=== PATIENT | male | born 1985 | race Caucasian/White ===

== ENCOUNTER 2020-06-28 19:54 | Emergency (ER) | payer MEDICARE, MEDICAID, SELFPAY ==
[2020-06-28 20:35] VITALS: BP 142/79; PULSE 78; RESP 18; TEMP 36.4; O2SAT 96; BMI 51.6
--- NOTE | 2020-06-28 20:48 | PC.NURSE ---
pt undressed in hospital clothing, calm cooperative wants to be seen to have his medications adjusted and to talk to someone. pt states he has had a poor appetite, decreased sleep, medications not working for almost a year now. pt just seen at his psyc and no adjustments made
[2020-06-28 20:56] VITALS: BP 142/79; PULSE 78; RESP 18; TEMP 36.4
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
[2020-06-28 21:52] LABS: Appearance Urine CLEAR; Color Urine YELLOW; Glucose Urine UA NEG (NEG); Leukocyte Esterase Urine NEG (NEG); Nitrite Urine NEG (NEG); Specific Gravity - Urine 1.025 (1.005-1.025); Urine Blood TRACE (NEG); Urine Ketones NEG (NEG); Urine Protein NEG (NEG-TRACE)
[2020-06-28 22:00] LABS: RBC Urine 0-2 /HPF (0); Squamous Epithelial Cell Urine TRACE /LPF; WBC Urine 0 /HPF (0-4)
[2020-06-28 22:04] LABS: Ethanol < 10 mg/dL
[2020-06-28 22:21] LABS: Amphetamine Screen Urine Not Detected (Not Detect); Barbiturates, Urine Not Detected (Not Detect); Benzodiazepines Screen Urine Not Detected (Not Detect); Cannabinoid Screen Urine Not Detected (Not Detect); Cocaine Screen Urine Not Detected (Not Detect); Opiate Screen Urine Not Detected (Not Detect); Phencyclidine Screen Urine Not Detected (Not Detect)
[2020-06-29 00:07] VITALS: BP 122/59; PULSE 77; RESP 16; O2SAT 95
--- NOTE | 2020-06-29 00:32 | PC.NURSE ---
report faxed to [facility] and received.
[2020-06-29 06:38] VITALS: BP 129/61; PULSE 67; RESP 16; TEMP 36.2; O2SAT 96
--- NOTE | 2020-06-29 07:26 | PC.NURSE ---
Report received. PT sleeping in bed. Breathing is even and unlabored. Waiting to be seen by N.
--- NOTE | 2020-06-29 08:39 | PC.NURSE ---
[facility]N at bedside.
[2020-06-29 08:49] VITALS: BP 122/62; PULSE 65; RESP 18; TEMP 37.2; O2SAT 98
--- NOTE | 2020-06-29 10:11 | PC.NURSE ---
PT resting in bed. Calm and cooperative. No complaints at this time.
--- NOTE | 2020-06-29 12:07 | PC.NURSE ---
PT is sleeping in bed. Breathing is even and unlabored. Inpatient bed search in progress.
--- NOTE | 2020-06-29 14:39 | PC.NURSE ---
PT is awake and oriented. PT requesting to go home now. [facility]N is coming to reevaluate prior to discharge.
--- NOTE | 2020-06-29 16:18 | PC.NURSE ---
PT is requesting to go home now. Waiting to be seen by [facility]N per provider.
== END 2020-06-29 17:48 | disposition home or self-care (01) ==
PROVIDERS: Emergency Provider Emergency Medicine; PCP Internal Medicine
DX: R45.851 Suicidal ideations (principal); F31.9 Bipolar disorder, unspecified; F17.200 Nicotine dependence, unspecified, uncomplicated; Z79.899 Other long term (current) drug therapy
CPT/HCPCS: 80307; 80320; 81001; 99285

== ENCOUNTER 2020-07-17 12:41 | Outpatient (REF) | payer MEDICARE, MEDICAID, SELFPAY ==
[2020-07-17 13:24] LABS: MANUAL DIFF FLAG NO
[2020-07-17 13:32] LABS: Basophils Absolute Auto 0.1 X10*3/uL (0.0-0.2); Basophils Percent Auto 0.6 % (0-2); Eosinophils Absolute Auto 0.2 X10*3/uL (0.0-0.4); Eosinophils Percent Auto 2.7 % (0-4); Hematocrit 38.9 % (42-52); Hemoglobin 12.3 g/dl (14.0-18.0); Imm Gran Abs Auto 0.03 X10*3/uL (0.00-0.03); Imm Gran Pct Auto 0.4 % (0.0-0.4); Lymphocytes Absolute Auto 2.4 X10*3/uL (1.2-4.9); Lymphocytes Percent Auto 30.7 % (20-40); Mean Corpuscular HGB Conc 31.6 g/dl (31.0-36.0); Mean Corpuscular Hemoglobin 24.3 pg (27.0-33.0); Mean Corpuscular Volume 76.9 fL (80-98); Mean Platelet Volume 9.5 fL (9.4-12.4); Monocytes Absolute Auto 0.6 X10*3/uL (0.1-1.2); Monocytes Percent Auto 8.2 % (2-11); Neutrophils Absolute Auto 4.5 X10*3/uL (2.0-8.3); Neutrophils Percent Auto 57.4 % (45-73); Platelet Count 305 X10*3/uL (160-400); Red Blood Count 5.06 X10*6/uL (4.60-5.80); Red Cell Distribution Width 13.5 % (11.0-16.0); White Blood Count 7.8 X10*3/uL (4.8-10.8)
== END 2020-07-17 12:42 | disposition home or self-care (01) ==
LOC: HO.LAB 12:41
PROVIDERS: PCP Internal Medicine; Visit Provider Clinical Nurse Specialist Psychiatric/Mental Health, Adult
DX: Z79.899 Other long term (current) drug therapy (principal)
CPT/HCPCS: 36415; 85025

== ENCOUNTER 2020-08-19 13:22 | Outpatient (REF) | payer MEDICARE, MEDICAID, SELFPAY ==
[2020-08-19 14:11] LABS: MANUAL DIFF FLAG NO
[2020-08-19 14:14] LABS: Basophils Absolute Auto 0.1 X10*3/uL (0.0-0.2); Basophils Percent Auto 0.6 % (0-2); Eosinophils Absolute Auto 0.3 X10*3/uL (0.0-0.4); Hematocrit 38.9 % (42-52); Hemoglobin 12.4 g/dl (14.0-18.0); Imm Gran Abs Auto 0.04 X10*3/uL (0.00-0.03); Imm Gran Pct Auto 0.4 % (0.0-0.4); Lymphocytes Absolute Auto 2.9 X10*3/uL (1.2-4.9); Lymphocytes Percent Auto 31.8 % (20-40); Mean Corpuscular HGB Conc 31.9 g/dl (31.0-36.0); Mean Corpuscular Hemoglobin 24.7 pg (27.0-33.0); Mean Corpuscular Volume 77.3 fL (80-98); Mean Platelet Volume 9.8 fL (9.4-12.4); Monocytes Absolute Auto 0.7 X10*3/uL (0.1-1.2); Monocytes Percent Auto 7.9 % (2-11); Neutrophils Percent Auto 56.3 % (45-73); Platelet Count 289 X10*3/uL (160-400); Red Blood Count 5.03 X10*6/uL (4.60-5.80)
== END 2020-08-19 13:23 | disposition home or self-care (01) ==
LOC: HO.LAB 13:22
PROVIDERS: PCP Internal Medicine; Visit Provider Clinical Nurse Specialist Psychiatric/Mental Health, Adult
DX: Z79.899 Other long term (current) drug therapy (principal)
CPT/HCPCS: 36415; 85025

== ENCOUNTER 2020-08-29 05:45 | Inpatient (IN) | payer MEDICARE, MEDICAID, SELFPAY ==
[2020-08-29 06:13] VITALS: BP 167/94; PULSE 94; RESP 18; TEMP 36; O2SAT 97; BMI 51.5
[2020-08-29 06:22] VITALS: BP 167/94; PULSE 94; RESP 20; TEMP 36; O2SAT 97
--- NOTE | 2020-08-29 06:57 | PC.NURSE ---
Report received. PT currently resting, breakfast at bedside. Pt waiting to be seen by provider and [facility]N.
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
--- NOTE | 2020-08-29 07:28 | PC.NURSE ---
LESLY faxed and called, confirmed with Beto.
[2020-08-29 08:06] LABS: Amphetamine Screen Urine Not Detected (Not Detect); Barbiturates, Urine Not Detected (Not Detect); Benzodiazepines Screen Urine Not Detected (Not Detect); Cannabinoid Screen Urine Not Detected (Not Detect); Cocaine Screen Urine Not Detected (Not Detect); Opiate Screen Urine Not Detected (Not Detect); Phencyclidine Screen Urine Not Detected (Not Detect)
[2020-08-29 09:00] VITALS: BP 122/56; PULSE 84; RESP 16; TEMP 37.2; O2SAT 95
--- NOTE | 2020-08-29 09:09 | PC.NURSE ---
[facility] at bedside for eval.
[2020-08-29 14:55] LABS: COVID-19 Test Negative (Negative)
[2020-08-29 15:29] VITALS: BP 125/70; PULSE 80; RESP 17; TEMP 36.8; O2SAT 95
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
[2020-08-29] MEDS: cloZAPine 25 MG TABLET 50 MG PO (21:26)
[2020-08-30 06:00] VITALS: BP 127/70; PULSE 84; TEMP 36.8
--- NOTE | 2020-08-30 08:00 | ECG_ITS ---
Test Reason : QTC Blood Pressure : / mmHG Vent. Rate : 062 BPM Atrial Rate : 062 BPM P-R Int : 138 ms QRS Dur : 120 ms QT Int : 410 ms P-R-T Axes : 029 039 018 degrees QTc Int : 416 ms Normal sinus rhythm Non-specific intra-ventricular conduction delay Borderline ECG When compared to the previous EKG of No significant changes seen Referred By: Radha Cha Electronically Signed By:CHANTEL PHAM MD
[2020-08-30 08:31] LABS: MANUAL DIFF FLAG NO
[2020-08-30 08:38] LABS: Basophils Absolute Auto 0.1 X10*3/uL (0.0-0.2); Basophils Percent Auto 0.6 % (0-2); Eosinophils Absolute Auto 0.3 X10*3/uL (0.0-0.4); Eosinophils Percent Auto 2.1 % (0-4); Hematocrit 37.7 % (42-52); Imm Gran Pct Auto 0.8 % (0.0-0.4); Lymphocytes Absolute Auto 3.3 X10*3/uL (1.2-4.9); Lymphocytes Percent Auto 26.9 % (20-40); Mean Corpuscular HGB Conc 31.8 g/dl (31.0-36.0); Mean Corpuscular Hemoglobin 24.6 pg (27.0-33.0); Mean Corpuscular Volume 77.3 fL (80-98); Mean Platelet Volume 9.2 fL (9.4-12.4); Monocytes Absolute Auto 1.1 X10*3/uL (0.1-1.2); Neutrophils Absolute Auto 7.4 X10*3/uL (2.0-8.3); Neutrophils Percent Auto 60.6 % (45-73); Platelet Count 281 X10*3/uL (160-400); Red Blood Count 4.88 X10*6/uL (4.60-5.80); White Blood Count 12.3 X10*3/uL (4.8-10.8)
[2020-08-30 08:51] LABS: Estimated Average Glucose 111 mg/dL; Hemoglobin A1c % 5.5 %
[2020-08-30] MEDS: cloZAPine 25 MG TABLET PO (08:55)
[2020-08-30] MEDS: cloZAPine 100 MG TABLET PO (08:55)
[2020-08-30] MEDS: OLANZapine 2.5 MG TABLET PO (08:55)
[2020-08-30] MEDS: OLANZapine 10 MG TABLET PO ×2 (08:56→20:58)
[2020-08-30 09:07] LABS: Alanine Aminotransferase 22 U/L (0-40); Alkaline Phosphatase 108 U/L (39-117); Anion Gap 10 (12-20); Aspartate Amino Transferase 15 U/L (5-37); Bilirubin Total 0.4 mg/dL (0.0-1.0); Blood Urea Nitrogen 15 mg/dL (9-16); Carbon Dioxide 32 mmol/L (22-29); Chloride 102 mmol/L (96-108); Cholesterol 147 mg/dL; Creatinine Clr Calc Pharmacy 200.8; Estimated Glomerular Filt Rate > 60; Glucose Fasting 98 mg/dL (60-99); HDL Cholesterol 35 mg/dL; LDL Cholesterol Calculated 60 mg/dl; Potassium 3.8 mmol/l (3.3-5.1); Sodium 140 mmol/L (135-145); Total Protein 6.2 g/dL (6.5-8.0); Triglycerides 263 mg/dL
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
[2020-08-30] MEDS: Omeprazole 20 MG CAPSULE.DR PO (15:57)
[2020-08-30 18:00] VITALS: BP 128/71; PULSE 88; TEMP 36.8
[2020-08-31 06:00] VITALS: BP 129/71; PULSE 84; RESP 20; TEMP 36.3; O2SAT 98
[2020-08-31] MEDS: OLANZapine 2.5 MG TABLET PO (08:20)
[2020-08-31] MEDS: cloZAPine 100 MG TABLET PO (08:20)
[2020-08-31] MEDS: cloZAPine 25 MG TABLET PO (08:21)
--- NOTE | 2020-08-31 12:24 | P.PNPSI_ITS ---
Subjective Subjective Date of Service: 08/31/20 Reason For Visit: depression suicidal ideation Subjective Notes: Conditional Voluntary Interim History: pt isolative, low mood, cooperative, sad, no active SI or HI, feels safe on unit Medication Compliance: Yes Side effects from medications: No Attending Groups: No Review of Systems Review of Systems no change- awaiting EKG results Reports as per HPI and Reports Abnormal speech present Mental Status Exam Mental Status Exam Patient Appearance: Fatigued and Disheveled Patient Orientation: Person, Place, Time and Situation Level of Consciousness: Drowsy (just waking up) Patient Behavior: Appropriate and Cooperative Mood Description: Withdrawn, Depressed, Labile (a little irritable at times) and Apprehensive Affect Description: Calm and Withdrawn Patient Cognition Impaired: No Ability to Follow Directions: Good Speech Pattern: Monotone and Delayed Thought Process: Goal Oriented Thought Content: negative for Tangential Abnormal Motor Activity Signs and Symptoms: Restlessness Judgement: Good Diagnostics Vital Signs (24Hr): Vital Signs - 24 hr 08/30/20 18:00 08/31/20 06:00 Temperature 98.3 F 97.3 F Pulse Rate 88 84 Respiratory Rate 20 Blood Pressure 128/71 129/71 Pulse Oximetry 98 Body Mass Index 51.5 Labs Results: 08/30/20 08:06 08/30/20 08:06 Labs: Laboratory Results - last 48 hr 08/29/20 08/30/20 08/30/20 14:36 08:06 08:06 WBC 12.3 H RBC 4.88 Hgb 12.0 L Hct 37.7 L MCV 77.3 L MCH 24.6 L MCHC 31.8 RDW 14.0 Plt Count 281 MPV 9.2 L Immature Gran % (Auto) 0.8 H Neut % (Auto) 60.6 Lymph % (Auto) 26.9 [place] % (Auto) 9.0 Eos % (Auto) 2.1 Baso % (Auto) 0.6 Lymph # (Auto) 3.3 [place] # (Auto) 1.1 Eos # (Auto) 0.3 Baso # (Auto) 0.1 Abs Immat Gran (auto) 0.10 H Absolute Neuts (auto) 7.4 Absolute Nucleated RBC 0.000 Nucleated RBC % (auto) 0.0 Sodium 140 Potassium 3.8 Chloride 102 Carbon Dioxide 32 H Anion Gap 10 L BUN 15 Creatinine 0.80 Estim Creat Clear Calc 200.8 Estimated GFR > 60 Fasting Glucose 98 Estimat Average Glucose Hemoglobin A1c % Calcium 9.0 Total Bilirubin 0.4 AST 15 ALT 22 Alkaline Phosphatase 108 Total Protein 6.2 L Albumin 4.0 Triglycerides 263 Cholesterol 147 LDL Cholesterol, Calc 60 HDL Cholesterol 35 COVID-19 ([facility]) Negative COVID-19 Clin Com See Note 08/30/20 08:06 WBC RBC Hgb Hct MCV MCH MCHC RDW Plt Count MPV Immature Gran % (Auto) Neut % (Auto) Lymph % (Auto) [place] % (Auto) Eos % (Auto) Baso % (Auto) Lymph # (Auto) [place] # (Auto) Eos # (Auto) Baso # (Auto) Abs Immat Gran (auto) Absolute Neuts (auto) Absolute Nucleated RBC Nucleated RBC % (auto) Sodium Potassium Chloride Carbon Dioxide Anion Gap BUN Creatinine Estim Creat Clear Calc Estimated GFR Fasting Glucose Estimat Average Glucose 111 Hemoglobin A1c % 5.5 Calcium Total Bilirubin AST ALT Alkaline Phosphatase Total Protein Albumin Triglycerides Cholesterol LDL Cholesterol, Calc HDL Cholesterol COVID-19 ([facility]) COVID-19 Clin Com Medications Medications Current Medications Generic Name Dose Route Start Last Admin Trade Name Freq PRN Reason Stop Dose Admin Acetaminophen 650 mg 08/29/20 20:25 Acetaminophen 325 Mg Tablet PO Q6H PRN Headache/Pain Mild Scale (1-3) Al Hydroxide/Mg Hydroxide 30 ml 08/29/20 20:25 Magnesium Hydrox/Alum Hydrox 30 Ml Oral.Susp PO Q6H PRN Heartburn/Nausea Clozapine 25 mg 08/30/20 09:00 08/31/20 08:21 Clozapine 25 Mg Tablet PO 25 mg DAILY YANN Administration Clozapine 100 mg 08/30/20 09:00 08/31/20 08:20 Clozapine 100 Mg Tablet PO 100 mg DAILY YANN Administration Hydroxyzine HCl 25 mg 08/29/20 20:25 Hydroxyzine Hcl 25 Mg Tablet PO BEDTIME PRN Anxiety Magnesium Hydroxide 30 ml 08/29/20 20:25 Milk Of Magnesia 30 Ml Oral.Susp PO DAILY PRN Constipation Olanzapine 2.5 mg 08/30/20 09:00 08/31/20 08:20 Olanzapine 2.5 Mg Tablet PO 2.5 mg DAILY YANN Administration Olanzapine 5 mg 08/29/20 21:14 Olanzapine 5 Mg Tablet PO DAILY PRN Psychosis/anxiety/agitation Olanzapine 10 mg 08/30/20 21:00 08/30/20 20:58 Olanzapine 10 Mg Tablet PO 10 mg BEDTIME YANN Administration Omeprazole 20 mg 08/30/20 16:30 08/30/20 15:57 Omeprazole 20 Mg Capsule.Dr PO 20 mg DAILY@1630 YANN Administration Trazodone HCl 50 mg 08/29/20 20:25 Trazodone Hcl 50 Mg Tablet PO BEDTIME PRN Insomnia Allergies Allergies Allergy/AdvReac Type Severity Reaction Status Date / Time No Known Allergies Allergy Unverified 05/29/20 16:16 [No Known Allergies*] Assessment & Plan Assessment & Plan (1) Suicidal ideation: Status: Acute Code(s): R45.851 - Suicidal ideations (2) Depression: Qualifiers: Depression Type: unspecified Qualified Code(s): F32.9 - Major depressive disorder, single episode, unspecified Status: Acute Code(s): F32.9 - Major depressive disorder, single episode, unspecified (3) Bipolar disorder: Status: Acute Code(s): F31.9 - Bipolar disorder, unspecified Assessment and Plan: awaiting EKG results contnue clozaril, zyprexa, hydroxyzine collateral contact to clarify medication plan by outpt psychiatrist Greater than 50% of the session was spent on counseling and/or coordination of care
[2020-08-31] MEDS: Omeprazole 20 MG CAPSULE.DR PO (16:14)
[2020-08-31 18:00] VITALS: BP 158/74; PULSE 93; TEMP 36.6
[2020-08-31] MEDS: OLANZapine 10 MG TABLET PO (20:23)
[2020-09-01] MEDS: hydrOXYzine HCL 25 MG TABLET PO ×2 (01:21→21:03)
[2020-09-01 05:50] VITALS: BP 133/59; PULSE 82; RESP 18; TEMP 36.6; O2SAT 97
[2020-09-01] MEDS: cloZAPine 100 MG TABLET PO (08:54)
[2020-09-01] MEDS: cloZAPine 25 MG TABLET PO (08:54)
[2020-09-01] MEDS: OLANZapine 2.5 MG TABLET PO (08:54)
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
[2020-09-01 16:56] VITALS: BP 149/85; PULSE 85; TEMP 36.9
[2020-09-01] MEDS: Omeprazole 20 MG CAPSULE.DR PO (16:59)
--- NOTE | 2020-09-01 19:49 | PC.NURSE ---
pt is restless and agitated that he was told he could not be discharged home before [facility]. is sitting with tense body, verbalizations of how he wants to call ''the police'' ''i'll kill them all and leave their bodies everywhere'' repeating 'i don't care i dont care'' visible but self isolative. unable to comfort or calm self. refused hs meal, states he will refuse medications. ''i'll be non compliant with meds or do something stupid so i get kicked out'' ''i know it's the law''
--- NOTE | 2020-09-01 20:34 | PC.NURSE ---
pt is exhibiting tension reduction. has been sitting in a rocking chair at the group room end of hallway. initially when approached was verbalizing angry statements of wanting to harm ''police or anyone who wanted to fight me'' ''send me to [facility]'' now is less angry, is now able to express disappointment of not being dc'd for [facility]. does feel staff are keeping him in the hospital to ''punish me'' also reports difficulties with relationship with parents. less hostile. no acting out.
[2020-09-01] MEDS: OLANZapine 10 MG TABLET PO (21:02)
[2020-09-01] MEDS: Acetaminophen 325 MG TABLET 650 MG PO (21:03)
[2020-09-02 06:15] VITALS: BP 123/65; PULSE 67; RESP 18; TEMP 36.4; O2SAT 96
[2020-09-02] MEDS: OLANZapine 2.5 MG TABLET PO (08:28)
[2020-09-02] MEDS: cloZAPine 100 MG TABLET PO (08:28)
[2020-09-02] MEDS: cloZAPine 25 MG TABLET PO (08:28)
[2020-09-02] MEDS: Omeprazole 20 MG CAPSULE.DR PO (16:15)
--- NOTE | 2020-09-02 17:35 | HO.PSYCHPN ---
Subjective Subjective Date of Service: 09/02/20 Reason For Visit: depression suicidal ideation Interim History: It is probably a good idea I stay in over the holiday. Case review with Renetta Larry of [facility] [phone] who leads pt's outreach team. She reports historically when pt has been off Clozaril he is not stable enough to be in community independent living and needs a intermediate setting. The team prefers he remain in pt at this time and reconsider Clozaril. Discussed with pt who will give this some thought. States the reason he asked to come off Clozaril included insomnia x 3 months, irritability, anger without rationale. Discussed possible augments for sx mgt. He will consider what course he would like to pursue. Discussed issues with his parents and feeling uncared for by them. Aware that his [facility] team is invested in his well being and working to achieve his highest level of functioning. Medication Compliance: Yes Side effects from medications: No Attending Groups: Intermittent Review of Systems Reports as per HPI, Reports Abnormal speech present and Reports behavioral changes Psychiatric: Reports abnormal sleep pattern, Reports anxiety, Reports behavioral changes, Reports depression, Reports irritability, Reports mood swings and Reports paranoia Mental Status Exam Mental Status Exam Patient Appearance: Appropriate Patient Orientation: Person, Place, Time and Situation Level of Consciousness: Awake, Appropriate and Alert Patient Behavior: Dependent and Anxious Mood Description: Anxious Affect Description: Anxious Patient Cognition Impaired: No Ability to Follow Directions: Good Speech Pattern: Clear, Appropriate and Spontaneous Speech Memory Description: Intact Hallucinations: None Delusions: Paranoid Ideation (at times) Thought Process: Rumination Thought Content: positive for [place] and positive for Circumstantial Depressive Symptoms: Increased Anxiety, Insomnia, Diff. Making Decisions, Increased Irritability, Difficulty Sleeping, Significant Weight Gain, Hopelessness, Unhappiness, Increased Fatigue, Low Self Esteem and Difficulty Concentrating Judgement: Fair Diagnostics Vital Signs (24Hr): Vital Signs - 24 hr 09/02/20 06:15 Temperature 97.5 F Pulse Rate 67 Respiratory Rate 18 Blood Pressure 123/65 Pulse Oximetry 96 Body Mass Index 51.5 Labs Results: 08/30/20 08:06 08/30/20 08:06 Medications Medications Current Medications Generic Name Dose Route Start Last Admin Trade Name Freq PRN Reason Stop Dose Admin Acetaminophen 650 mg 08/29/20 20:25 09/01/20 21:03 Acetaminophen 325 Mg Tablet PO 650 mg Q6H PRN Administration Headache/Pain Mild Scale (1-3) Al Hydroxide/Mg Hydroxide 30 ml 08/29/20 20:25 Magnesium Hydrox/Alum Hydrox 30 Ml Oral.Susp PO Q6H PRN Heartburn/Nausea Clozapine 25 mg 08/30/20 09:00 09/02/20 08:28 Clozapine 25 Mg Tablet PO 25 mg DAILY YANN Administration Clozapine 100 mg 08/30/20 09:00 09/02/20 08:28 Clozapine 100 Mg Tablet PO 100 mg DAILY YANN Administration Hydroxyzine HCl 25 mg 08/29/20 20:25 09/01/20 21:03 Hydroxyzine Hcl 25 Mg Tablet PO 25 mg BEDTIME PRN Administration Anxiety Magnesium Hydroxide 30 ml 08/29/20 20:25 Milk Of Magnesia 30 Ml Oral.Susp PO DAILY PRN Constipation Olanzapine 2.5 mg 08/30/20 09:00 09/02/20 08:28 Olanzapine 2.5 Mg Tablet PO 2.5 mg DAILY YANN Administration Olanzapine 5 mg 08/29/20 21:14 Olanzapine 5 Mg Tablet PO DAILY PRN Psychosis/anxiety/agitation Olanzapine 10 mg 08/30/20 21:00 09/01/20 21:02 Olanzapine 10 Mg Tablet PO 10 mg BEDTIME YANN Administration Omeprazole 20 mg 08/30/20 16:30 09/02/20 16:15 Omeprazole 20 Mg Capsule.Dr PO 20 mg DAILY@1630 YANN Administration Trazodone HCl 50 mg 08/29/20 20:25 Trazodone Hcl 50 Mg Tablet PO BEDTIME PRN Insomnia Allergies Allergies Allergy/AdvReac Type Severity Reaction Status Date / Time No Known Allergies Allergy Unverified 05/29/20 16:16 [No Known Allergies*] Assessment & Plan Assessment & Plan (1) Bipolar disorder: Qualifiers: Active/Remission status: currently active Current bipolar episode type: depressed Current episode severity: severe Psychotic features: with psychotic features Qualified Code(s): F31.5 - Bipolar disorder, current episode depressed, severe, with psychotic features Status: Acute Code(s): F31.9 - Bipolar disorder, unspecified (2) Schizophrenia: Qualifiers: Schizophrenia type: unspecified Qualified Code(s): F20.9 - Schizophrenia, unspecified Status: Acute Code(s): F20.9 - Schizophrenia, unspecified Greater than 50% of the session was spent on counseling and/or coordination of care Patient educated on: medication risk/benefits Informed Consent: further education needed Reason for contiued inpatient stay Substantial Risk for: inability to function and rapid decompensation
[2020-09-02 18:00] VITALS: BP 123/67; PULSE 92; TEMP 36.7
[2020-09-02] MEDS: Acetaminophen 325 MG TABLET 650 MG PO (20:50)
[2020-09-02] MEDS: OLANZapine 10 MG TABLET PO (22:16)
[2020-09-03] MEDS: hydrOXYzine HCL 25 MG TABLET PO ×2 (00:45→23:22)
[2020-09-03 06:20] VITALS: BP 125/58; PULSE 76; RESP 18; TEMP 36.8; O2SAT 95
[2020-09-03] MEDS: cloZAPine 25 MG TABLET PO (08:11)
[2020-09-03] MEDS: cloZAPine 100 MG TABLET PO (08:11)
[2020-09-03] MEDS: OLANZapine 2.5 MG TABLET PO (08:11)
[2020-09-03 09:48] LABS: Iron 38 mcg/dL (45-160); Percent Iron Saturation 12 % (15-50); Total Iron Binding Capacity 324 mcg/dL (228-428); Unsaturated Iron Binding 286 ug/dL
[2020-09-03 11:12] LABS: Vitamin B12 281 pg/mL (200-900)
--- NOTE | 2020-09-03 16:27 | HO.PSYCHPN ---
Subjective Subjective Date of Service: 09/03/20 Reason For Visit: depression suicidal ideation Subjective Notes: Conditional Voluntary Interim History: Discussed with Nathen medications, options, symptoms. Reports lability, precipitous anger for no apparant reason are difficult. Plans to return to Lamictal, Clozaril regime, by history per OP team, his most effective regime. Discussed low dose [place] during Lamictal re-titration to assist with lability sx mgt. Attempting to reach his team to discuss community living. Medication Compliance: Yes Side effects from medications: No Attending Groups: Intermittent Review of Systems Reports as per HPI and Reports behavioral changes Psychiatric: Reports behavioral changes, Reports irritability, Reports mood swings and Reports paranoia Mental Status Exam Mental Status Exam Patient Appearance: Appropriate Patient Orientation: Person, Place, Time and Situation Level of Consciousness: Awake, Appropriate and Alert Patient Behavior: Talkative and Anxious Mood Description: Suspicious, Withdrawn, Depressed, Anxious, Labile (per report), Nervous and Apprehensive Affect Description: Flat Patient Cognition Impaired: No Ability to Follow Directions: Good Speech Pattern: Spontaneous Speech Memory Description: Intact Hallucinations: None Delusions: Paranoid Ideation Thought Process: Distracted Thought Content: positive for [place], positive for Obsessional Thoughts, positive for Circumstantial, positive for Perseveration and positive for Preoccupation Depressive Symptoms: Increased Anxiety and Increased Irritability (per report) Judgement: Fair Diagnostics Vital Signs (24Hr): Vital Signs - 24 hr 09/02/20 18:00 09/03/20 06:20 Temperature 98.1 F 98.2 F Pulse Rate 92 76 Respiratory Rate 18 Blood Pressure 123/67 125/58 L Pulse Oximetry 95 Body Mass Index 51.5 Labs Results: 08/30/20 08:06 08/30/20 08:06 Labs: Laboratory Results - last 48 hr 09/03/20 09/03/20 09:07 09:07 Iron 38 L TIBC 324 % Saturation 12 L Unsat Iron Binding 286 Vitamin B12 281 Folate 10.0 Medications Medications Current Medications Generic Name Dose Route Start Last Admin Trade Name Freq PRN Reason Stop Dose Admin Acetaminophen 650 mg 08/29/20 20:25 09/02/20 20:50 Acetaminophen 325 Mg Tablet PO 650 mg Q6H PRN Administration Headache/Pain Mild Scale (1-3) Al Hydroxide/Mg Hydroxide 30 ml 08/29/20 20:25 Magnesium Hydrox/Alum Hydrox 30 Ml Oral.Susp PO Q6H PRN Heartburn/Nausea Clozapine 100 mg 08/30/20 09:00 09/03/20 08:11 Clozapine 100 Mg Tablet PO 100 mg DAILY YANN Administration Clozapine 50 mg 09/04/20 09:00 Clozapine 25 Mg Tablet PO DAILY YANN Hydroxyzine HCl 25 mg 08/29/20 20:25 09/03/20 00:45 Hydroxyzine Hcl 25 Mg Tablet PO 25 mg BEDTIME PRN Administration Anxiety Lamotrigine 25 mg 09/03/20 21:00 Lamotrigine 25 Mg Tablet PO BID YANN Magnesium Hydroxide 30 ml 08/29/20 20:25 Milk Of Magnesia 30 Ml Oral.Susp PO DAILY PRN Constipation Olanzapine 5 mg 08/29/20 21:14 Olanzapine 5 Mg Tablet PO DAILY PRN Psychosis/anxiety/agitation Olanzapine 10 mg 08/30/20 21:00 09/02/20 22:16 Olanzapine 10 Mg Tablet PO 10 mg BEDTIME YANN Administration Omeprazole 20 mg 08/30/20 16:30 09/02/20 16:15 Omeprazole 20 Mg Capsule.Dr PO 20 mg DAILY@1630 YANN Administration Trazodone HCl 50 mg 08/29/20 20:25 Trazodone Hcl 50 Mg Tablet PO BEDTIME PRN Insomnia Allergies Allergies Allergy/AdvReac Type Severity Reaction Status Date / Time No Known Allergies Allergy Unverified 05/29/20 16:16 [No Known Allergies*] Assessment & Plan Assessment & Plan (1) Bipolar disorder: Qualifiers: Active/Remission status: currently active Current bipolar episode type: depressed Current episode severity: severe Psychotic features: with psychotic features Qualified Code(s): F31.5 - Bipolar disorder, current episode depressed, severe, with psychotic features Status: Acute Code(s): F31.9 - Bipolar disorder, unspecified Assessment and Plan: -Re-initiate Lamictal 25 mg bid -[place] 300 mg hs (2) Schizophrenia: Qualifiers: Schizophrenia type: unspecified Qualified Code(s): F20.9 - Schizophrenia, unspecified Status: Acute Code(s): F20.9 - Schizophrenia, unspecified Assessment and Plan: -Increase Clozaril to 150 mg daily -Decrease Olanzapine to 10 mg daily -EKG -Message left for Renetta of [facility] to discuss pt's decision to re-establish regime. (3) Anemia: Status: Acute Code(s): D64.9 - Anemia, unspecified Assessment and Plan: FE 38 (45-160) %Sat 12 (15-50) Ferrous Sulfate 324 mg daily Greater than 50% of the session was spent on counseling and/or coordination of care Patient educated on: medication risk/benefits and therapeutic strategies Informed Consent: understands and further education needed (re-enforce) Reason for contiued inpatient stay Substantial Risk for: harm to self, harm to others and rapid decompensation
[2020-09-03 18:00] VITALS: BP 163/96; PULSE 88; TEMP 36.7
[2020-09-03] MEDS: Omeprazole 20 MG CAPSULE.DR PO (19:01)
[2020-09-03] MEDS: OLANZapine 10 MG TABLET PO (22:40)
[2020-09-03] MEDS: Lithium Carbonate 300 MG CAPSULE PO (22:40)
[2020-09-03] MEDS: lamoTRIgine 25 MG TABLET PO (22:40)
[2020-09-04 06:19] VITALS: BP 136/72; PULSE 96; RESP 18; TEMP 36.3; O2SAT 98
[2020-09-04 07:00] VITALS: BMI 49.4
[2020-09-04] MEDS: lamoTRIgine 25 MG TABLET PO ×2 (08:19→22:06)
[2020-09-04] MEDS: Ferrous Sulfate 324 MG TABLET.DR PO (08:20)
[2020-09-04] MEDS: cloZAPine 25 MG TABLET 50 MG PO (08:20)
[2020-09-04] MEDS: cloZAPine 100 MG TABLET PO (08:21)
[2020-09-04 16:30] VITALS: BP 150/86; PULSE 101; TEMP 36.6; O2SAT 97
--- NOTE | 2020-09-04 16:34 | HO.PSYCHPN ---
Subjective Subjective Date of Service: 09/04/20 Reason For Visit: depression suicidal ideation Interim History: Pt reports feeling somewhat improved with addition of [place]. He has spoken with his team at [facility] today which made him feel improved. Medication Compliance: Yes Side effects from medications: No Attending Groups: Intermittent Review of Systems Reports as per HPI, Reports Abnormal speech present and Reports behavioral changes Psychiatric: Reports anxiety, Reports behavioral changes, Reports depression, Reports hopelessness, Reports irritability, Reports mood swings and Reports paranoia Mental Status Exam Mental Status Exam Patient Appearance: Appropriate Patient Orientation: Person, Place, Time and Situation Level of Consciousness: Awake, Appropriate and Alert Patient Behavior: Appropriate and Anxious Mood Description: Anxious Affect Description: Flat Patient Cognition Impaired: No Ability to Follow Directions: Good Speech Pattern: Appropriate and Spontaneous Speech Memory Description: Intact Hallucinations: None Delusions: Paranoid Ideation Thought Process: Racing Thought Content: positive for Racing Depressive Symptoms: Insomnia (latency issues), Increased Irritability, Difficulty Sleeping, Unhappiness and Low Self Esteem Judgement: Fair Diagnostics Vital Signs (24Hr): Vital Signs - 24 hr 09/03/20 18:00 09/04/20 06:19 09/04/20 16:30 Temperature 98.0 F 97.4 F 97.9 F Pulse Rate 88 96 101 H Respiratory Rate 18 Blood Pressure 163/96 H 136/72 150/86 H Pulse Oximetry 98 97 Body Mass Index 49.4 Labs Results: 08/30/20 08:06 08/30/20 08:06 Labs: Laboratory Results - last 48 hr 09/03/20 09/03/20 09:07 09:07 Iron 38 L TIBC 324 % Saturation 12 L Unsat Iron Binding 286 Vitamin B12 281 Folate 10.0 Medications Medications Current Medications Generic Name Dose Route Start Last Admin Trade Name Freq PRN Reason Stop Dose Admin Acetaminophen 650 mg 08/29/20 20:25 09/02/20 20:50 Acetaminophen 325 Mg Tablet PO 650 mg Q6H PRN Administration Headache/Pain Mild Scale (1-3) Al Hydroxide/Mg Hydroxide 30 ml 08/29/20 20:25 Magnesium Hydrox/Alum Hydrox 30 Ml Oral.Susp PO Q6H PRN Heartburn/Nausea Clozapine 100 mg 08/30/20 09:00 09/04/20 08:21 Clozapine 100 Mg Tablet PO 100 mg DAILY YANN Administration Clozapine 50 mg 09/04/20 09:00 09/04/20 08:20 Clozapine 25 Mg Tablet PO 50 mg DAILY YANN Administration Ferrous Sulfate 324 mg 09/04/20 09:00 09/04/20 08:20 Ferrous Sulfate 324 Mg Tablet. PO 324 mg DAILY YANN Administration Hydroxyzine HCl 25 mg 08/29/20 20:25 09/03/20 23:22 Hydroxyzine Hcl 25 Mg Tablet PO 25 mg BEDTIME PRN Administration Anxiety Lamotrigine 25 mg 09/03/20 21:00 09/04/20 08:19 Lamotrigine 25 Mg Tablet PO 25 mg BID YANN Administration [place] Carbonate 300 mg 09/03/20 21:00 09/03/20 22:40 [place] Carbonate 300 Mg Capsule PO 300 mg BEDTIME YANN Administration Magnesium Hydroxide 30 ml 08/29/20 20:25 Milk Of Magnesia 30 Ml Oral.Susp PO DAILY PRN Constipation Olanzapine 5 mg 08/29/20 21:14 Olanzapine 5 Mg Tablet PO DAILY PRN Psychosis/anxiety/agitation Olanzapine 10 mg 08/30/20 21:00 09/03/20 22:40 Olanzapine 10 Mg Tablet PO 10 mg BEDTIME YANN Administration Omeprazole 20 mg 08/30/20 16:30 09/03/20 19:01 Omeprazole 20 Mg Capsule. PO 20 mg DAILY@1630 YANN Administration Trazodone HCl 100 mg 09/04/20 13:45 Trazodone Hcl 100 Mg Tablet PO BEDTIME PRN insomnia Allergies Allergies Allergy/AdvReac Type Severity Reaction Status Date / Time No Known Allergies Allergy Unverified 05/29/20 16:16 [No Known Allergies*] Assessment & Plan Assessment & Plan (1) Bipolar disorder: Qualifiers: Active/Remission status: currently active Current bipolar episode type: depressed Current episode severity: severe Psychotic features: with psychotic features Qualified Code(s): F31.5 - Bipolar disorder, current episode depressed, severe, with psychotic features Status: Acute Code(s): F31.9 - Bipolar disorder, unspecified Assessment and Plan: -Continue current regime _Increase Trazodone to 100 mg hs prn (2) Schizophrenia: Qualifiers: Schizophrenia type: unspecified Qualified Code(s): F20.9 - Schizophrenia, unspecified Status: Acute Code(s): F20.9 - Schizophrenia, unspecified Greater than 50% of the session was spent on counseling and/or coordination of care
[2020-09-04] MEDS: Omeprazole 20 MG CAPSULE.DR PO (16:56)
[2020-09-04] MEDS: OLANZapine 10 MG TABLET PO (22:06)
[2020-09-04] MEDS: Lithium Carbonate 300 MG CAPSULE PO (22:06)
[2020-09-04] MEDS: hydrOXYzine HCL 25 MG TABLET PO (22:06)
[2020-09-05 06:24] VITALS: BP 142/78; PULSE 76; RESP 16; TEMP 36.6
[2020-09-05] MEDS: Ferrous Sulfate 324 MG TABLET.DR PO (07:56)
[2020-09-05] MEDS: cloZAPine 25 MG TABLET 50 MG PO (07:56)
[2020-09-05] MEDS: cloZAPine 100 MG TABLET PO (07:56)
[2020-09-05] MEDS: lamoTRIgine 25 MG TABLET PO ×2 (07:58→21:39)
--- NOTE | 2020-09-05 11:33 | P.PNPSI_ITS ---
Subjective Subjective Date of Service: 09/05/20 Reason For Visit: depression suicidal ideation Interim History: patient calmer more reflective excepting of clozapine and lithium has been restarted Medication Compliance: Yes Side effects from medications: No Review of Systems Reports as per HPI, Reports Abnormal speech present and Reports behavioral changes Psychiatric: Reports behavioral changes Mental Status Exam Mental Status Exam Patient Appearance: Appropriate Patient Orientation: Person, Place, Time and Situation Level of Consciousness: Awake, Appropriate and Alert Patient Behavior: Appropriate and Anxious Mood Description: Anxious Affect Description: Flat Patient Cognition Impaired: No Ability to Follow Directions: Good Speech Pattern: Appropriate and Spontaneous Speech Memory Description: Intact Hallucinations: None Delusions: Paranoid Ideation Thought Process: Racing Thought Content: positive for Racing Depressive Symptoms: Insomnia (latency issues), Increased Irritability, Difficulty Sleeping, Unhappiness and Low Self Esteem Judgement: Fair Diagnostics Vital Signs (24Hr): Vital Signs - 24 hr 09/04/20 16:30 09/05/20 06:24 Temperature 97.9 F 97.9 F Pulse Rate 101 H 76 Respiratory Rate 16 Blood Pressure 150/86 H 142/78 H Pulse Oximetry 97 Body Mass Index 49.4 Labs Results: 08/30/20 08:06 08/30/20 08:06 Medications Medications Current Medications Generic Name Dose Route Start Last Admin Trade Name Freq PRN Reason Stop Dose Admin Acetaminophen 650 mg 08/29/20 20:25 09/02/20 20:50 Acetaminophen 325 Mg Tablet PO 650 mg Q6H PRN Administration Headache/Pain Mild Scale (1-3) Al Hydroxide/Mg Hydroxide 30 ml 08/29/20 20:25 Magnesium Hydrox/Alum Hydrox 30 Ml Oral.Susp PO Q6H PRN Heartburn/Nausea Clozapine 100 mg 08/30/20 09:00 09/05/20 07:56 Clozapine 100 Mg Tablet PO 100 mg DAILY YANN Administration Clozapine 50 mg 09/04/20 09:00 09/05/20 07:56 Clozapine 25 Mg Tablet PO 50 mg DAILY YANN Administration Ferrous Sulfate 324 mg 09/04/20 09:00 09/05/20 07:56 Ferrous Sulfate 324 Mg Tablet.Dr PO 324 mg DAILY YANN Administration Hydroxyzine HCl 25 mg 08/29/20 20:25 09/04/20 22:06 Hydroxyzine Hcl 25 Mg Tablet PO 25 mg BEDTIME PRN Administration Anxiety Lamotrigine 25 mg 09/03/20 21:00 09/05/20 07:58 Lamotrigine 25 Mg Tablet PO 25 mg BID YANN Administration [place] Carbonate 300 mg 09/03/20 21:00 09/04/20 22:06 [place] Carbonate 300 Mg Capsule PO 300 mg BEDTIME YANN Administration Magnesium Hydroxide 30 ml 08/29/20 20:25 Milk Of Magnesia 30 Ml Oral.Susp PO DAILY PRN Constipation Olanzapine 5 mg 08/29/20 21:14 Olanzapine 5 Mg Tablet PO DAILY PRN Psychosis/anxiety/agitation Olanzapine 10 mg 08/30/20 21:00 09/04/20 22:06 Olanzapine 10 Mg Tablet PO 10 mg BEDTIME YANN Administration Omeprazole 20 mg 08/30/20 16:30 09/04/20 16:56 Omeprazole 20 Mg Capsule.Dr PO 20 mg DAILY@1630 YANN Administration Trazodone HCl 100 mg 09/04/20 13:45 Trazodone Hcl 100 Mg Tablet PO BEDTIME PRN insomnia Allergies Allergies Allergy/AdvReac Type Severity Reaction Status Date / Time No Known Allergies Allergy Unverified 05/29/20 16:16 [No Known Allergies*] Assessment & Plan Assessment & Plan (1) Bipolar disorder: Qualifiers: Active/Remission status: currently active Current bipolar episode type: depressed Current episode severity: severe Psychotic features: with psychotic features Qualified Code(s): F31.5 - Bipolar disorder, current episode depressed, severe, with psychotic features Status: Acute Code(s): F31.9 - Bipolar disorder, unspecified Assessment and Plan: continue present treatment plan clozapine and lithium (2) Suicidal ideation: Status: Acute Code(s): R45.851 - Suicidal ideations Greater than 50% of the session was spent on counseling and/or coordination of care
[2020-09-05] MEDS: Omeprazole 20 MG CAPSULE.DR PO (16:05)
[2020-09-05 18:00] VITALS: BP 141/71; PULSE 83; TEMP 36.6
[2020-09-05] MEDS: hydrOXYzine HCL 25 MG TABLET PO (21:39)
[2020-09-05] MEDS: Lithium Carbonate 300 MG CAPSULE PO (21:39)
[2020-09-05] MEDS: OLANZapine 10 MG TABLET PO (21:39)
[2020-09-06] MEDS: cloZAPine 100 MG TABLET PO (08:35)
[2020-09-06] MEDS: lamoTRIgine 25 MG TABLET PO ×2 (08:35→21:27)
[2020-09-06] MEDS: cloZAPine 25 MG TABLET 50 MG PO (08:35)
[2020-09-06] MEDS: Ferrous Sulfate 324 MG TABLET.DR PO (08:35)
[2020-09-06] MEDS: OLANZapine 5 MG TABLET PO (09:49)
[2020-09-06 10:01] LABS: Neut%MD 60.7 %; Neutrophils Absolute Auto 6.1 X10*3/uL (2.0-8.3)
--- NOTE | 2020-09-06 11:00 | P.PNPSI_ITS ---
Subjective Subjective Date of Service: 09/07/20 Reason For Visit: depression suicidal ideation Interim History: pt calm but anxious obsessional agrreeable to going back on cloz plus lithium seems sedated Medication Compliance: Yes Side effects from medications: Yes Review of Systems Reports as per HPI, Reports Abnormal speech present and Reports behavioral changes Psychiatric: Reports behavioral changes Mental Status Exam Mental Status Exam Patient Appearance: Appropriate Patient Orientation: Person, Place, Time and Situation Level of Consciousness: Awake, Appropriate and Drowsy Patient Behavior: Appropriate, Anxious and Fatigued Mood Description: Anxious and Apprehensive Affect Description: Flat Patient Cognition Impaired: No Ability to Follow Directions: Good Speech Pattern: Appropriate and Spontaneous Speech Memory Description: Intact Hallucinations: None Delusions: Paranoid Ideation Thought Process: Racing Thought Content: positive for Racing Depressive Symptoms: Insomnia (latency issues), Increased Irritability, Difficulty Sleeping, Unhappiness and Low Self Esteem Judgement: Fair Diagnostics Vital Signs (24Hr): Vital Signs - 24 hr 09/05/20 18:00 Temperature 97.9 F Pulse Rate 83 Blood Pressure 141/71 H Body Mass Index 49.4 Labs Results: 08/30/20 08:06 08/30/20 08:06 Labs: Laboratory Results - last 48 hr 09/06/20 09:54 Absolute Neuts (auto) 6.1 Medications Medications Current Medications Generic Name Dose Route Start Last Admin Trade Name Freq PRN Reason Stop Dose Admin Acetaminophen 650 mg 08/29/20 20:25 09/02/20 20:50 Acetaminophen 325 Mg Tablet PO 650 mg Q6H PRN Administration Headache/Pain Mild Scale (1-3) Al Hydroxide/Mg Hydroxide 30 ml 08/29/20 20:25 Magnesium Hydrox/Alum Hydrox 30 Ml Oral.Susp PO Q6H PRN Heartburn/Nausea Clozapine 100 mg 08/30/20 09:00 09/06/20 08:35 Clozapine 100 Mg Tablet PO 100 mg DAILY YANN Administration Clozapine 50 mg 09/04/20 09:00 09/06/20 08:35 Clozapine 25 Mg Tablet PO 50 mg DAILY YANN Administration Ferrous Sulfate 324 mg 09/04/20 09:00 09/06/20 08:35 Ferrous Sulfate 324 Mg Tablet.Dr PO 324 mg DAILY YANN Administration Hydroxyzine HCl 25 mg 08/29/20 20:25 09/05/20 21:39 Hydroxyzine Hcl 25 Mg Tablet PO 25 mg BEDTIME PRN Administration Anxiety Lamotrigine 25 mg 09/03/20 21:00 09/06/20 08:35 Lamotrigine 25 Mg Tablet PO 25 mg BID YANN Administration [place] Carbonate 300 mg 09/03/20 21:00 09/05/20 21:39 [place] Carbonate 300 Mg Capsule PO 300 mg BEDTIME YANN Administration Magnesium Hydroxide 30 ml 08/29/20 20:25 Milk Of Magnesia 30 Ml Oral.Susp PO DAILY PRN Constipation Olanzapine 5 mg 08/29/20 21:14 09/06/20 09:49 Olanzapine 5 Mg Tablet PO 5 mg DAILY PRN Administration Psychosis/anxiety/agitation Olanzapine 10 mg 08/30/20 21:00 09/05/20 21:39 Olanzapine 10 Mg Tablet PO 10 mg BEDTIME YANN Administration Omeprazole 20 mg 08/30/20 16:30 09/05/20 16:05 Omeprazole 20 Mg Capsule.Dr PO 20 mg DAILY@1630 YANN Administration Trazodone HCl 100 mg 09/04/20 13:45 Trazodone Hcl 100 Mg Tablet PO BEDTIME PRN insomnia Allergies Allergies Allergy/AdvReac Type Severity Reaction Status Date / Time No Known Allergies Allergy Unverified 05/29/20 16:16 [No Known Allergies*] Assessment & Plan Assessment & Plan (1) Schizoaffective disorder, bipolar type: Status: Acute Code(s): F25.0 - Schizoaffective disorder, bipolar type Assessment and Plan: restarted clozapine on lamictal lithium (2) Noncompliance by refusing intervention or support: Status: Inactive Code(s): Z53.29 - Procedure and treatment not carried out because of patient's decision for other reasons Greater than 50% of the session was spent on counseling and/or coordination of care
[2020-09-06 16:59] VITALS: BP 140/71; PULSE 101; TEMP 36.6
[2020-09-06] MEDS: Omeprazole 20 MG CAPSULE.DR PO (17:00)
[2020-09-06] MEDS: Lithium Carbonate 300 MG CAPSULE PO (21:27)
[2020-09-06] MEDS: cloZAPine 25 MG TABLET PO (21:27)
[2020-09-06] MEDS: hydrOXYzine HCL 25 MG TABLET PO (21:29)
[2020-09-07 06:30] VITALS: BP 141/68; PULSE 68; RESP 18; TEMP 36.7; O2SAT 99
[2020-09-07] MEDS: Ferrous Sulfate 324 MG TABLET.DR PO (09:04)
[2020-09-07] MEDS: cloZAPine 25 MG TABLET 50 MG PO ×2 (09:04→21:35)
[2020-09-07] MEDS: lamoTRIgine 25 MG TABLET PO ×2 (09:04→21:35)
[2020-09-07] MEDS: cloZAPine 100 MG TABLET PO (09:04)
--- NOTE | 2020-09-07 10:39 | HO.PSYCHPN ---
Subjective Subjective Date of Service: 09/07/20 Reason For Visit: depression suicidal ideation Subjective Notes: Conditional Voluntary Interim History: patient somewhat sedated from clozapine some anxiety regarding discharge not combative agreeable to changing dosing to bedtime as per his usual Medication Compliance: Yes Side effects from medications: Yes Review of Systems Reports as per HPI, Reports Abnormal speech present and Reports behavioral changes Psychiatric: Reports behavioral changes Mental Status Exam Mental Status Exam Patient Appearance: Appropriate Patient Orientation: Person, Place, Time and Situation Level of Consciousness: Awake, Appropriate and Drowsy Patient Behavior: Appropriate, Anxious and Fatigued Mood Description: Anxious and Apprehensive Affect Description: Blunted, Flat and Apprehensive Patient Cognition Impaired: No Ability to Follow Directions: Good Speech Pattern: Appropriate and Spontaneous Speech Memory Description: Intact Hallucinations: None Thought Process: Racing Thought Content: positive for Racing Depressive Symptoms: Insomnia (latency issues), Increased Irritability, Difficulty Sleeping, Unhappiness and Low Self Esteem Judgement: Good Judgement and Insight: no gross paranoia or delusional material Diagnostics Vital Signs (24Hr): Vital Signs - 24 hr 09/06/20 16:59 09/07/20 06:30 Temperature 97.8 F 98.1 F Pulse Rate 101 H 68 Respiratory Rate 18 Blood Pressure 140/71 H 141/68 H Pulse Oximetry 99 Body Mass Index 49.4 Labs Results: 09/09/20 12:52 08/30/20 08:06 Labs: Laboratory Results - last 48 hr 09/06/20 09:54 Absolute Neuts (auto) 6.1 Medications Medications Current Medications Generic Name Dose Route Start Last Admin Trade Name Freq PRN Reason Stop Dose Admin Acetaminophen 650 mg 08/29/20 20:25 09/02/20 20:50 Acetaminophen 325 Mg Tablet PO 650 mg Q6H PRN Administration Headache/Pain Mild Scale (1-3) Al Hydroxide/Mg Hydroxide 30 ml 08/29/20 20:25 Magnesium Hydrox/Alum Hydrox 30 Ml Oral.Susp PO Q6H PRN Heartburn/Nausea Clozapine 100 mg 08/30/20 09:00 09/07/20 09:04 Clozapine 100 Mg Tablet PO 100 mg DAILY YANN Administration Clozapine 50 mg 09/07/20 21:00 Clozapine 25 Mg Tablet PO BEDTIME YANN Ferrous Sulfate 324 mg 09/04/20 09:00 09/07/20 09:04 Ferrous Sulfate 324 Mg Tablet. PO 324 mg DAILY YANN Administration Hydroxyzine HCl 25 mg 08/29/20 20:25 09/06/20 21:29 Hydroxyzine Hcl 25 Mg Tablet PO 25 mg BEDTIME PRN Administration Anxiety Lamotrigine 25 mg 09/03/20 21:00 09/07/20 09:04 Lamotrigine 25 Mg Tablet PO 25 mg BID YANN Administration [place] Carbonate 300 mg 09/03/20 21:00 09/06/20 21:27 [place] Carbonate 300 Mg Capsule PO 300 mg BEDTIME YANN Administration Magnesium Hydroxide 30 ml 08/29/20 20:25 Milk Of Magnesia 30 Ml Oral.Susp PO DAILY PRN Constipation Olanzapine 5 mg 08/29/20 21:14 09/06/20 09:49 Olanzapine 5 Mg Tablet PO 5 mg DAILY PRN Administration Psychosis/anxiety/agitation Omeprazole 20 mg 08/30/20 16:30 09/06/20 17:00 Omeprazole 20 Mg Capsule. PO 20 mg DAILY@1630 YANN Administration Trazodone HCl 100 mg 09/04/20 13:45 Trazodone Hcl 100 Mg Tablet PO BEDTIME PRN insomnia Allergies Allergies Allergy/AdvReac Type Severity Reaction Status Date / Time No Known Allergies Allergy Unverified 05/29/20 16:16 [No Known Allergies*] Assessment & Plan Assessment & Plan (1) Schizoaffective disorder, bipolar type: Status: Acute Code(s): F25.0 - Schizoaffective disorder, bipolar type Assessment and Plan: patient flat dysphoric come cooperative with present medication try and change clozapine to bedtime continue tx plan Greater than 50% of the session was spent on counseling and/or coordination of care
[2020-09-07] MEDS: Omeprazole 20 MG CAPSULE.DR PO (17:41)
[2020-09-07 18:00] VITALS: BP 135/79; PULSE 88; TEMP 36.2
[2020-09-07] MEDS: hydrOXYzine HCL 25 MG TABLET PO (21:34)
[2020-09-07] MEDS: Lithium Carbonate ER 450 MG TABLET.ER PO (21:35)
--- NOTE | 2020-09-08 | ECG_ITS ---
Test Reason : CP Blood Pressure : / mmHG Vent. Rate : 083 BPM Atrial Rate : 083 BPM P-R Int : 158 ms QRS Dur : 124 ms QT Int : 384 ms P-R-T Axes : 056 044 029 degrees QTc Int : 451 ms Normal sinus rhythm RSR' or QR pattern in V1 suggests right ventricular conduction delay Borderline ECG When compared with ECG of 31-AUG-2020 19:24, No significant change was found Referred By: Rukhsana Waldrop Electronically Signed By:AILIN BOLTON
[2020-09-08 06:00] VITALS: BP 128/59; PULSE 73; RESP 18; TEMP 36.5; O2SAT 96
[2020-09-08] MEDS: cloZAPine 100 MG TABLET PO (08:47)
[2020-09-08] MEDS: lamoTRIgine 25 MG TABLET PO ×2 (08:47→21:49)
[2020-09-08] MEDS: Ferrous Sulfate 324 MG TABLET.DR PO (08:47)
[2020-09-08] MEDS: Acetaminophen 325 MG TABLET 650 MG PO ×2 (14:46→20:52)
[2020-09-08] MEDS: Omeprazole 20 MG CAPSULE.DR PO (17:07)
--- NOTE | 2020-09-08 17:59 | P.PNPSI_ITS ---
Subjective Subjective Date of Service: 09/08/20 Reason For Visit: depression suicidal ideation Interim History: I would like to discharge today or tomorrow. 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 I like the [place] . I feel very clear. We increased it over the weekend. Medication Compliance: Yes Side effects from medications: No Attending Groups: Intermittent Review of Systems Review of Systems Yes all other systems are reviewed and are negative Reports as per HPI, Reports Abnormal speech present and Reports behavioral changes Psychiatric: Reports anxiety and Reports behavioral changes Mental Status Exam Mental Status Exam Patient Appearance: Appropriate Patient Orientation: Person, Place, Time and Situation Level of Consciousness: Awake, Appropriate and Alert Patient Behavior: Talkative, Cooperative and Anxious Mood Description: Anxious, Nervous and Apprehensive Affect Description: Anxious Patient Cognition Impaired: No Ability to Follow Directions: Good Speech Pattern: Clear, Perseverating and Pressured Memory Description: Intact Hallucinations: None Delusions: Not Present Thought Process: Intact and Distracted Thought Content: positive for Intact Depressive Symptoms: Increased Anxiety Judgement: Good Diagnostics Vital Signs (24Hr): Vital Signs - 24 hr 09/07/20 18:00 09/08/20 06:00 Temperature 97.1 F 97.7 F Pulse Rate 88 73 Respiratory Rate 18 Blood Pressure 135/79 128/59 L Pulse Oximetry 96 Body Mass Index 49.4 Labs Results: 08/30/20 08:06 08/30/20 08:06 Medications Medications Current Medications Generic Name Dose Route Start Last Admin Trade Name Freq PRN Reason Stop Dose Admin Acetaminophen 650 mg 08/29/20 20:25 09/08/20 14:46 Acetaminophen 325 Mg Tablet PO 650 mg Q6H PRN Administration Headache/Pain Mild Scale (1-3) Al Hydroxide/Mg Hydroxide 30 ml 08/29/20 20:25 Magnesium Hydrox/Alum Hydrox 30 Ml Oral.Susp PO Q6H PRN Heartburn/Nausea Clozapine 100 mg 08/30/20 09:00 09/08/20 08:47 Clozapine 100 Mg Tablet PO 100 mg DAILY YANN Administration Clozapine 50 mg 09/07/20 21:00 09/07/20 21:35 Clozapine 25 Mg Tablet PO 50 mg BEDTIME YANN Administration Ferrous Sulfate 324 mg 09/04/20 09:00 09/08/20 08:47 Ferrous Sulfate 324 Mg Tablet. PO 324 mg DAILY YANN Administration Hydroxyzine HCl 25 mg 08/29/20 20:25 09/07/20 21:34 Hydroxyzine Hcl 25 Mg Tablet PO 25 mg BEDTIME PRN Administration Anxiety Lamotrigine 25 mg 09/03/20 21:00 09/08/20 08:47 Lamotrigine 25 Mg Tablet PO 25 mg BID YANN Administration [place] Carbonate 450 mg 09/07/20 21:00 09/07/20 21:35 [place] Carbonate Er 450 Mg Tablet.Er PO 450 mg BEDTIME YANN Administration Magnesium Hydroxide 30 ml 08/29/20 20:25 Milk Of Magnesia 30 Ml Oral.Susp PO DAILY PRN Constipation Olanzapine 5 mg 08/29/20 21:14 09/06/20 09:49 Olanzapine 5 Mg Tablet PO 5 mg DAILY PRN Administration Psychosis/anxiety/agitation Omeprazole 20 mg 08/30/20 16:30 09/08/20 17:07 Omeprazole 20 Mg Capsule. PO 20 mg DAILY@1630 YANN Administration Trazodone HCl 100 mg 09/04/20 13:45 Trazodone Hcl 100 Mg Tablet PO BEDTIME PRN insomnia Allergies Allergies Allergy/AdvReac Type Severity Reaction Status Date / Time No Known Allergies Allergy Unverified 05/29/20 16:16 [No Known Allergies*] Assessment & Plan Assessment & Plan (1) Schizoaffective disorder, bipolar type: Status: Acute Code(s): F25.0 - Schizoaffective disorder, bipolar type Greater than 50% of the session was spent on counseling and/or coordination of care Patient educated on: medication risk/benefits and therapeutic strategies Informed Consent: understands and further education needed Reason for contiued inpatient stay Substantial Risk for: harm to self, harm to others, inability to function and rapid decompensation
[2020-09-08 21:09] VITALS: BP 147/77; PULSE 89; TEMP 36.7
[2020-09-08] MEDS: cloZAPine 25 MG TABLET 50 MG PO (21:49)
[2020-09-08] MEDS: hydrOXYzine HCL 25 MG TABLET PO (21:49)
[2020-09-08] MEDS: Lithium Carbonate ER 450 MG TABLET.ER PO (21:49)
[2020-09-09 06:20] VITALS: BP 118/69; PULSE 64; RESP 20; TEMP 36.5; O2SAT 97
[2020-09-09 08:46] LABS: Lithium 0.24 mmol/L (0.60-1.20)
[2020-09-09] MEDS: cloZAPine 100 MG TABLET PO (08:51)
[2020-09-09] MEDS: Ferrous Sulfate 324 MG TABLET.DR PO (08:51)
[2020-09-09] MEDS: lamoTRIgine 25 MG TABLET PO (08:51)
[2020-09-09 13:33] LABS: Basophils Absolute Auto 0.1 X10*3/uL (0.0-0.2); Basophils Percent Auto 0.6 % (0-2); Eosinophils Absolute Auto 0.2 X10*3/uL (0.0-0.4); Eosinophils Percent Auto 1.8 % (0-4); Hematocrit 40.2 % (42-52); Hemoglobin 12.7 g/dl (14.0-18.0); Imm Gran Abs Auto 0.06 X10*3/uL (0.00-0.03); Imm Gran Pct Auto 0.6 % (0.0-0.4); Lymphocytes Absolute Auto 2.3 X10*3/uL (1.2-4.9); Lymphocytes Percent Auto 21.5 % (20-40); MANUAL DIFF FLAG NO; Mean Corpuscular HGB Conc 31.6 g/dl (31.0-36.0); Mean Corpuscular Hemoglobin 24.2 pg (27.0-33.0); Mean Corpuscular Volume 76.7 fL (80-98); Mean Platelet Volume 9.1 fL (9.4-12.4); Monocytes Absolute Auto 0.7 X10*3/uL (0.1-1.2); Monocytes Percent Auto 6.6 % (2-11); Neutrophils Absolute Auto 7.3 X10*3/uL (2.0-8.3); Neutrophils Percent Auto 68.9 % (45-73); Platelet Count 289 X10*3/uL (160-400); Red Blood Count 5.24 X10*6/uL (4.60-5.80); Red Cell Distribution Width 13.6 % (11.0-16.0); White Blood Count 10.5 X10*3/uL (4.8-10.8)
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
== END 2020-09-09 14:25 | disposition home or self-care (01) | DRG 885 ==
LOC: HO.ED 16:11 → HO.PM5 17:14
PROVIDERS: Clinical Nurse Specialist Psychiatric/Mental Health; Clinical Nurse Specialist Psychiatric/Mental Health, Adult; Admitting Provider Psychiatry & Neurology Psychiatry; Emergency Provider Emergency Medicine Emergency Medical Services; Visit Provider Psychiatry & Neurology Psychiatry
DX: F25.0 Schizoaffective disorder, bipolar type (principal); R45.851 Suicidal ideations; D64.9 Anemia, unspecified; Z91.19 Patient's noncompliance with other medical treatment and regimen; Z20.828 Contact with and (suspected) exposure to other viral communicable diseases; Z79.899 Other long term (current) drug therapy
CPT/HCPCS: 36415; 80053; 80061; 80178; 80307; 82607; 82746; 83036; 83540; 85025; 85048; 87635; 90792; 93005; 99232; 99233; 99239; 99285

== ENCOUNTER 2020-09-22 13:01 | Outpatient (REF) | payer MEDICARE, MEDICAID, SELFPAY ==
[2020-09-22 14:16] LABS: Basophils Absolute Auto 0.1 X10*3/uL (0.0-0.2); Basophils Percent Auto 0.7 % (0-2); Eosinophils Absolute Auto 0.3 X10*3/uL (0.0-0.4); Eosinophils Percent Auto 2.5 % (0-4); Hematocrit 41.4 % (42-52); Hemoglobin 12.9 g/dl (14.0-18.0); Imm Gran Pct Auto 0.9 % (0.0-0.4); Lymphocytes Absolute Auto 2.6 X10*3/uL (1.2-4.9); Lymphocytes Percent Auto 24.2 % (20-40); MANUAL DIFF FLAG NO; Mean Corpuscular HGB Conc 31.2 g/dl (31.0-36.0); Monocytes Absolute Auto 0.8 X10*3/uL (0.1-1.2); Monocytes Percent Auto 7.1 % (2-11); Neutrophils Absolute Auto 6.9 X10*3/uL (2.0-8.3); Neutrophils Percent Auto 64.6 % (45-73); Platelet Count 322 X10*3/uL (160-400); Red Blood Count 5.38 X10*6/uL (4.60-5.80); Red Cell Distribution Width 13.7 % (11.0-16.0); White Blood Count 10.7 X10*3/uL (4.8-10.8)
== END 2020-09-22 13:02 | disposition home or self-care (01) ==
LOC: HO.LAB 13:01
PROVIDERS: PCP Internal Medicine; Visit Provider Clinical Nurse Specialist Psychiatric/Mental Health, Adult
DX: Z79.899 Other long term (current) drug therapy (principal)
CPT/HCPCS: 36415; 85025

== ENCOUNTER 2020-10-23 13:24 | Outpatient (REF) | payer MEDICARE, MEDICAID, SELFPAY ==
[2020-10-23 13:48] LABS: MANUAL DIFF FLAG NO
[2020-10-23 14:01] LABS: Basophils Absolute Auto 0.1 X10*3/uL (0.0-0.2); Basophils Percent Auto 0.7 % (0-2); Eosinophils Absolute Auto 0.3 X10*3/uL (0.0-0.4); Eosinophils Percent Auto 3.2 % (0-4); Hematocrit 39.8 % (42-52); Hemoglobin 12.5 g/dl (14.0-18.0); Imm Gran Abs Auto 0.05 X10*3/uL (0.00-0.03); Imm Gran Pct Auto 0.5 % (0.0-0.4); Lymphocytes Absolute Auto 2.8 X10*3/uL (1.2-4.9); Lymphocytes Percent Auto 27.5 % (20-40); Mean Corpuscular HGB Conc 31.4 g/dl (31.0-36.0); Mean Corpuscular Hemoglobin 24.2 pg (27.0-33.0); Mean Corpuscular Volume 77.1 fL (80-98); Mean Platelet Volume 9.3 fL (9.4-12.4); Monocytes Absolute Auto 0.8 X10*3/uL (0.1-1.2); Monocytes Percent Auto 7.4 % (2-11); Neutrophils Absolute Auto 6.1 X10*3/uL (2.0-8.3); Neutrophils Percent Auto 60.7 % (45-73); Platelet Count 292 X10*3/uL (160-400); Red Blood Count 5.16 X10*6/uL (4.60-5.80); Red Cell Distribution Width 13.6 % (11.0-16.0); White Blood Count 10.1 X10*3/uL (4.8-10.8)
== END 2020-10-23 13:25 | disposition home or self-care (01) ==
LOC: HO.LAB 13:24
PROVIDERS: PCP Internal Medicine; Visit Provider Clinical Nurse Specialist Psychiatric/Mental Health, Adult
DX: Z79.899 Other long term (current) drug therapy (principal)
CPT/HCPCS: 36415; 85025

== ENCOUNTER 2020-11-10 13:23 | Outpatient (REF) | payer MEDICARE, MEDICAID, SELFPAY ==
[2020-11-10 14:51] LABS: MANUAL DIFF FLAG NO
[2020-11-10 15:01] LABS: Basophils Percent Auto 0.5 % (0-2); Eosinophils Absolute Auto 0.3 X10*3/uL (0.0-0.4); Eosinophils Percent Auto 3.1 % (0-4); Hematocrit 39.8 % (42-52); Hemoglobin 12.5 g/dl (14.0-18.0); Imm Gran Abs Auto 0.04 X10*3/uL (0.00-0.03); Imm Gran Pct Auto 0.5 % (0.0-0.4); Lymphocytes Absolute Auto 2.5 X10*3/uL (1.2-4.9); Lymphocytes Percent Auto 28.7 % (20-40); Mean Corpuscular HGB Conc 31.4 g/dl (31.0-36.0); Mean Corpuscular Hemoglobin 24.2 pg (27.0-33.0); Mean Corpuscular Volume 77.1 fL (80-98); Mean Platelet Volume 9.4 fL (9.4-12.4); Monocytes Absolute Auto 0.7 X10*3/uL (0.1-1.2); Monocytes Percent Auto 7.9 % (2-11); Neutrophils Absolute Auto 5.2 X10*3/uL (2.0-8.3); Neutrophils Percent Auto 59.3 % (45-73); Platelet Count 306 X10*3/uL (160-400); Red Blood Count 5.16 X10*6/uL (4.60-5.80); Red Cell Distribution Width 13.8 % (11.0-16.0); White Blood Count 8.7 X10*3/uL (4.8-10.8)
== END 2020-11-10 13:24 | disposition home or self-care (01) ==
LOC: HO.LAB 13:23
PROVIDERS: PCP Internal Medicine; Visit Provider Clinical Nurse Specialist Psychiatric/Mental Health, Adult
DX: Z79.899 Other long term (current) drug therapy (principal)
CPT/HCPCS: 36415; 85025

== ENCOUNTER 2020-12-10 11:27 | Outpatient (REF) | payer MEDICARE, MEDICAID, SELFPAY ==
[2020-12-10 14:08] LABS: MANUAL DIFF FLAG NO
[2020-12-10 14:17] LABS: Basophils Absolute Auto 0.1 X10*3/uL (0.0-0.2); Basophils Percent Auto 0.6 % (0-2); Eosinophils Absolute Auto 0.2 X10*3/uL (0.0-0.4); Eosinophils Percent Auto 3.1 % (0-4); Hematocrit 39.3 % (42-52); Hemoglobin 12.3 g/dl (14.0-18.0); Imm Gran Abs Auto 0.04 X10*3/uL (0.00-0.03); Imm Gran Pct Auto 0.5 % (0.0-0.4); Lymphocytes Absolute Auto 2.4 X10*3/uL (1.2-4.9); Lymphocytes Percent Auto 30.1 % (20-40); Mean Corpuscular HGB Conc 31.3 g/dl (31.0-36.0); Mean Corpuscular Hemoglobin 24.4 pg (27.0-33.0); Mean Corpuscular Volume 77.8 fL (80-98); Mean Platelet Volume 9.9 fL (9.4-12.4); Monocytes Absolute Auto 0.6 X10*3/uL (0.1-1.2); Monocytes Percent Auto 8.2 % (2-11); Neutrophils Absolute Auto 4.5 X10*3/uL (2.0-8.3); Neutrophils Percent Auto 57.5 % (45-73); Platelet Count 307 X10*3/uL (160-400); Red Blood Count 5.05 X10*6/uL (4.60-5.80); Red Cell Distribution Width 13.3 % (11.0-16.0); White Blood Count 7.8 X10*3/uL (4.8-10.8)
== END 2020-12-10 11:28 | disposition home or self-care (01) ==
LOC: HO.10HDL 11:27
PROVIDERS: Visit Provider Clinical Nurse Specialist Psychiatric/Mental Health, Adult
DX: Z79.899 Other long term (current) drug therapy (principal)
CPT/HCPCS: 36415; 85025

== ENCOUNTER 2021-01-13 11:03 | Outpatient (REF) | payer MEDICARE, MEDICAID, SELFPAY ==
[2021-01-13 14:06] LABS: MANUAL DIFF FLAG NO
[2021-01-13 14:26] LABS: Basophils Absolute Auto 0.1 X10*3/uL (0.0-0.2); Basophils Percent Auto 0.8 % (0-2); Eosinophils Absolute Auto 0.3 X10*3/uL (0.0-0.4); Eosinophils Percent Auto 2.8 % (0-4); Hematocrit 40.1 % (42-52); Hemoglobin 12.5 g/dl (14.0-18.0); Imm Gran Abs Auto 0.04 X10*3/uL (0.00-0.03); Imm Gran Pct Auto 0.4 % (0.0-0.4); Lymphocytes Absolute Auto 2.6 X10*3/uL (1.2-4.9); Lymphocytes Percent Auto 28.5 % (20-40); Mean Corpuscular HGB Conc 31.2 g/dl (31.0-36.0); Mean Corpuscular Hemoglobin 24.2 pg (27.0-33.0); Mean Corpuscular Volume 77.6 fL (80-98); Mean Platelet Volume 9.9 fL (9.4-12.4); Monocytes Absolute Auto 0.9 X10*3/uL (0.1-1.2); Monocytes Percent Auto 9.8 % (2-11); Neutrophils Absolute Auto 5.3 X10*3/uL (2.0-8.3); Neutrophils Percent Auto 57.7 % (45-73); Platelet Count 288 X10*3/uL (160-400); Red Blood Count 5.17 X10*6/uL (4.60-5.80); Red Cell Distribution Width 13.4 % (11.0-16.0); White Blood Count 9.3 X10*3/uL (4.8-10.8)
== END 2021-01-13 11:04 | disposition home or self-care (01) ==
LOC: HO.10HDLR 11:03
PROVIDERS: Visit Provider Clinical Nurse Specialist Psychiatric/Mental Health, Adult
DX: Z79.899 Other long term (current) drug therapy (principal)
CPT/HCPCS: 36415; 85025

== ENCOUNTER 2021-02-12 10:53 | Outpatient (REF) | payer MEDICARE, MEDICAID, SELFPAY ==
[2021-02-12 13:08] LABS: MANUAL DIFF FLAG NO
[2021-02-12 13:18] LABS: Basophils Absolute Auto 0.1 X10*3/uL (0.0-0.2); Basophils Percent Auto 0.7 % (0-2); Eosinophils Absolute Auto 0.4 X10*3/uL (0.0-0.4); Eosinophils Percent Auto 3.4 % (0-4); Hematocrit 40.9 % (42-52); Hemoglobin 12.8 g/dl (14.0-18.0); Imm Gran Abs Auto 0.07 X10*3/uL (0.00-0.03); Imm Gran Pct Auto 0.7 % (0.0-0.4); Lymphocytes Absolute Auto 2.8 X10*3/uL (1.2-4.9); Lymphocytes Percent Auto 26.2 % (20-40); Mean Corpuscular HGB Conc 31.3 g/dl (31.0-36.0); Mean Corpuscular Volume 76.6 fL (80-98); Mean Platelet Volume 9.4 fL (9.4-12.4); Monocytes Absolute Auto 0.9 X10*3/uL (0.1-1.2); Neutrophils Absolute Auto 6.6 X10*3/uL (2.0-8.3); Platelet Count 340 X10*3/uL (160-400); Red Blood Count 5.34 X10*6/uL (4.60-5.80); Red Cell Distribution Width 13.5 % (11.0-16.0); White Blood Count 10.8 X10*3/uL (4.8-10.8)
[2021-02-12 13:19] LABS: Estimated Average Glucose 111 mg/dL; Hemoglobin A1c % 5.5 %
[2021-02-12 13:48] LABS: Alanine Aminotransferase 27 U/L (0-40); Albumin Level 4.3 g/dL (3.5-5.0); Alkaline Phosphatase 118 U/L (39-117); Anion Gap 13 (12-20); Aspartate Amino Transferase 16 U/L (5-37); Bilirubin Total 0.5 mg/dL (0.0-1.0); Blood Urea Nitrogen 12 mg/dL (9-16); Calcium 9.9 mg/dL (8.4-10.2); Carbon Dioxide 28 mmol/L (22-29); Chloride 103 mmol/L (96-108); Estimated Glomerular Filt Rate > 60; Glucose Fasting 111 mg/dL (60-99); Iron 46 mcg/dL (45-160); Percent Iron Saturation 14 % (15-50); Potassium 4.2 mmol/L (3.3-5.1); Sodium 140 mmol/L (135-145); Total Iron Binding Capacity 336 mcg/dL (228-428); Total Protein 6.8 g/dL (6.5-8.0); Unsaturated Iron Binding 290 ug/dL
[2021-02-12 14:09] LABS: Thyroid Stimulating Hormone 1.75 uIU/mL (0.32-4.0)
== END 2021-02-12 10:54 | disposition home or self-care (01) ==
LOC: HO.10HDL 10:53
PROVIDERS: Clinical Nurse Specialist Psychiatric/Mental Health, Adult; PCP Internal Medicine; Visit Provider Internal Medicine
DX: D64.9 Anemia, unspecified (principal); F31.9 Bipolar disorder, unspecified; K21.9 Gastro-esophageal reflux disease without esophagitis; R73.03 Prediabetes; R63.5 Abnormal weight gain; Z79.899 Other long term (current) drug therapy
CPT/HCPCS: 36415; 80053; 80178; 83036; 83540; 84443; 85025

== ENCOUNTER 2021-03-11 11:37 | Outpatient (REF) | payer MEDICARE, MEDICAID, SELFPAY ==
[2021-03-11 13:44] LABS: MANUAL DIFF FLAG NO
[2021-03-11 13:59] LABS: Basophils Absolute Auto 0.1 X10*3/uL (0.0-0.2); Basophils Percent Auto 0.6 % (0-2); Eosinophils Absolute Auto 0.4 X10*3/uL (0.0-0.4); Eosinophils Percent Auto 3.7 % (0-4); Hematocrit 39.3 % (42-52); Hemoglobin 12.1 g/dl (14.0-18.0); Imm Gran Abs Auto 0.08 X10*3/uL (0.00-0.03); Imm Gran Pct Auto 0.8 % (0.0-0.4); Lymphocytes Absolute Auto 3.2 X10*3/uL (1.2-4.9); Lymphocytes Percent Auto 31.2 % (20-40); Mean Corpuscular HGB Conc 30.8 g/dl (31.0-36.0); Mean Corpuscular Hemoglobin 23.9 pg (27.0-33.0); Mean Corpuscular Volume 77.7 fL (80-98); Monocytes Absolute Auto 0.8 X10*3/uL (0.1-1.2); Monocytes Percent Auto 7.9 % (2-11); Neutrophils Absolute Auto 5.7 X10*3/uL (2.0-8.3); Neutrophils Percent Auto 55.8 % (45-73); Platelet Count 302 X10*3/uL (160-400); Red Blood Count 5.06 X10*6/uL (4.60-5.80); Red Cell Distribution Width 13.8 % (11.0-16.0); White Blood Count 10.2 X10*3/uL (4.8-10.8)
== END 2021-03-11 11:38 | disposition home or self-care (01) ==
LOC: HO.10HDL 11:37
PROVIDERS: Visit Provider Clinical Nurse Specialist Psychiatric/Mental Health, Adult
DX: Z79.899 Other long term (current) drug therapy (principal)
CPT/HCPCS: 36415; 85025

== ENCOUNTER 2021-04-08 11:13 | Outpatient (REF) | payer MEDICARE, MEDICAID, SELFPAY ==
[2021-04-08 12:28] LABS: MANUAL DIFF FLAG NO
[2021-04-08 12:39] LABS: Basophils Absolute Auto 0.1 X10*3/uL (0.0-0.2); Basophils Percent Auto 0.6 % (0-2); Eosinophils Absolute Auto 0.4 X10*3/uL (0.0-0.4); Eosinophils Percent Auto 3.8 % (0-4); Hematocrit 39.8 % (42-52); Hemoglobin 12.5 g/dl (14.0-18.0); Imm Gran Abs Auto 0.06 X10*3/uL (0.00-0.03); Imm Gran Pct Auto 0.6 % (0.0-0.4); Lymphocytes Absolute Auto 2.8 X10*3/uL (1.2-4.9); Mean Corpuscular HGB Conc 31.4 g/dl (31.0-36.0); Mean Corpuscular Hemoglobin 24.2 pg (27.0-33.0); Mean Corpuscular Volume 77.1 fL (80-98); Mean Platelet Volume 9.9 fL (9.4-12.4); Monocytes Absolute Auto 0.8 X10*3/uL (0.1-1.2); Monocytes Percent Auto 8.7 % (2-11); Neutrophils Absolute Auto 5.2 X10*3/uL (2.0-8.3); Neutrophils Percent Auto 56.3 % (45-73); Platelet Count 319 X10*3/uL (160-400); Red Blood Count 5.16 X10*6/uL (4.60-5.80); Red Cell Distribution Width 13.9 % (11.0-16.0); White Blood Count 9.3 X10*3/uL (4.8-10.8)
[2021-04-14 16:11] LABS: Clozapine (Clozaril) 171 mcg/L; Norclozapine 104 mcg/L (25-400)
== END 2021-04-08 11:14 | disposition home or self-care (01) ==
LOC: HO.LABR 11:13
PROVIDERS: PCP Internal Medicine; Visit Provider Clinical Nurse Specialist Psychiatric/Mental Health, Adult
DX: Z79.899 Other long term (current) drug therapy (principal)
CPT/HCPCS: 36415; 80159; 85025

== ENCOUNTER 2021-04-10 18:46 | Inpatient (IN) | payer MEDICARE, MEDICAID, SELFPAY ==
[2021-04-10 19:11] VITALS: BP 151/73; PULSE 82; RESP 16; TEMP 36.6; O2SAT 95; BMI 51.6
[2021-04-10 19:46] LABS: COVID-19 Test Negative (Negative); Glucose Urine UA NEG (NEG); Leukocyte Esterase Urine NEG (NEG); Nitrite Urine NEG (NEG); Specific Gravity - Urine >= 1.030 (1.005-1.025); Urine Blood NEG (NEG); Urine Ketones NEG (NEG); Urine Protein NEG (NEG-TRACE)
[2021-04-10 19:47] LABS: Appearance Urine CLEAR; Color Urine YELLOW
[2021-04-10 19:48] LABS: MANUAL DIFF FLAG NO
[2021-04-10 19:50] LABS: Basophils Percent Auto 0.4 % (0-2); Eosinophils Absolute Auto 0.2 X10*3/uL (0.0-0.4); Hematocrit 37.8 % (42-52); Hemoglobin 12.2 g/dl (14.0-18.0); Imm Gran Abs Auto 0.04 X10*3/uL (0.00-0.03); Imm Gran Pct Auto 0.4 % (0.0-0.4); Lymphocytes Absolute Auto 1.9 X10*3/uL (1.2-4.9); Lymphocytes Percent Auto 18.6 % (20-40); Mean Corpuscular HGB Conc 32.3 g/dl (31.0-36.0); Mean Corpuscular Hemoglobin 24.4 pg (27.0-33.0); Mean Corpuscular Volume 75.8 fL (80-98); Mean Platelet Volume 9.4 fL (9.4-12.4); Monocytes Absolute Auto 0.6 X10*3/uL (0.1-1.2); Monocytes Percent Auto 6.3 % (2-11); Neutrophils Absolute Auto 7.3 X10*3/uL (2.0-8.3); Neutrophils Percent Auto 72.3 % (45-73); Platelet Count 295 X10*3/uL (160-400); Red Blood Count 4.99 X10*6/uL (4.60-5.80); Red Cell Distribution Width 13.8 % (11.0-16.0); White Blood Count 10.2 X10*3/uL (4.8-10.8)
[2021-04-10 19:52] LABS: Bacteria Urine TRACE /LPF; RBC Urine 0 /HPF (0); WBC Urine 0 /HPF (0-4)
[2021-04-10 19:55] LABS: Amphetamine Screen Urine Not Detected (Not Detect); Barbiturates, Urine Not Detected (Not Detect); Benzodiazepines Screen Urine Not Detected (Not Detect); Cannabinoid Screen Urine Not Detected (Not Detect); Cocaine Screen Urine Not Detected (Not Detect); Opiate Screen Urine Not Detected (Not Detect); Phencyclidine Screen Urine Not Detected (Not Detect)
[2021-04-10 20:16] LABS: Anion Gap 12 (12-20); Blood Urea Nitrogen 12 mg/dL (9-16); Calcium 9.5 mg/dL (8.4-10.2); Carbon Dioxide 27 mmol/L (22-29); Chloride 106 mmol/L (96-108); Estimated Glomerular Filt Rate > 60; Glucose Random 97 mg/dL (60-115); Sodium 141 mmol/L (135-145)
[2021-04-10 20:18] LABS: Lithium < 0.10 mmol/L (0.60-1.20)
--- NOTE | 2021-04-10 20:52 | PHA.MEDREC ---
Pharmacy Consult ? Medication Reconciliation Pharmacy has completed the medication reconciliation. Patient reports has not taking any medication, since September he believes. Today he has a Man level of <0.1 which decreased from 0.4 on 02/12/21 therefore it is possible he recently stopped taking his medication. Patient did get blood work to examine ANC for clozapine on 04/08/2021 and 03/11/2021 which was reported to [facility]. Patient was on a medication for GERD however he reports that he prefers to either throw up or not eat anything than take his omeprazole. I will have the morning pharmacist follow-up with [facility] to see if any medication were picked up recently since there is no available claim history. Zluma Toney, RaymundoD
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
[2021-04-11] MEDS: LORazepam 1 MG TABLET 2 MG PO (00:15)
[2021-04-11] MEDS: diphenhydrAMINE HCL 25 MG TABLET 50 MG PO (00:15)
[2021-04-11] MEDS: HaloperidoL 5 MG TABLET 10 MG PO (00:15)
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
--- NOTE | 2021-04-11 01:16 | MHC.CARE ---
Pt is much more calm and N is currently in room evaluating pt.
[2021-04-11 02:01] VITALS: BP 143/91; PULSE 88; RESP 19; TEMP 36.4; O2SAT 96
--- NOTE | 2021-04-11 06:10 | PC.NURSE ---
Patient appears sleeping since 214, patient had episode of behavioral outburst, agreed to take meds, appropriate behavior s/p medication, patient interacted appropriate with provider and [facility] clinician, disposition is section 12 inpatient bed search, pharmacy to f/u with med rec, psych consult ordered for medication review, patient has been off his medication for weeks, Labs result unremarkable, no distress observed/reported, VSS, will continue to monitor.
--- NOTE | 2021-04-11 07:03 | PC.NURSE ---
patient appears to remain asleep at present with even unlabored breaths, patient appears in no distress
[2021-04-11] MEDS: Sertraline HCL 25 MG TABLET PO (11:16)
[2021-04-11] MEDS: OLANZapine 5 MG TABLET PO (11:17)
--- NOTE | 2021-04-11 19:11 | PC.NURSE ---
Patient is in his bed appears sleeping, no distress observed/reported, ate supper 100%, re-ordered psych consult, called [facility] and spoke with Tamar, per Tamar Trujillo ordered to increase Clozarol 25 mg every 24 hours until it reaches patient's therapeutic dose which 200 mg at bedtime, will continue to monitor.
[2021-04-11] MEDS: traZODone HCL 100 MG TABLET PO (20:45)
[2021-04-11] MEDS: Lithium Carbonate ER 450 MG TABLET.ER PO (20:45)
[2021-04-11] MEDS: cloZAPine 25 MG TABLET PO (20:45)
[2021-04-11] MEDS: lamoTRIgine 25 MG TABLET PO (20:45)
[2021-04-11 23:53] VITALS: BP 156/68; PULSE 78; RESP 20; TEMP 36.8; O2SAT 97
--- NOTE | 2021-04-12 07:01 | PC.NURSE ---
Patient slept through the night, no distress observed/reported, medication compliant, behavior appropriate, appetite good, hydrating well, elimination intact, VSS, will continue to monitor.
--- NOTE | 2021-04-12 07:49 | PC.NURSE ---
patient appears to remain at rest at present, appears in no distress, respirations are even and unlabored
[2021-04-12] MEDS: lamoTRIgine 25 MG TABLET PO ×2 (10:14→20:09)
[2021-04-12] MEDS: OLANZapine 5 MG TABLET PO (10:14)
[2021-04-12] MEDS: Sertraline HCL 25 MG TABLET PO (10:15)
[2021-04-12 16:53] VITALS: BP 147/74; PULSE 81; RESP 18; TEMP 36.7; O2SAT 97
[2021-04-12] MEDS: cloZAPine 25 MG TABLET 50 MG PO (20:08)
[2021-04-12] MEDS: Lithium Carbonate ER 450 MG TABLET.ER PO (20:08)
[2021-04-12] MEDS: traZODone HCL 100 MG TABLET PO (20:08)
--- NOTE | 2021-04-12 20:40 | PC.NURSE ---
Patient is visible on the unit, good interaction with staff member, mood calm and pleasant, no distress observed/reported, compliant with his HS PO medication, patient received Clozarol 50 mg today per Maryam Olmstead, Clozarol dose will be titrated to 25 mg every 24 hours, patient is coherent, alert and oriented x4, VSS, ate 100% supper, expressing need well, will continue to monitor.
[2021-04-13 01:36] VITALS: BP 121/77; PULSE 78; RESP 18; TEMP 36.8; O2SAT 95
--- NOTE | 2021-04-13 05:55 | PC.NURSE ---
Patient slept through the night, no distress observed/reported, VSS, medication compliant, behavior appropriate, disposition is section 12 inpatient bed search, appetite good, will continue to monitor.
--- NOTE | 2021-04-13 07:17 | PC.NURSE ---
patient appears to remain at rest at present patient appears in no distress, respirations are even and unlabored
--- NOTE | 2021-04-13 09:33 | ECG_ITS ---
Test Reason : MEDICAL CLEARANCE Blood Pressure : / mmHG Vent. Rate : 055 BPM Atrial Rate : 055 BPM P-R Int : 154 ms QRS Dur : 122 ms QT Int : 454 ms P-R-T Axes : 050 028 033 degrees QTc Int : 434 ms Sinus bradycardia Non-specific intra-ventricular conduction delay Nonspecific T wave abnormality Abnormal ECG When compared with ECG of 08-SEP-2020 13:25, Vent. rate has decreased BY 28 BPM Referred By: Krissy Sprague Electronically Signed By:Rolando Baron
[2021-04-13] MEDS: OLANZapine 5 MG TABLET PO (09:49)
[2021-04-13] MEDS: lamoTRIgine 25 MG TABLET PO (09:49)
[2021-04-13] MEDS: Sertraline HCL 25 MG TABLET PO (09:49)
[2021-04-13 09:50] VITALS: BP 140/70; PULSE 66; RESP 18; O2SAT 97
--- NOTE | 2021-04-13 13:25 | PC.NURSE ---
Report given to MARIA D Hagan on [facility]
[2021-04-13 15:20] VITALS: RESP 15
[2021-04-13 18:00] VITALS: BP 140/72; PULSE 91; TEMP 36
[2021-04-13] MEDS: Lithium Carbonate ER 450 MG TABLET.ER PO (21:30)
[2021-04-13] MEDS: cloZAPine 25 MG TABLET 50 MG PO (21:30)
[2021-04-13] MEDS: traZODone HCL 100 MG TABLET PO (21:30)
[2021-04-13] MEDS: Magnesium Hydrox/Alum Hydrox 30 ML ORAL.SUSP PO (23:21)
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
[2021-04-14 06:00] VITALS: BP 149/83; PULSE 73; RESP 18; TEMP 35.9; O2SAT 97
[2021-04-14 07:48] LABS: Cholesterol 137 mg/dL; Estimated Average Glucose 111 mg/dL; HDL Cholesterol 22 mg/dL; Hemoglobin A1c % 5.5 %; LDL Cholesterol Calculated 73 mg/dl; Triglycerides 211 mg/dL
[2021-04-14] MEDS: OLANZapine 5 MG TABLET PO (09:21)
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
[2021-04-14] MEDS: Magnesium Hydrox/Alum Hydrox 30 ML ORAL.SUSP PO (13:17)
[2021-04-14] MEDS: Acetaminophen 325 MG TABLET 650 MG PO (13:23)
[2021-04-14] MEDS: Aspirin 325 MG TABLET PO (17:33)
[2021-04-14] MEDS: Omeprazole 20 MG CAPSULE.DR PO (17:33)
[2021-04-14 19:22] VITALS: BP 138/70; PULSE 84; TEMP 36.9; O2SAT 97
[2021-04-14 22:02] VITALS: BP 137/63; PULSE 58
[2021-04-14] MEDS: cloZAPine 100 MG TABLET PO (22:38)
[2021-04-14] MEDS: Lithium Carbonate ER 300 MG TABLET.ER PO (22:38)
[2021-04-14] MEDS: Prazosin HCL 1 MG CAPSULE PO (22:39)
[2021-04-14] MEDS: traZODone HCL 100 MG TABLET PO (22:39)
[2021-04-15] MEDS: Omeprazole 20 MG CAPSULE.DR PO (08:56)
[2021-04-15] MEDS: Sertraline HCL 25 MG TABLET PO (08:56)
[2021-04-15] MEDS: OLANZapine 5 MG TABLET PO (08:57)
[2021-04-15 09:09] VITALS: BP 169/75; PULSE 97; RESP 16; TEMP 36.3; O2SAT 98
[2021-04-15 22:33] VITALS: BP 179/95; PULSE 66
[2021-04-15] MEDS: Prazosin HCL 1 MG CAPSULE PO (22:33)
[2021-04-15] MEDS: Lithium Carbonate ER 300 MG TABLET.ER PO (22:33)
[2021-04-15] MEDS: traZODone HCL 100 MG TABLET PO (22:33)
[2021-04-15] MEDS: cloZAPine 100 MG TABLET PO (22:33)
[2021-04-16] MEDS: Omeprazole 20 MG CAPSULE.DR PO (09:08)
[2021-04-16] MEDS: OLANZapine 5 MG TABLET PO (09:08)
[2021-04-16] MEDS: Sertraline HCL 25 MG TABLET PO (09:08)
[2021-04-16 10:46] VITALS: BP 158/78; PULSE 79; RESP 16; TEMP 36.5; O2SAT 97
--- NOTE | 2021-04-16 13:10 | P.PNPSI_ITS ---
Subjective Subjective Date of Service: 04/15/21 Reason For Visit: Acute Psychosis Interim History: pt seen on 04/15 Patient reports that he is feeling much better; he says his mood is ?good? that depression has abated and that SI remains resolved. He says he also slept very well last night with the prazosin which he would like to continue. Patient reports he is tolerating his medications well. He reports that he has feelings stable and safe and would like to go back home and discharge this week if possible but agrees to remain for the weekend if need be. Patient did share frustrations regarding relationship with outpatient psychiatrist whom he does not feel listens to him well and probably will let him stay on the prazosin. Oven Builder discussed this with patient who agreed that perhaps it is his own misperception. However, he remains fixated on feeling marginalized; patient also shared that he feels marginalized by [facility] staff. Pt agrees that this is his general outlook on life and frequently references that it is due to history of trauma. Nevertheless, patient says he is willing to continue with outpatient psychiatrist and agrees that he has been doing well on current medication regimen. He reiterates to commercial real estate underwriter that he would like to go Tuesday if possible and that he can get his labs done as an outpatient, but will stay the weekend if needed. Mental Status Exam Mental Status Exam Narrative: Pt is alert and oriented; behavior is cooperative, a little overly friendly but calm; patient is not in distress; dressed in casual attire with unkempt jewell but adequate hygiene; mood is described as good and affect congruent; eye contact appropriate; Speech is ; normal rate, volume and prosody and not pressured; no psychomotor agitation/retardation present; thought process is organized, and goal directed. Thought content tends to be perseverant on unfair ways he's treated in the community; also on hopeful discharge but otherwise TC pertinent to relevant topics and without any delusional content, paranoid ideations or grandiosity; denies any SI/HI. There is no evidence of perceptual disturbance. ?Patients insight and judgment appear improved, fair. Diagnostics Vital Signs (24Hr): Vital Signs - 24 hr 04/15/21 22:33 04/16/21 10:46 Temperature 97.7 F Pulse Rate 66 79 Respiratory Rate 16 Blood Pressure 179/95 H 158/78 H Pulse Oximetry 97 Body Mass Index 51.6 Labs Results: 04/10/21 19:44 04/10/21 19:44 Medications Medications Current Medications Generic Name Dose Route Start Last Admin Trade Name Brando PRN Reason Stop Dose Admin Acetaminophen 650 mg 04/13/21 17:28 04/14/21 13:23 Acetaminophen 325 Mg Tablet PO 650 mg Q6H PRN Administration Headache/Pain Mild Scale (1-3) Al Hydroxide/Mg Hydroxide 30 ml 04/13/21 17:28 04/14/21 13:17 Magnesium Hydrox/Alum Hydrox 30 Ml Oral.Susp PO 30 ml Q6H PRN Administration Heartburn/Nausea Clozapine 150 mg 04/16/21 21:00 Clozapine 25 Mg Tablet PO BEDTIME YANN Diphenhydramine HCl 50 mg 04/13/21 17:28 Diphenhydramine Hcl 25 Mg Tablet PO Q4H PRN agitation Haloperidol 5 mg 04/13/21 17:28 Haloperidol 5 Mg Tablet PO Q4H PRN agitation Hydroxyzine HCl 25 mg 04/11/21 09:19 Hydroxyzine Hcl 25 Mg Tablet PO DAILY PRN Anxiety [place] Carbonate 300 mg 04/14/21 21:00 04/15/21 22:33 [place] Carbonate Er 300 Mg Tablet.Er PO 300 mg BEDTIME YANN Administration Lorazepam 2 mg 04/13/21 17:28 Lorazepam 1 Mg Tablet PO Q4H PRN agitation Magnesium Hydroxide 30 ml 04/13/21 17:28 Milk Of Magnesia 30 Ml Oral.Susp PO DAILY PRN Constipation Nicotine 21 mg 04/13/21 17:28 Nicotine 21 Mg Patch.Td24 TRANSDERMA DAILY PRN smoking cessation Nicotine Polacrilex 4 mg 04/13/21 17:28 Nicotine Polacrilex Lozenge 4 Mg Lozenge BUCCAL Q2H PRN Nicotine Cravings Olanzapine 5 mg 04/11/21 10:00 04/16/21 09:08 Olanzapine 5 Mg Tablet PO 5 mg DAILY YANN Administration Olanzapine 5 mg 04/11/21 09:47 Olanzapine 5 Mg Tablet PO DAILY PRN Psychosis/anxiety/agitation Omeprazole 20 mg 04/14/21 16:45 04/16/21 09:08 Omeprazole 20 Mg Capsule. PO 20 mg DAILY@0630 YANN Administration Prazosin HCl 1 mg 04/14/21 21:00 04/15/21 22:33 Prazosin Hcl 1 Mg Capsule PO 1 mg BEDTIME YANN Administration Protocol Sertraline HCl 25 mg 04/15/21 09:00 04/16/21 09:08 Sertraline Hcl 25 Mg Tablet PO 25 mg DAILY YANN Administration Trazodone HCl 100 mg 04/11/21 21:00 04/15/21 22:33 Trazodone Hcl 100 Mg Tablet PO 100 mg BEDTIME YANN Administration Allergies Allergies Allergy/AdvReac Type Severity Reaction Status Date / Time No Known Allergies Allergy Unverified 05/29/20 16:16 [No Known Allergies*] Assessment & Plan Assessment & Plan (1) Schizoaffective disorder, bipolar type: Status: Acute Code(s): F25.0 - Schizoaffective disorder, bipolar type Assessment and Plan: IMPRESSION: 35 yo male, with a history of schizoaffective disorder, bipolar type, ptsd, multiple inpatient admissions, [facility] affiliated who presents for depression and SI in context of going off meds and argument with a friend. Patient reports that his SI has fully resolved and his mood is better. He has been off his meds or least not taking them consistently and would like them to be restarted as he agrees they have helped him achieve his highest level of independence. Admitted for safety, med management Patient seems to be stabilizing has home medications are titrated; denies SI or HI. Says depression resolved. Will discuss case with [facility] workers and get collateral PLAN: Patient on CV Q 15 minutes checks Titrate Clozapine to home dose 200 mg q.h.s. WBC WNL [place] Lithobid ER 300 mg q.h.s.; Switch lithium to Lithobid from Eskalith since patient complains of dry mouth on Eskalith Continue prazosin 1 mg for nightmares which patient finds effective Continue Zoloft 25 mg for PTSD/depression (which was started a few weeks ago at respite for depression); will not likely titrate until patient back on therapeutic doses of mood stabilizers Discontinued Lamictal since patient has history of taking medications on/off and being inconsistent which makes Lamictal a less favorable choice; discussed with patient who agrees -patient asks for omeprazole for chronic GERD, saying he has been on this in the past Headache resolved Greater than 50% of the session was spent on counseling and/or coordination of care Reason for contiued inpatient stay Substantial Risk for: other
[2021-04-16 14:30] VITALS: BMI 52.7
[2021-04-16 16:10] VITALS: BP 156/72; PULSE 96; TEMP 36.1
--- NOTE | 2021-04-16 16:33 | HO.PSYCHPN ---
Subjective Subjective Date of Service: 04/16/21 Reason For Visit: Acute Psychosis Interim History: Patient reports he is in a good mood. He said that he had a moment last night where he felt triggered and upset with himself (though not entirely sure of the trigger) and had passing suicidal thoughts; however he said it was only passive, did not last long and is now fully resolved; he said he had no plans or intention of self-harm. Patient explained that such thoughts are chronic, that they to come and go on their own and that he would call for help if he felt unsafe. Patient continues to report good sleep, resolution of bad dreams, that he is eating well and feels in a good mood. He is very appreciative that prazosin was started and says he is tolerating his medications well. He continues to ask for discharge on Tuesday, saying that he feels stable and would like to get back to his ?life. ?However he also says that if it is necessary, he will stay until early next week. No other complaints or requests. Mental Status Exam Mental Status Exam Narrative: Pt is alert and oriented; behavior is cooperative, a little overly friendly but calm, not inappropriate; patient is not in distress; dressed in casual attire with unkempt jewell but adequate hygiene; mood is described as good and affect congruent; eye contact appropriate; Speech is normal rate, volume and prosody and not pressured; no psychomotor agitation/retardation present; thought process is organized, and goal directed. Thought content continues to drift into chronic idea that others in his life don't care all that much about him; otherwise TC pertinent to relevant topics and without any delusional content, paranoid ideations or grandiosity; denies any SI/HI. There is no evidence of perceptual disturbance. ?Patients insight and judgment appear improved, intact. Diagnostics Vital Signs (24Hr): Vital Signs - 24 hr 04/15/21 22:33 04/16/21 10:46 04/16/21 16:10 Temperature 97.7 F 97.0 F Pulse Rate 66 79 96 Respiratory Rate 16 Blood Pressure 179/95 H 158/78 H 156/72 H Pulse Oximetry 97 Body Mass Index 52.7 Labs Results: 04/10/21 19:44 04/10/21 19:44 Medications Medications Current Medications Generic Name Dose Route Start Last Admin Trade Name Freq PRN Reason Stop Dose Admin Acetaminophen 650 mg 04/13/21 17:28 04/14/21 13:23 Acetaminophen 325 Mg Tablet PO 650 mg Q6H PRN Administration Headache/Pain Mild Scale (1-3) Al Hydroxide/Mg Hydroxide 30 ml 04/13/21 17:28 04/14/21 13:17 Magnesium Hydrox/Alum Hydrox 30 Ml Oral.Susp PO 30 ml Q6H PRN Administration Heartburn/Nausea Clozapine 150 mg 04/16/21 21:00 Clozapine 25 Mg Tablet PO BEDTIME YANN Diphenhydramine HCl 50 mg 04/13/21 17:28 Diphenhydramine Hcl 25 Mg Tablet PO Q4H PRN agitation Haloperidol 5 mg 04/13/21 17:28 Haloperidol 5 Mg Tablet PO Q4H PRN agitation Hydroxyzine HCl 25 mg 04/11/21 09:19 Hydroxyzine Hcl 25 Mg Tablet PO DAILY PRN Anxiety [place] Carbonate 300 mg 04/14/21 21:00 04/15/21 22:33 [place] Carbonate Er 300 Mg Tablet.Er PO 300 mg BEDTIME YANN Administration Lorazepam 2 mg 04/13/21 17:28 Lorazepam 1 Mg Tablet PO Q4H PRN agitation Magnesium Hydroxide 30 ml 04/13/21 17:28 Milk Of Magnesia 30 Ml Oral.Susp PO DAILY PRN Constipation Nicotine 21 mg 04/13/21 17:28 Nicotine 21 Mg Patch.Td24 TRANSDERMA DAILY PRN smoking cessation Nicotine Polacrilex 4 mg 04/13/21 17:28 Nicotine Polacrilex Lozenge 4 Mg Lozenge BUCCAL Q2H PRN Nicotine Cravings Olanzapine 5 mg 04/11/21 10:00 04/16/21 09:08 Olanzapine 5 Mg Tablet PO 5 mg DAILY YANN Administration Olanzapine 5 mg 04/11/21 09:47 Olanzapine 5 Mg Tablet PO DAILY PRN Psychosis/anxiety/agitation Omeprazole 20 mg 04/14/21 16:45 04/16/21 09:08 Omeprazole 20 Mg Capsule.Dr PO 20 mg DAILY@0630 YANN Administration Prazosin HCl 1 mg 04/14/21 21:00 04/15/21 22:33 Prazosin Hcl 1 Mg Capsule PO 1 mg BEDTIME YANN Administration Protocol Sertraline HCl 25 mg 04/15/21 09:00 04/16/21 09:08 Sertraline Hcl 25 Mg Tablet PO 25 mg DAILY YANN Administration Trazodone HCl 100 mg 04/11/21 21:00 04/15/21 22:33 Trazodone Hcl 100 Mg Tablet PO 100 mg BEDTIME YANN Administration Allergies Allergies Allergy/AdvReac Type Severity Reaction Status Date / Time No Known Allergies Allergy Unverified 05/29/20 16:16 [No Known Allergies*] Assessment & Plan Assessment & Plan (1) Schizoaffective disorder, bipolar type: Status: Chronic Code(s): F25.0 - Schizoaffective disorder, bipolar type Assessment and Plan: IMPRESSION: 35 yo male, with a history of schizoaffective disorder, bipolar type, ptsd, multiple inpatient admissions, [facility] affiliated who presents for depression and SI in context of going off meds and argument with a friend. Patient reports that his SI has fully resolved and his mood is better. He has been off his meds or least not taking them consistently and would like them to be restarted as he agrees they have helped him achieve his highest level of independence. Admitted for safety, med management Patient stabilized; home medications are titrated; denies SI or HI. Says depression resolved. dredge worker talked with [facility] workers who agreed patient was stable for discharge though they mentioned that the weekends have less staff available if a need arose. Team discussed further and agreed that as patient lives on his own and does not see staff all that much during the week, nothing much would be different for him, that he is stable, at his baseline and not in imminent risk of harm to self or others. This was also discussed with patient who said he would call N/crisis over the weekend if he felt unsafe and that he was not worried about discharging on a Tuesday. PLAN: Patient on CV Q 15 minutes checks Titrate Clozapine to home dose 200 mg q.h.s. WBC WNL [place] Lithobid ER 300 mg q.h.s.; Switch lithium to Lithobid from Eskalith since patient complains of dry mouth on Eskalith Continue prazosin 1 mg for nightmares which patient finds effective Continue Zoloft 25 mg for PTSD/depression (which was started a few weeks ago at respite for depression); will not likely titrate until patient back on therapeutic doses of mood stabilizers Discontinued Lamictal since patient has history of taking medications on/off and being inconsistent which makes Lamictal a less favorable choice; discussed with patient who agrees -patient asks for omeprazole for chronic GERD, saying he has been on this in the past Headache resolved Greater than 50% of the session was spent on counseling and/or coordination of care Reason for contiued inpatient stay Substantial Risk for: stable for discharge
[2021-04-16] MEDS: Acetaminophen 325 MG TABLET 650 MG PO (16:54)
[2021-04-16] MEDS: cloZAPine 25 MG TABLET 150 MG PO (21:38)
[2021-04-16 21:41] VITALS: BP 165/75; PULSE 67
[2021-04-16] MEDS: traZODone HCL 100 MG TABLET PO (21:41)
[2021-04-16] MEDS: Prazosin HCL 1 MG CAPSULE PO (21:41)
[2021-04-16] MEDS: Lithium Carbonate ER 300 MG TABLET.ER PO (21:41)
[2021-04-17] MEDS: OLANZapine 5 MG TABLET PO (07:42)
[2021-04-17] MEDS: Omeprazole 20 MG CAPSULE.DR PO (07:43)
[2021-04-17] MEDS: Sertraline HCL 25 MG TABLET PO (07:43)
--- NOTE | 2021-04-17 09:31 | P.DS_ITS ---
DS: Providers Provider Date of Service: 04/17/21 Date of admission: 04/13/21 17:15 Primary care physician: Don Martinez MD Attending physician on admission: Markus Garcia Attending physician on discharge: Markus Garcia DS: Diagnosis Discharge Diagnosis (1) Schizoaffective disorder, bipolar type: Status: Chronic (2) Post traumatic stress disorder (PTSD): Status: Chronic DS: Medications Discharge Medications Home Medications: Previous Rx's Medication Instructions Recorded clozapine 200 mg tablet 200 mg PO BEDTIME 30 Days #30 tab 04/16/21 lithium carbonate 300 mg 300 mg PO BEDTIME 30 Days #30 tab 04/16/21 tablet,extended release olanzapine 5 mg tablet 5 mg PO DAILY PRN 30 Days #30 tab 04/16/21 omeprazole 20 mg capsule,delayed 20 mg PO DAILY@0630 30 Days #30 cap 04/16/21 release prazosin 1 mg capsule 1 mg PO BEDTIME 30 Days #30 cap 04/16/21 sertraline 25 mg tablet 25 mg PO DAILY 30 Days #30 tab 04/16/21 trazodone 100 mg tablet 100 mg PO BEDTIME PRN 30 Days #30 04/16/21 tab Mental Status Exam Mental Status Exam Narrative: Pt is alert and oriented; behavior is cooperative, a little overly friendly but calm, not inappropriate; patient is not in distress; dressed in casual attire with unkempt jewell but adequate hygiene; mood is described as good and affect congruent; eye contact appropriate; Speech is normal rate, volume and prosody and not pressured; no psychomotor agitation/retardation pres ent; thought process is organized, and goal directed. Thought content on discharge; otherwise TC pertinent to relevant topics and without any delusional content, paranoid ideations or grandiosity; denies any SI/HI. There is no evidence of perceptual disturbance. ?Patients insight and judgment appear improved, intact. Data Data Completed and Pending Completed studies during hospitalization [Text1]: 04/10/21 04/10/21 04/10/21 19:25 19:25 19:25 WBC RBC Hgb Hct MCV MCH MCHC RDW Plt Count MPV Immature Gran % (Auto) Neut % (Auto) Lymph % (Auto) [place] % (Auto) Eos % (Auto) Baso % (Auto) Lymph # (Auto) [place] # (Auto) Eos # (Auto) Baso # (Auto) Abs Immat Gran (auto) Absolute Neuts (auto) Absolute Nucleated RBC Nucleated RBC % (auto) Sodium Potassium Chloride Carbon Dioxide Anion Gap BUN Creatinine Estim Creat Clear Calc Estimated GFR Random Glucose Estimat Average Glucose Hemoglobin A1c % Calcium Triglycerides Cholesterol LDL Cholesterol, Calc HDL Cholesterol Urine Color YELLOW Urine Appearance CLEAR Urine pH 6.0 Ur Specific [place] >= 1.030 H Urine Protein NEG Urine Glucose (UA) NEG Urine Ketones NEG Urine Blood NEG Urine Nitrite NEG Ur Leukocyte Esterase NEG Urine RBC 0 Urine WBC 0 Ur Squamous Epith Cells NONE Urine Bacteria TRACE Urine Opiates Screen Not Detected Ur Barbiturates Screen Not Detected Ur Phencyclidine Scrn Not Detected Ur Amphetamines Screen Not Detected U Benzodiazepines Scrn Not Detected [place] Urine Cocaine Screen Not Detected U Marijuana (THC) Screen Not Detected COVID-19 ([facility]) Negative COVID-19 Clin Com See Note 04/10/21 04/10/21 04/10/21 19:44 19:44 19:44 WBC 10.2 RBC 4.99 Hgb 12.2 L Hct 37.8 L MCV 75.8 L MCH 24.4 L MCHC 32.3 RDW 13.8 Plt Count 295 MPV 9.4 Immature Gran % (Auto) 0.4 Neut % (Auto) 72.3 Lymph % (Auto) 18.6 L [place] % (Auto) 6.3 Eos % (Auto) 2.0 Baso % (Auto) 0.4 Lymph # (Auto) 1.9 [place] # (Auto) 0.6 Eos # (Auto) 0.2 Baso # (Auto) 0.0 Abs Immat Gran (auto) 0.04 H Absolute Neuts (auto) 7.3 Absolute Nucleated RBC 0.000 Nucleated RBC % (auto) 0.0 Sodium 141 Potassium 4.0 Chloride 106 Carbon Dioxide 27 Anion Gap 12 BUN 12 Creatinine 0.83 Estim Creat Clear Calc 188.0 Estimated GFR > 60 Random Glucose 97 Estimat Average Glucose Hemoglobin A1c % Calcium 9.5 Triglycerides Cholesterol LDL Cholesterol, Calc HDL Cholesterol Urine Color Urine Appearance Urine pH Ur Specific [place] Urine Protein Urine Glucose (UA) Urine Ketones Urine Blood Urine Nitrite Ur Leukocyte Esterase Urine RBC Urine WBC Ur Squamous Epith Cells Urine Bacteria Urine Opiates Screen Ur Barbiturates Screen Ur Phencyclidine Scrn Ur Amphetamines Screen U Benzodiazepines Scrn [place] < 0.10 L Urine Cocaine Screen U Marijuana (THC) Screen COVID-19 ([facility]) COVID-19 Clin Com 04/14/21 04/14/21 07:15 07:15 WBC RBC Hgb Hct MCV MCH MCHC RDW Plt Count MPV Immature Gran % (Auto) Neut % (Auto) Lymph % (Auto) [place] % (Auto) Eos % (Auto) Baso % (Auto) Lymph # (Auto) [place] # (Auto) Eos # (Auto) Baso # (Auto) Abs Immat Gran (auto) Absolute Neuts (auto) Absolute Nucleated RBC Nucleated RBC % (auto) Sodium Potassium Chloride Carbon Dioxide Anion Gap BUN Creatinine Estim Creat Clear Calc Estimated GFR Random Glucose Estimat Average Glucose 111 Hemoglobin A1c % 5.5 Calcium Triglycerides 211 Cholesterol 137 LDL Cholesterol, Calc 73 HDL Cholesterol 22 D Urine Color Urine Appearance Urine pH Ur Specific [place] Urine Protein Urine Glucose (UA) Urine Ketones Urine Blood Urine Nitrite Ur Leukocyte Esterase Urine RBC Urine WBC Ur Squamous Epith Cells Urine Bacteria Urine Opiates Screen Ur Barbiturates Screen Ur Phencyclidine Scrn Ur Amphetamines Screen U Benzodiazepines Scrn [place] Urine Cocaine Screen U Marijuana (THC) Screen COVID-19 ([facility]) COVID-19 Clin Com DS: Summary Hospital Course Hospital Course: Nathen is a 35 yo male, with a history of schizoaffective disorder, bipolar type, ptsd, multiple inpatient admissions, [facility] who presents for depression and SI in context of going off meds and argument with a friend.? Patient signed CV. On admission Patient reports that his SI has fully resolved and his mood is better; denied AVH. He shared that he has no thoughts of harm towards his friend and says he will just apologize and stay away from him from now on. Patient wanted to get back on his home medication regimen, Clozaril and lithium, saying that although he does not always like them or feel they do enough, he agrees that these 2 medications have helped him do significantly better and be a ble to live on his own in the community; Clozaril was titrated to home dose and lithium Eskalith 450 mg was changed to Lithobid 300 mg (since he complained lithium Eskalith cause dry mouth). Nathen discussed some history of trauma and subsequent PTSD symptoms and endorsed flashbacks, nightmares, hypervigilance; he was started on trazodone and bad dreams resolved. Throughout admission, patient was in a good mood, bright affect, and appropriate with staff and peers. He did have a tendency to perseverate on feeling marginalized by the outpatient providers in his life but he agreed that this persective is chronic and stems from his history of childhood trauma. Patient remained in good mood and felt that he was ready to discharge home after a couple days; he said he was willing to remain longer if necessary but hoped for discharge by end of week. Patient continued to deny any suicidal or homicidal ideation during admission and demonstrated appropriate behaviors and impulse control on the unit; he was without any manic symptoms and slept well throughout. Nathen was future oriented saying he wanted to get back to his life, his apartment, to clean up and catch up on playing his video games. Patient tolerated the medications well and denied side effects other than some grogginess from trazodone which he said was tolerable; patient reiterated that these medications have been helpful and that he will remain on them. Team discussed case and agreed that patient was at his baseline, safe and stable for discharge; his [facility] staff also agreed patient appeared at baseline. Given patient's history and intermittent non adherence with medications, it is understood that he remains at risk for possible future decompensation. However, Nathen is not in imminent risk of self-harm or harm of others and does not meet criteria for involuntary commitment; he is currently stable, in a good mood, without SI or HI and returning to his apartment with outpatient providers and staff in place. His request for discharge is honored. Of note, patient discharged prior to getting lithium level and checking CBC; however patient understood the necessity of getting these labs and said that he is capable and willing to get labs checked as an outpatient which he has done in the past; he agrees to follow up with his outpatient providers. This was communicated to his [facility] staff as well. Status at Discharge Cognitive/behavioral status at discharge: intact/appropriate Functional status at discharge: independent ambulation Overall status at discharge: patient is back to baseline Time Spent with Patient Time attestation: Total time spent providing and/or coordinating discharge services: Time spent: Greater than 30 minutes Discharge Plan Discharge Patient Disposition: Home, Self-Care Discharge Diagnosis: Schizoaffective disorder, bipolar type in full remission Referrals: Tam Goldman (psychiatrist) [Other] - 05/13/21 11:20 am (In-person appointment) [facility] [Other] - 04/20/21 (Come for labs any time on Tuesday) Wilner Aviles (therapist) [Other] (Voicemail left requesting appointment, please follow up in a few days if you do not receive a call) Don Martinez MD [Primary Care Provider] - 05/05/21 1:30 pm Discharge Medications: New prazosin 1 mg Capsule 1 mg PO BEDTIME 30 Days Qty: 30 RF: 0 lithium carbonate 300 mg Tablet Extended Release 300 mg PO BEDTIME 30 Days Qty: 30 RF: 0 sertraline 25 mg Tablet 25 mg PO DAILY 30 Days Qty: 30 RF: 0 omeprazole 20 mg Capsule,Delayed Release(Dr/Ec) 20 mg PO DAILY@629 30 Days Qty: 30 RF: 0 Continued olanzapine 5 mg Tablet 5 mg PO DAILY PRN (Reason: Psychosis/anxiety/agitation) 30 Days Qty: 30 RF: 0 trazodone 100 mg tablet 100 mg PO BEDTIME PRN (Reason: insomnia) 30 Days Qty: 30 RF: 0 clozapine 200 mg tablet 200 mg PO BEDTIME 30 Days Qty: 30 RF: 0 Discontinued lithium carbonate 450 mg Tablet Extended Release 450 mg PO BEDTIME Qty: 30 RF: 0 lamotrigine 25 mg Tablet 25 mg PO BID Qty: 60 RF: 0 hydroxyzine HCl 25 mg Tablet 25 mg PO BEDTIME PRN (Reason: Anxiety) Qty: 30 RF: 0 Discharge Orders: Discharge Order (Routine); Ordered 04/17/21 Ordered By: Markus Garcia Diet: regular diet Activity on Discharge: As tolerated Stand Alone Forms: Patient Portal Discharge page, Community Support Other Ambulatory Orders: Blood Urea Nitrogen (Routine) Timeframe: 3 Days Facility: [facility] - Location: Laboratory Ordered By: Markus Garcia Complete Blood Count Man Dif (Routine) Timeframe: 3 Days Facility: [facility] - Location: Laboratory Ordered By: Markus Garcia Creatine Kinase Total (Routine) Timeframe: 3 Days Facility: [facility] - Location: Laboratory Ordered By: Markus Garcia [place] (Routine) Timeframe: 3 Days Facility: [facility] - Location: Laboratory Ordered By: Markus Garcia TSH reflex Free T4 (Routine) Timeframe: 3 Days Facility: [facility] - Location: Laboratory Ordered By: Markus Garcia Care Plan Goals: Maintain mood and safe behaviors Take medications as prescribed Practice coping skills Continue with outpatient providers and reach out to them as needed ? Health Concerns: Mood instability and behaviors Plan of Treatment: Follow up with your psychiatric provider regarding above concerns Take medications as prescribed Assessment: Risk assessment at time of discharge:? Patient was interviewed prior to discharge and found to be fully oriented and without any SI or HI. Patient has insight and demonstrates good judgment in terms of wanting to pursue treatment. Patient is not in imminent risk of harm to self or others and has a safety plan that includes presenting to the closest ER or calling 911 if feeling unsafe.? Patient has been observed closely by nursing and unit staff throughout admission; patient has not engaged in any behaviors that suggest dangerousness to self or others and has demonstrated appropriate behaviors and impulse control.
== END 2021-04-17 10:20 | disposition home or self-care (01) | DRG 885 ==
LOC: HO.ED 21:36 → HO.PM5 04-13 17:22
PROVIDERS: Emergency Medicine Emergency Medical Services; Admitting Provider Psychiatry & Neurology Psychiatry; Emergency Provider Student in an Organized Health Care Education/Training Program; PCP Internal Medicine; Visit Provider Psychiatry & Neurology Psychiatry
DX: F25.0 Schizoaffective disorder, bipolar type (principal); R45.851 Suicidal ideations; F43.10 Post-traumatic stress disorder, unspecified; Z20.822 Contact with and (suspected) exposure to COVID-19; Z91.14 Patient's other noncompliance with medication regimen; F17.210 Nicotine dependence, cigarettes, uncomplicated; Z71.6 Tobacco abuse counseling; Z79.899 Other long term (current) drug therapy
CPT/HCPCS: 36415; 80048; 80061; 80178; 80307; 81001; 83036; 85025; 87635; 93005; 99285; Q0163

== ENCOUNTER 2021-04-20 12:29 | Outpatient (REF) | payer MEDICARE, MEDICAID, SELFPAY ==
[2021-04-20 13:22] LABS: Baso%MD 0.6 %; Eos%MD 2.9 %; Hematocrit 39.8 % (42-52); Hemoglobin 12.6 g/dl (14.0-18.0); IG%MD 0.5 %; Lymph%MD 27.3 %; Mean Corpuscular HGB Conc 31.7 g/dl (31.0-36.0); Mean Corpuscular Hemoglobin 24.4 pg (27.0-33.0); Mean Platelet Volume 9.7 fL (9.4-12.4); Mono%MD 7.6 %; Neut%MD 61.1 %; Platelet Count 262 X10*3/uL (160-400); Red Blood Count 5.17 X10*6/uL (4.60-5.80); Red Cell Distribution Width 13.7 % (11.0-16.0); White Blood Count 8.3 X10*3/uL (4.8-10.8)
[2021-04-20 13:51] LABS: Lithium 0.14 mmol/L (0.60-1.20)
[2021-04-20 13:53] LABS: Blood Urea Nitrogen 8 mg/dL (9-16); Eosinophils Absolute Manual 0.2 X10*3/UL (0.0-0.8); Eosinophils Percent Manual 2 % (0-4); Lymphocytes Absolute Manual 2.2 X10*3/uL (0.6-4.8); Lymphocytes Percent Manual 27 % (20-40); Monocytes Absolute Manual 0.6 X10*3/uL (0.0-1.2); Monocytes Percent Manual 7 % (2-11); Neutrophils Percent Manual 64 % (45-73)
[2021-04-20 13:54] LABS: Platelet Estimate NORMAL (NORMAL); Platelet Morphology Comment NORMAL; RBC Morphology NORMAL
[2021-04-20 13:55] LABS: Band Neutrophils Percent 0 % (3-5); Neutrophils Absolute Manual 5.3 X10*3/uL (2.2-7.9)
[2021-04-20 14:15] LABS: TSH reflex Free T4 0.94 uIU/mL (0.32-4.0)
== END 2021-04-20 12:30 | disposition home or self-care (01) ==
LOC: HO.10HDL 12:29
PROVIDERS: Visit Provider Psychiatry & Neurology Psychiatry
DX: Z51.81 Encounter for therapeutic drug level monitoring (principal); Z79.899 Other long term (current) drug therapy
CPT/HCPCS: 36415; 80178; 82550; 84443; 84520; 85007; 85027

== ENCOUNTER 2021-05-05 12:54 | Outpatient (REF) | payer MEDICARE, MEDICAID, SELFPAY ==
[2021-05-05 13:11] LABS: MANUAL DIFF FLAG NO
[2021-05-05 13:15] LABS: Basophils Absolute Auto 0.1 X10*3/uL (0.0-0.2); Basophils Percent Auto 0.4 % (0-2); Eosinophils Absolute Auto 0.3 X10*3/uL (0.0-0.4); Eosinophils Percent Auto 2.3 % (0-4); Hematocrit 41.1 % (42-52); Hemoglobin 12.9 g/dl (14.0-18.0); Imm Gran Pct Auto 0.7 % (0.0-0.4); Lymphocytes Absolute Auto 2.8 X10*3/uL (1.2-4.9); Lymphocytes Percent Auto 20.3 % (20-40); Mean Corpuscular HGB Conc 31.4 g/dl (31.0-36.0); Mean Corpuscular Volume 76.4 fL (80-98); Mean Platelet Volume 8.9 fL (9.4-12.4); Monocytes Percent Auto 7.4 % (2-11); Neutrophils Absolute Auto 9.4 X10*3/uL (2.0-8.3); Neutrophils Percent Auto 68.9 % (45-73); Platelet Count 307 X10*3/uL (160-400); Red Blood Count 5.38 X10*6/uL (4.60-5.80); White Blood Count 13.6 X10*3/uL (4.8-10.8)
== END 2021-05-05 12:55 | disposition home or self-care (01) ==
LOC: HO.10HDL 12:54
PROVIDERS: Visit Provider Clinical Nurse Specialist Psychiatric/Mental Health, Adult
DX: Z79.899 Other long term (current) drug therapy (principal)
CPT/HCPCS: 36415; 85025

== ENCOUNTER 2021-06-04 11:42 | Outpatient (REF) | payer MEDICARE, MEDICAID, SELFPAY ==
[2021-06-04 14:17] LABS: MANUAL DIFF FLAG NO
[2021-06-04 14:23] LABS: Basophils Absolute Auto 0.1 X10*3/uL (0.0-0.2); Basophils Percent Auto 0.7 % (0-2); Eosinophils Absolute Auto 0.3 X10*3/uL (0.0-0.4); Eosinophils Percent Auto 3.4 % (0-4); Hematocrit 39.5 % (42-52); Hemoglobin 12.2 g/dl (14.0-18.0); Imm Gran Abs Auto 0.07 X10*3/uL (0.00-0.03); Imm Gran Pct Auto 0.7 % (0.0-0.4); Lymphocytes Absolute Auto 2.5 X10*3/uL (1.2-4.9); Lymphocytes Percent Auto 24.9 % (20-40); Mean Corpuscular HGB Conc 30.9 g/dl (31.0-36.0); Mean Corpuscular Hemoglobin 23.8 pg (27.0-33.0); Mean Corpuscular Volume 77.1 fL (80-98); Mean Platelet Volume 9.6 fL (9.4-12.4); Monocytes Absolute Auto 0.7 X10*3/uL (0.1-1.2); Monocytes Percent Auto 7.3 % (2-11); Neutrophils Absolute Auto 6.3 X10*3/uL (2.0-8.3); Platelet Count 320 X10*3/uL (160-400); Red Blood Count 5.12 X10*6/uL (4.60-5.80); Red Cell Distribution Width 13.7 % (11.0-16.0); White Blood Count 9.9 X10*3/uL (4.8-10.8)
== END 2021-06-04 11:43 | disposition home or self-care (01) ==
LOC: HO.10HDL 11:42
PROVIDERS: Visit Provider Clinical Nurse Specialist Psychiatric/Mental Health, Adult
DX: Z79.899 Other long term (current) drug therapy (principal)
CPT/HCPCS: 36415; 85025

== ENCOUNTER 2021-07-03 11:27 | Outpatient (REF) | payer MEDICARE, MEDICAID, SELFPAY ==
[2021-07-03 13:43] LABS: Basophils Absolute Auto 0.1 X10*3/uL (0.0-0.2); Basophils Percent Auto 0.6 % (0-2); Eosinophils Absolute Auto 0.3 X10*3/uL (0.0-0.4); Eosinophils Percent Auto 2.5 % (0-4); Hemoglobin 12.5 g/dl (14.0-18.0); Imm Gran Abs Auto 0.08 X10*3/uL (0.00-0.03); Imm Gran Pct Auto 0.8 % (0.0-0.4); Lymphocytes Absolute Auto 2.4 X10*3/uL (1.2-4.9); Lymphocytes Percent Auto 23.1 % (20-40); MANUAL DIFF FLAG NO; Mean Corpuscular HGB Conc 31.3 g/dl (31.0-36.0); Mean Corpuscular Hemoglobin 24.1 pg (27.0-33.0); Mean Corpuscular Volume 77.1 fL (80-98); Mean Platelet Volume 9.1 fL (9.4-12.4); Monocytes Absolute Auto 0.7 X10*3/uL (0.1-1.2); Monocytes Percent Auto 6.4 % (2-11); Neutrophils Absolute Auto 6.9 X10*3/uL (2.0-8.3); Neutrophils Percent Auto 66.6 % (45-73); Platelet Count 311 X10*3/uL (160-400); Red Blood Count 5.19 X10*6/uL (4.60-5.80); White Blood Count 10.4 X10*3/uL (4.8-10.8)
== END 2021-07-03 11:28 | disposition home or self-care (01) ==
LOC: HO.10HDL 11:27
PROVIDERS: Visit Provider Clinical Nurse Specialist Psychiatric/Mental Health, Adult
DX: Z79.899 Other long term (current) drug therapy (principal)
CPT/HCPCS: 36415; 85025

== ENCOUNTER 2021-07-30 12:22 | Outpatient (REF) | payer MEDICARE, MEDICAID, SELFPAY ==
[2021-07-30 13:45] LABS: MANUAL DIFF FLAG NO
[2021-07-30 14:03] LABS: Basophils Absolute Auto 0.1 X10*3/uL (0.0-0.2); Basophils Percent Auto 0.8 % (0-2); Eosinophils Absolute Auto 0.3 X10*3/uL (0.0-0.4); Eosinophils Percent Auto 3.3 % (0-4); Hematocrit 38.7 % (42.0-52.0); Hemoglobin 12.1 g/dl (14.0-18.0); Imm Gran Abs Auto 0.09 X10*3/uL (0.00-0.03); Imm Gran Pct Auto 0.9 % (0.0-0.4); Lymphocytes Absolute Auto 2.2 X10*3/uL (1.2-4.9); Lymphocytes Percent Auto 22.5 % (20-40); Mean Corpuscular HGB Conc 31.3 g/dl (31.0-36.0); Mean Corpuscular Hemoglobin 24.2 pg (27.0-33.0); Mean Corpuscular Volume 77.4 fL (80.0-98.0); Mean Platelet Volume 9.5 fL (9.4-12.4); Monocytes Absolute Auto 0.7 X10*3/uL (0.1-1.2); Monocytes Percent Auto 7.2 % (2-11); Neutrophils Absolute Auto 6.4 x10*3/uL (2.0-8.3); Neutrophils Percent Auto 65.3 % (45-73); Platelet Count 326 X10*3/uL (160-400); White Blood Count 9.8 X10*3/uL (4.8-10.8)
== END 2021-07-30 12:23 | disposition home or self-care (01) ==
LOC: HO.10HDL 12:22
PROVIDERS: Visit Provider Clinical Nurse Specialist Psychiatric/Mental Health, Adult
DX: Z79.899 Other long term (current) drug therapy (principal)
CPT/HCPCS: 36415; 85025

== ENCOUNTER 2021-08-18 18:21 | Emergency (ER) | payer MEDICARE, MEDICAID, SELFPAY ==
--- NOTE | ~2021-08-18 | XR_ITS ---
EXAMINATION: XR CHEST CLINICAL INFORMATION: Chills, fever and shortness of breath COMPARISON: 07/19/2018 TECHNIQUE: 2 views of the chest were obtained. FINDINGS: No significant abnormality is noted involving the heart, lungs, mediastinum, bony thorax or soft tissues. A small area of right infrahilar atelectasis is present. Degenerative changes are present in the spine. XR/XR chest 2V IMPRESSION: No acute intrathoracic disease.
[2021-08-18 18:28] VITALS: BP 137/89; PULSE 96; O2SAT 97
--- NOTE | 2021-08-18 18:48 | ED.GENADULT ---
HPI - General Adult General Chief complaint: General Medical Stated complaint: not feeling well Time Seen by Provider: 08/18/21 18:39 Source: patient Mode of arrival: ambulatory Limitations: no limitations History of Present Illness HPI narrative: 36-year-old male w/ history of schizoaffective disorder, bipolar disease, ptsd here with complaints of 1 week of malaise, chills, joint pain and body aches, feeling dizzy with standing at times. initially had diarrhea this is now resolved. Fever, vomiting, abdominal pain, shortness of breath, chest pain or cough. No headache or neck pain or stiffness. No rash. received [employer] vaccine for COVID. Related Data Previous Rx's Medication Instructions Recorded clozapine 200 mg tablet 200 mg PO BEDTIME 30 Days #30 tab 04/16/21 lithium carbonate 300 mg 300 mg PO BEDTIME 30 Days #30 tab 04/16/21 tablet,extended release olanzapine 5 mg tablet 5 mg PO DAILY PRN 30 Days #30 tab 04/16/21 omeprazole 20 mg capsule,delayed 20 mg PO DAILY@0630 30 Days #30 cap 04/16/21 release prazosin 1 mg capsule 1 mg PO BEDTIME 30 Days #30 cap 04/16/21 sertraline 25 mg tablet 25 mg PO DAILY 30 Days #30 tab 04/16/21 trazodone 100 mg tablet 100 mg PO BEDTIME PRN 30 Days #30 04/16/21 tab Allergies Allergy/AdvReac Type Severity Reaction Status Date / Time No Known Allergies Allergy Verified 08/18/21 19:14 [No Known Allergies*] Review of Systems Review of Systems: Yes all other systems are reviewed and are negative Constitutional: Constitutional: Reports no additional constitutional complaints, Denies body ache(s), Reports chills, Denies fever(s), Denies headache(s), Reports malaise and Denies weakness Eyes: Eyes: Reports no additional eye complaints and Denies change in vision ENT: Reports system reviewed and no additional complaints, except as documented, Reports dizziness (only with standing to fast), Denies headache(s), Denies nasal congestion, Denies nasal discharge and Denies neck pain Cardiovascular: Cardiovascular: Reports no additional cardiovascular complaints, Denies chest pain, Denies leg edema and Denies dyspnea Respiratory: Respiratory: Reports no additional respiratory complaints, Denies cough and Denies dyspnea Gastrointestinal: Gastrointestinal: Reports no additional gastrointestinal complaints, Denies abdominal pain, Reports diarrhea (now resolved), Denies nausea and Denies vomiting Genitourinary: Genitourinary: Denies urinary incontinence Musculoskeletal: Musculoskeletal: Reports no additional musculoskeletal complaints, Denies back pain, Reports arthralgias, Denies joint swelling, Denies neck pain, Denies numbness and Denies tingling Integumentary/Breasts: Skin/Breast: Reports system reviewed and no additional complaints, except as docu and Denies rash Neurologic: Reports system reviewed and no additional complaints, except as documented, Denies Abnormal speech present, Reports dizziness (only with standing to fast), Denies headache(s), Denies numbness, Denies tingling and Denies weakness PMFSH Past Medical History Attestation statement: The following information was validated with the patient. Source: old records reviewed and nursing notes reviewed Medical History Depression Noncompliance by refusing intervention or support Post traumatic stress disorder (PTSD) Schizoaffective disorder, bipolar type Social History Social History Household Members: None Housing: Apartment Do you presently have visiting nurse or other home services: No Alcohol intake: current Alcohol intake frequency: holidays/special occasions only Alcohol type: beer Patient Tobacco Use Status: Current someday Tobacco user Tobacco use type: Cigarette Cigarette Packs Per Day: 0 Cigarettes Per Day: 0 Years Smoked: 1 year e-Cigarette/Vaping Use: Never Used Second Hand Smoke Exposure: Yes Use of substances other than those prescribed or required for medical reasons: No Substance Use Type: Marijuana Advance Directives: No Advance Directives Information Provided: No service: No Sexual orientation: Straight/Heterosexual Physical Exam Vital Signs: Vital Signs: Last Vital Signs Temp 98.3 F 08/18/21 19:14 Pulse 81 08/18/21 22:32 Resp 16 08/18/21 22:32 BP 143/68 H 08/18/21 19:14 Pulse Ox 95 08/18/21 22:32 BMI result Body Mass Index 46.6 Const: General: cooperative, healthy appearing, comfortable and no acute distress Orientation/consciousness: patient oriented x3 Limitations: no limitations HENMT: Head: Yes normal to inspection Ears: hearing grossly normal bilaterally and TM's normal bilaterally General nose exam: Normal external nose present Face and sinus: Yes normal facial exam Mouth: Normal oral and palatal mucosa present Throat: Yes posterior oropharynx normal, Yes tonsils normal and Yes uvula midline Eyes: General: appearance normal, both eyes and all related structures Pupils: Equal, round and reactive pupils present Neck: Neck: Yes normal visual inspection, Yes full ROM, Yes no lymphadenopathy and Yes no meningeal signs Chest: Chest palpation & inspection: normal inspection of the chest Resp: Effort & Inspection: normal respiratory effort Auscultation: clear to auscultation bilaterally Cardio: Rate: regular rate Rhythm: regular rhythm Peripheral pulses: Peripheral pulses 2+ throughout GI: Inspection: Yes normal to inspection Palpation (GI): Soft to palpation and nontender Auscultation: normal bowel sounds Back/Spine/Pelvis: Thoracic/Lumbar Spine: thoracic and lumbar spine normal to inspection Skin: General skin exam: no rashes or lesions noted Neuro: General: patient oriented x3, no meningeal signs, no focal motor deficits and normal sensation to monofilament Cranial nerves: Yes Equal, round and reactive pupils present Cognition (Neuro): normal cognition Speech: No Abnormal speech present Gait exam (Neuro): Normal gait present Motor exam (neuro): 5/5 motor strength present throughout Extrem: General: Yes normal to inspection, Yes no pedal edema and Yes no calf tenderness Course Course Course Narrative: 36-year-old male here with complaints of malaise, chills, body aches, joint pain, dizziness with position changes for about 1 week. Initially had diarrhea this is now resolved. No other complaints. Exam is nontoxic. The patient has stable vital signs. Will check COVID screen, chest x-ray, UA and labs 2315- labs show mild leukocytosis with no shift. Additional labs are unremarkable. COVID screen and chest x-ray are negative. UA shows microscopic hematuria with leuks. Spoke to patient. He denies any dysuria or urinary frequency but reports some dark urine noted at home and some intermittent right-sided back pain. Will check Ct A/P. 0020- patient refusing the CT scan. he tells me he feels anxious. I offered anxiety medication for the procedure but he declined this. He is aware he may have a kidney stone or kidney infection causing his symptoms. I cannot rule as out without having a CT scan done. Additionally we do not have ultrasound present this evening to do a renal ultrasound to evaluate the kidneys. Patient will leave AMA. He is welcome to return any time Medical Decision Making Medical Records Medical records reviewed: Yes I reviewed the patient's medical records. Lab Data Lab results reviewed: Yes I reviewed the patient's lab results. Result diagrams: 08/18/21 21:49 08/18/21 21:49 Labs: Lab Results 08/18/21 08/18/21 08/18/21 Range/Units 21:49 21:49 21:49 WBC 11.4 H (4.8-10.8) X10*3/uL RBC 4.91 (4.60-5.80) X10*6/uL Hgb 11.8 L (14.0-18.0) g/dl Hct 37.5 L (42.0-52.0) % MCV 76.4 L (80.0-98.0) fL MCH 24.0 L (27.0-33.0) pg MCHC 31.5 (31.0-36.0) g/dl RDW 13.6 (11.0-16.0) % Plt Count 287 (160-400) X10*3/uL MPV 9.1 L (9.4-12.4) fL Immature Gran % (Auto) 0.5 H (0.0-0.4) % Neut % (Auto) 58.8 (45-73) % Lymph % (Auto) 28.3 (20-40) % [place] % (Auto) 8.4 (2-11) % Eos % (Auto) 3.4 (0-4) % Baso % (Auto) 0.6 (0-2) % Lymph # (Auto) 3.2 (1.2-4.9) X10*3/uL [place] # (Auto) 1.0 (0.1-1.2) X10*3/uL Eos # (Auto) 0.4 (0.0-0.4) X10*3/uL Baso # (Auto) 0.1 (0.0-0.2) X10*3/uL Abs Immat Gran (auto) 0.06 H (0.00-0.03) X10*3/uL Absolute Neuts (auto) 6.7 (2.0-8.3) x10*3/uL Absolute Nucleated RBC 0.000 (0.0-0.012) X10*3/uL Nucleated RBC % (auto) 0.0 (0.0-0.2) /100WBC Sodium 141 (135-145) mmol/L Potassium 3.7 (3.3-5.1) mmol/L Chloride 107 (96-108) mmol/L Carbon Dioxide 24 (22-29) mmol/L Anion Gap 14 (12-20) BUN 6 L (9-16) mg/dL Creatinine 0.81 (0.5-1.4) mg/dL Estim Creat Clear Calc 179.7 Estimated GFR > 60 Random Glucose 88 (60-115) mg/dL Calcium 9.2 (8.4-10.2) mg/dL Total Bilirubin 0.3 (0.0-1.0) mg/dL Direct Bilirubin 0.2 (0.0-0.5) mg/dL AST 14 (5-37) U/L ALT 22 (0-40) U/L Alkaline Phosphatase 102 (39-117) U/L Total Creatine Kinase 62 (38-174) U/L Total Protein 6.3 L (6.5-8.0) g/dL Albumin 4.0 (3.5-5.0) g/dL Urine Color Urine Appearance Urine pH (5.0-8.0) Ur Specific [place] (1.005-1.025) Urine Protein (NEG-TRACE) MG/DL Urine Glucose (UA) (NEG) MG/DL Urine Ketones (NEG) MG/DL Urine Blood (NEG) Urine Nitrite (NEG) Ur Leukocyte Esterase (NEG) Urine RBC (0) /HPF Urine WBC (0-4) /HPF Ur Squamous Epith Cells /LPF Amorphous Sediment /LPF Urine Bacteria /LPF Influenza Type A (PCR) NEGATIVE (Negative) Influenza Type B (PCR) NEGATIVE (Negative) RSV RNA Qual (PCR) NEGATIVE (Negative) SARS-CoV-2 RNA (RT-PCR) NEGATIVE (Negative) 08/18/21 Range/Units 22:25 WBC (4.8-10.8) X10*3/uL RBC (4.60-5.80) X10*6/uL Hgb (14.0-18.0) g/dl Hct (42.0-52.0) % MCV (80.0-98.0) fL MCH (27.0-33.0) pg MCHC (31.0-36.0) g/dl RDW (11.0-16.0) % Plt Count (160-400) X10*3/uL MPV (9.4-12.4) fL Immature Gran % (Auto) (0.0-0.4) % Neut % (Auto) (45-73) % Lymph % (Auto) (20-40) % [place] % (Auto) (2-11) % Eos % (Auto) (0-4) % Baso % (Auto) (0-2) % Lymph # (Auto) (1.2-4.9) X10*3/uL [place] # (Auto) (0.1-1.2) X10*3/uL Eos # (Auto) (0.0-0.4) X10*3/uL Baso # (Auto) (0.0-0.2) X10*3/uL Abs Immat Gran (auto) (0.00-0.03) X10*3/uL Absolute Neuts (auto) (2.0-8.3) x10*3/uL Absolute Nucleated RBC (0.0-0.012) X10*3/uL Nucleated RBC % (auto) (0.0-0.2) /100WBC Sodium (135-145) mmol/L Potassium (3.3-5.1) mmol/L Chloride (96-108) mmol/L Carbon Dioxide (22-29) mmol/L Anion Gap (12-20) BUN (9-16) mg/dL Creatinine (0.5-1.4) mg/dL Estim Creat Clear Calc Estimated GFR Random Glucose (60-115) mg/dL Calcium (8.4-10.2) mg/dL Total Bilirubin (0.0-1.0) mg/dL Direct Bilirubin (0.0-0.5) mg/dL AST (5-37) U/L ALT (0-40) U/L Alkaline Phosphatase (39-117) U/L Total Creatine Kinase (38-174) U/L Total Protein (6.5-8.0) g/dL Albumin (3.5-5.0) g/dL Urine Color BROWN Urine Appearance CLOUDY Urine pH 6.0 (5.0-8.0) Ur Specific [place] 1.025 (1.005-1.025) Urine Protein 1+ H (NEG-TRACE) MG/DL Urine Glucose (UA) NEG (NEG) MG/DL Urine Ketones NEG (NEG) MG/DL Urine Blood 3+ H (NEG) Urine Nitrite NEG (NEG) Ur Leukocyte Esterase TRACE H (NEG) Urine RBC 10-14 H (0) /HPF Urine WBC 1-4 (0-4) /HPF Ur Squamous Epith Cells TRACE /LPF Amorphous Sediment 1+ /LPF Urine Bacteria TRACE /LPF Influenza Type A (PCR) (Negative) Influenza Type B (PCR) (Negative) RSV RNA Qual (PCR) (Negative) SARS-CoV-2 RNA (RT-PCR) (Negative) Imaging Data Chest x-ray: Attestation: I personally reviewed and interpreted this imaging study as follows: Radiologist's impression: [place] [id number] XRay Report Signed Patient: Gamal Pyle MR#: [id number] : 1985 Acct:[id number] Age/Sex: 36 / M ADM Date: 08/18/21 Loc: .ED Attending Dr: Ordering Physician: Milvia Hagan NP Date of Service: 08/18/21 Procedure(s): XR chest 2V Accession Number(s): [id number] cc: Milvia Hagan NP~ EXAMINATION: XR CHEST CLINICAL INFORMATION: Chills, fever and shortness of breath COMPARISON: 07/19/2018 TECHNIQUE: 2 views of the chest were obtained. FINDINGS: No significant abnormality is noted involving the heart, lungs, mediastinum, bony thorax or soft tissues. A small area of right infrahilar atelectasis is present. Degenerative changes are present in the spine. XR/XR chest 2V IMPRESSION: No acute intrathoracic disease. Discharge Plan Discharge Clinical Impression: Acute viral syndrome, Hematuria Patient Disposition: Left Against Medical Advice Instructions: Hematuria (ED), Viral Syndrome (ED), Against Medical Advice (ED) Additional Instructions: Your chest x-ray, COVID screen and lab work are normal. Your urine shows microscopic hematuria. It was recommended that you have a CT scan to rule out a kidney infection or kidney stone but you declined this. You are welcome to return at any time to have this CT scan done. In the meantime increase fluids, rest Take Motrin or Tylenol for pain or fever as needed Prescriptions: No Action prazosin 1 mg Capsule 1 mg PO BEDTIME 30 Days Qty: 30 RF: 0 lithium carbonate 300 mg Tablet Extended Release 300 mg PO BEDTIME 30 Days Qty: 30 RF: 0 sertraline 25 mg Tablet 25 mg PO DAILY 30 Days Qty: 30 RF: 0 omeprazole 20 mg Capsule,Delayed Release(Dr/Ec) 20 mg PO DAILY@0630 30 Days Qty: 30 RF: 0 olanzapine 5 mg Tablet 5 mg PO DAILY PRN (Reason: Psychosis/anxiety/agitation) 30 Days Qty: 30 RF: 0 trazodone 100 mg tablet 100 mg PO BEDTIME PRN (Reason: insomnia) 30 Days Qty: 30 RF: 0 clozapine 200 mg tablet 200 mg PO BEDTIME 30 Days Qty: 30 RF: 0 Referrals: Don Martinez MD [Primary Care Provider] - 2 days Interventions: ED Discharge Assessment Last Done: 08/19/21 01:07 Discharge Date/Time: 08/19/21 01:07
[2021-08-18 19:14] VITALS: BP 143/68; PULSE 88; RESP 18; TEMP 36.8; O2SAT 98; BMI 46.6
[2021-08-18 21:56] LABS: MANUAL DIFF FLAG NO
[2021-08-18 21:57] LABS: Basophils Absolute Auto 0.1 X10*3/uL (0.0-0.2); Basophils Percent Auto 0.6 % (0-2); Eosinophils Absolute Auto 0.4 X10*3/uL (0.0-0.4); Eosinophils Percent Auto 3.4 % (0-4); Hematocrit 37.5 % (42.0-52.0); Hemoglobin 11.8 g/dl (14.0-18.0); Imm Gran Abs Auto 0.06 X10*3/uL (0.00-0.03); Imm Gran Pct Auto 0.5 % (0.0-0.4); Lymphocytes Absolute Auto 3.2 X10*3/uL (1.2-4.9); Lymphocytes Percent Auto 28.3 % (20-40); Mean Corpuscular HGB Conc 31.5 g/dl (31.0-36.0); Mean Corpuscular Volume 76.4 fL (80.0-98.0); Mean Platelet Volume 9.1 fL (9.4-12.4); Monocytes Percent Auto 8.4 % (2-11); Neutrophils Absolute Auto 6.7 x10*3/uL (2.0-8.3); Neutrophils Percent Auto 58.8 % (45-73); Platelet Count 287 X10*3/uL (160-400); Red Blood Count 4.91 X10*6/uL (4.60-5.80); Red Cell Distribution Width 13.6 % (11.0-16.0); White Blood Count 11.4 X10*3/uL (4.8-10.8)
[2021-08-18 22:11] LABS: Alanine Aminotransferase 22 U/L (0-40); Alkaline Phosphatase 102 U/L (39-117); Anion Gap 14 (12-20); Aspartate Amino Transferase 14 U/L (5-37); Bilirubin Direct 0.2 mg/dL (0.0-0.5); Bilirubin Total 0.3 mg/dL (0.0-1.0); Blood Urea Nitrogen 6 mg/dL (9-16); Calcium 9.2 mg/dL (8.4-10.2); Carbon Dioxide 24 mmol/L (22-29); Chloride 107 mmol/L (96-108); Creatinine Clr Calc Pharmacy 179.7; Estimated Glomerular Filt Rate > 60; Glucose Random 88 mg/dL (60-115); Potassium 3.7 mmol/L (3.3-5.1); Sodium 141 mmol/L (135-145); Total Protein 6.3 g/dL (6.5-8.0)
[2021-08-18 22:32] VITALS: PULSE 81; RESP 16; O2SAT 95
[2021-08-18 22:33] LABS: Appearance Urine CLOUDY; Color Urine BROWN; Glucose Urine UA NEG (NEG); Leukocyte Esterase Urine TRACE (NEG); Nitrite Urine NEG (NEG); Specific Gravity - Urine 1.025 (1.005-1.025); UACC Culture Trigger YES; Urine Blood 3+ (NEG); Urine Ketones NEG (NEG); Urine Protein 1+ MG/DL (NEG-TRACE)
[2021-08-18 22:33] LABS: Influenza A PCR NEGATIVE (Negative); Influenza B PCR NEGATIVE (Negative); Resp Syncy Virus RNA Qual PCR NEGATIVE (Negative); SARS COV2 PCR INHOUSE NEGATIVE (Negative)
[2021-08-18 23:07] LABS: Bacteria Urine TRACE /LPF; Squamous Epithelial Cell Urine TRACE /LPF
[2021-08-18 23:09] LABS: Amorphous Sediment Urine 1+ /LPF
== END 2021-08-19 01:07 | disposition left against medical advice (07) ==
PROVIDERS: Nurse Practitioner Family; Emergency Provider Emergency Medicine Emergency Medical Services; PCP Internal Medicine
DX: B34.9 Viral infection, unspecified (principal); R31.9 Hematuria, unspecified; M79.10 Myalgia, unspecified site; R42 Dizziness and giddiness; F17.210 Nicotine dependence, cigarettes, uncomplicated; Z20.822 Contact with and (suspected) exposure to COVID-19; Z71.6 Tobacco abuse counseling; Z79.899 Other long term (current) drug therapy
CPT/HCPCS: 0241U; 36415; 71046; 80048; 80076; 81001; 82550; 85025; 87086; 99283; 99284

== ENCOUNTER 2021-08-26 11:08 | Outpatient (REF) | payer MEDICARE, MEDICAID, SELFPAY ==
[2021-08-26 13:52] LABS: MANUAL DIFF FLAG NO
[2021-08-26 13:55] LABS: Basophils Absolute Auto 0.1 X10*3/uL (0.0-0.2); Basophils Percent Auto 0.6 % (0-2); Eosinophils Absolute Auto 0.2 X10*3/uL (0.0-0.4); Eosinophils Percent Auto 1.6 % (0-4); Hematocrit 38.4 % (42.0-52.0); Imm Gran Abs Auto 0.08 X10*3/uL (0.00-0.03); Imm Gran Pct Auto 0.8 % (0.0-0.4); Lymphocytes Absolute Auto 2.3 X10*3/uL (1.2-4.9); Lymphocytes Percent Auto 21.4 % (20-40); Mean Corpuscular HGB Conc 31.3 g/dl (31.0-36.0); Mean Platelet Volume 9.5 fL (9.4-12.4); Monocytes Absolute Auto 0.7 X10*3/uL (0.1-1.2); Monocytes Percent Auto 6.9 % (2-11); Neutrophils Absolute Auto 7.3 x10*3/uL (2.0-8.3); Neutrophils Percent Auto 68.7 % (45-73); Platelet Count 314 X10*3/uL (160-400); Red Blood Count 4.99 X10*6/uL (4.60-5.80); Red Cell Distribution Width 13.9 % (11.0-16.0); White Blood Count 10.6 X10*3/uL (4.8-10.8)
== END 2021-08-26 11:09 | disposition home or self-care (01) ==
LOC: HO.10HDL 11:08
PROVIDERS: Visit Provider Clinical Nurse Specialist Psychiatric/Mental Health, Adult
DX: Z79.899 Other long term (current) drug therapy (principal)
CPT/HCPCS: 36415; 85025

== ENCOUNTER 2021-09-25 19:44 | Emergency (ER) | payer MEDICARE, MEDICAID, SELFPAY ==
[2021-09-25 19:49] VITALS: BP 185/97; PULSE 88; O2SAT 100
== END 2021-09-25 21:19 | disposition left against medical advice (07) ==
LOC: HO.ED 21:13
PROVIDERS: Emergency Provider Emergency Medicine
DX: R10.9 Unspecified abdominal pain (principal)

== ENCOUNTER 2021-09-30 10:56 | Outpatient (REF) | payer MEDICARE, MEDICAID, SELFPAY ==
[2021-09-30 13:58] LABS: MANUAL DIFF FLAG NO
[2021-09-30 14:01] LABS: Basophils Percent Auto 0.3 % (0-2); Eosinophils Absolute Auto 0.1 X10*3/uL (0.0-0.4); Hematocrit 38.8 % (42.0-52.0); Hemoglobin 11.8 g/dl (14.0-18.0); Imm Gran Abs Auto 0.02 X10*3/uL (0.00-0.03); Imm Gran Pct Auto 0.3 % (0.0-0.4); Lymphocytes Absolute Auto 1.4 X10*3/uL (1.2-4.9); Lymphocytes Percent Auto 23.1 % (20-40); Mean Corpuscular HGB Conc 30.4 g/dl (31.0-36.0); Mean Corpuscular Hemoglobin 23.6 pg (27.0-33.0); Mean Corpuscular Volume 77.8 fL (80.0-98.0); Mean Platelet Volume 9.8 fL (9.4-12.4); Monocytes Absolute Auto 0.7 X10*3/uL (0.1-1.2); Monocytes Percent Auto 11.7 % (2-11); Neutrophils Absolute Auto 3.8 x10*3/uL (2.0-8.3); Neutrophils Percent Auto 63.6 % (45-73); Platelet Count 253 X10*3/uL (160-400); Red Blood Count 4.99 X10*6/uL (4.60-5.80); Red Cell Distribution Width 14.1 % (11.0-16.0)
== END 2021-09-30 10:57 | disposition home or self-care (01) ==
LOC: HO.10HDLR 10:56
PROVIDERS: Visit Provider Clinical Nurse Specialist Psychiatric/Mental Health, Adult
DX: Z79.899 Other long term (current) drug therapy (principal)
CPT/HCPCS: 36415; 85025

== ENCOUNTER 2021-10-30 11:20 | Outpatient (REF) | payer MEDICARE, MEDICAID, SELFPAY ==
[2021-10-30 13:35] LABS: MANUAL DIFF FLAG NO
[2021-10-30 13:41] LABS: Basophils Absolute Auto 0.1 X10*3/uL (0.0-0.2); Basophils Percent Auto 0.5 % (0-2); Eosinophils Absolute Auto 0.4 X10*3/uL (0.0-0.4); Eosinophils Percent Auto 3.5 % (0-4); Hemoglobin 12.1 g/dl (14.0-18.0); Imm Gran Abs Auto 0.17 X10*3/uL (0.00-0.03); Imm Gran Pct Auto 1.7 % (0.0-0.4); Lymphocytes Absolute Auto 2.5 X10*3/uL (1.2-4.9); Lymphocytes Percent Auto 24.4 % (20-40); Mean Corpuscular Hemoglobin 23.8 pg (27.0-33.0); Mean Corpuscular Volume 76.8 fL (80.0-98.0); Mean Platelet Volume 9.3 fL (9.4-12.4); Monocytes Absolute Auto 0.8 X10*3/uL (0.1-1.2); Monocytes Percent Auto 7.9 % (2-11); Neutrophils Absolute Auto 6.4 x10*3/uL (2.0-8.3); Platelet Count 298 X10*3/uL (160-400); Red Blood Count 5.08 X10*6/uL (4.60-5.80); Red Cell Distribution Width 14.2 % (11.0-16.0); White Blood Count 10.2 X10*3/uL (4.8-10.8)
== END 2021-10-30 11:21 | disposition home or self-care (01) ==
LOC: HO.10HDL 11:20
PROVIDERS: Visit Provider Clinical Nurse Specialist Psychiatric/Mental Health, Adult
DX: Z79.899 Other long term (current) drug therapy (principal)
CPT/HCPCS: 36415; 85025

== ENCOUNTER 2021-11-24 11:15 | Outpatient (REF) | payer MEDICARE, MEDICAID, SELFPAY ==
[2021-11-24 11:54] LABS: MANUAL DIFF FLAG NO
[2021-11-24 12:21] LABS: Basophils Absolute Auto 0.1 X10*3/uL (0.0-0.2); Basophils Percent Auto 0.9 % (0-2); Eosinophils Absolute Auto 0.4 X10*3/uL (0.0-0.4); Eosinophils Percent Auto 3.8 % (0-4); Hematocrit 40.1 % (42.0-52.0); Hemoglobin 12.3 g/dl (14.0-18.0); Imm Gran Abs Auto 0.06 X10*3/uL (0.00-0.03); Imm Gran Pct Auto 0.7 % (0.0-0.4); Lymphocytes Absolute Auto 2.5 X10*3/uL (1.2-4.9); Lymphocytes Percent Auto 26.9 % (20-40); Mean Corpuscular HGB Conc 30.7 g/dl (31.0-36.0); Mean Corpuscular Volume 78.3 fL (80.0-98.0); Mean Platelet Volume 9.3 fL (9.4-12.4); Monocytes Absolute Auto 0.7 X10*3/uL (0.1-1.2); Monocytes Percent Auto 7.7 % (2-11); Neutrophils Absolute Auto 5.5 x10*3/uL (2.0-8.3); Platelet Count 288 X10*3/uL (160-400); Red Blood Count 5.12 X10*6/uL (4.60-5.80); Red Cell Distribution Width 14.6 % (11.0-16.0); White Blood Count 9.2 X10*3/uL (4.8-10.8)
== END 2021-11-24 11:16 | disposition home or self-care (01) ==
LOC: HO.LAB 11:15
PROVIDERS: PCP Internal Medicine; Visit Provider Clinical Nurse Specialist Psychiatric/Mental Health, Adult
DX: Z79.899 Other long term (current) drug therapy (principal)
CPT/HCPCS: 36415; 85025

== ENCOUNTER 2021-12-22 13:34 | Outpatient (REF) | payer MEDICARE, MEDICAID, SELFPAY ==
[2021-12-22 13:49] LABS: MANUAL DIFF FLAG NO
[2021-12-22 14:00] LABS: Basophils Absolute Auto 0.1 X10*3/uL (0.0-0.2); Basophils Percent Auto 0.5 % (0-2); Eosinophils Absolute Auto 0.3 X10*3/uL (0.0-0.4); Hematocrit 39.7 % (42.0-52.0); Hemoglobin 12.4 g/dl (14.0-18.0); Imm Gran Abs Auto 0.07 X10*3/uL (0.00-0.03); Imm Gran Pct Auto 0.6 % (0.0-0.4); Lymphocytes Absolute Auto 2.7 X10*3/uL (1.2-4.9); Lymphocytes Percent Auto 25.3 % (20-40); Mean Corpuscular HGB Conc 31.2 g/dl (31.0-36.0); Mean Corpuscular Hemoglobin 23.9 pg (27.0-33.0); Mean Corpuscular Volume 76.6 fL (80.0-98.0); Mean Platelet Volume 9.2 fL (9.4-12.4); Monocytes Absolute Auto 0.8 X10*3/uL (0.1-1.2); Monocytes Percent Auto 7.1 % (2-11); Neutrophils Absolute Auto 6.9 x10*3/uL (2.0-8.3); Neutrophils Percent Auto 63.5 % (45-73); Platelet Count 298 X10*3/uL (160-400); Red Blood Count 5.18 X10*6/uL (4.60-5.80); Red Cell Distribution Width 14.3 % (11.0-16.0); White Blood Count 10.8 X10*3/uL (4.8-10.8)
== END 2021-12-22 13:35 | disposition home or self-care (01) ==
LOC: HO.LABR 13:34
PROVIDERS: PCP Internal Medicine; Visit Provider Clinical Nurse Specialist Psychiatric/Mental Health, Adult
DX: Z79.899 Other long term (current) drug therapy (principal)
CPT/HCPCS: 36415; 85025

== ENCOUNTER 2022-01-19 11:10 | Outpatient (REF) | payer MEDICARE, MEDICAID, SELFPAY ==
[2022-01-19 11:27] LABS: MANUAL DIFF FLAG NO
[2022-01-19 11:35] LABS: Basophils Absolute Auto 0.1 X10*3/uL (0.0-0.2); Basophils Percent Auto 0.7 % (0-2); Eosinophils Absolute Auto 0.3 X10*3/uL (0.0-0.4); Eosinophils Percent Auto 2.8 % (0-4); Hematocrit 38.7 % (42.0-52.0); Hemoglobin 12.2 g/dl (14.0-18.0); Imm Gran Abs Auto 0.06 X10*3/uL (0.00-0.03); Imm Gran Pct Auto 0.6 % (0.0-0.4); Lymphocytes Absolute Auto 2.5 X10*3/uL (1.2-4.9); Lymphocytes Percent Auto 23.7 % (20-40); Mean Corpuscular HGB Conc 31.5 g/dl (31.0-36.0); Mean Corpuscular Hemoglobin 24.2 pg (27.0-33.0); Mean Corpuscular Volume 76.8 fL (80.0-98.0); Mean Platelet Volume 9.3 fL (9.4-12.4); Monocytes Absolute Auto 0.8 X10*3/uL (0.1-1.2); Neutrophils Percent Auto 65.2 % (45-73); Platelet Count 307 X10*3/uL (160-400); Red Blood Count 5.04 X10*6/uL (4.60-5.80); Red Cell Distribution Width 14.2 % (11.0-16.0); White Blood Count 10.7 X10*3/uL (4.8-10.8)
== END 2022-01-19 11:11 | disposition home or self-care (01) ==
LOC: HO.LABR 11:10
PROVIDERS: PCP Internal Medicine; Visit Provider Clinical Nurse Specialist Psychiatric/Mental Health, Adult
DX: Z79.899 Other long term (current) drug therapy (principal)
CPT/HCPCS: 36415; 85025

== ENCOUNTER 2022-02-16 14:53 | Outpatient (REF) | payer MEDICARE, MEDICAID, SELFPAY ==
[2022-02-16 15:08] LABS: MANUAL DIFF FLAG NO
[2022-02-16 15:38] LABS: Basophils Percent Auto 0.4 % (0-2); Eosinophils Absolute Auto 0.3 X10*3/uL (0.0-0.4); Eosinophils Percent Auto 2.8 % (0-4); Hemoglobin 12.4 g/dl (14.0-18.0); Imm Gran Abs Auto 0.06 X10*3/uL (0.00-0.03); Imm Gran Pct Auto 0.6 % (0.0-0.4); Lymphocytes Absolute Auto 2.6 X10*3/uL (1.2-4.9); Lymphocytes Percent Auto 24.6 % (20-40); Mean Corpuscular Hemoglobin 23.9 pg (27.0-33.0); Mean Corpuscular Volume 77.2 fL (80.0-98.0); Mean Platelet Volume 9.3 fL (9.4-12.4); Monocytes Absolute Auto 0.8 X10*3/uL (0.1-1.2); Monocytes Percent Auto 7.6 % (2-11); Neutrophils Absolute Auto 6.7 x10*3/uL (2.0-8.3); Platelet Count 304 X10*3/uL (160-400); Red Blood Count 5.18 X10*6/uL (4.60-5.80); Red Cell Distribution Width 13.9 % (11.0-16.0); White Blood Count 10.5 X10*3/uL (4.8-10.8)
== END 2022-02-16 14:54 | disposition home or self-care (01) ==
LOC: HO.LABR 14:53
PROVIDERS: PCP Internal Medicine; Visit Provider Clinical Nurse Specialist Psychiatric/Mental Health, Adult
DX: Z79.899 Other long term (current) drug therapy (principal)
CPT/HCPCS: 36415; 85025

== ENCOUNTER 2022-03-18 12:36 | Outpatient (REF) | payer MEDICARE, MEDICAID, SELFPAY ==
[2022-03-18 13:28] LABS: MANUAL DIFF FLAG NO
[2022-03-18 13:40] LABS: Basophils Absolute Auto 0.1 X10*3/uL (0.0-0.2); Basophils Percent Auto 0.6 % (0-2); Eosinophils Absolute Auto 0.3 X10*3/uL (0.0-0.4); Eosinophils Percent Auto 3.1 % (0-4); Hemoglobin 12.1 g/dl (14.0-18.0); Imm Gran Abs Auto 0.09 X10*3/uL (0.00-0.03); Imm Gran Pct Auto 0.9 % (0.0-0.4); Lymphocytes Absolute Auto 2.3 X10*3/uL (1.2-4.9); Lymphocytes Percent Auto 22.7 % (20-40); Mean Corpuscular HGB Conc 31.8 g/dl (31.0-36.0); Mean Corpuscular Hemoglobin 24.4 pg (27.0-33.0); Mean Corpuscular Volume 76.6 fL (80.0-98.0); Mean Platelet Volume 9.6 fL (9.4-12.4); Monocytes Absolute Auto 0.8 X10*3/uL (0.1-1.2); Monocytes Percent Auto 7.5 % (2-11); Neutrophils Absolute Auto 6.6 x10*3/uL (2.0-8.3); Neutrophils Percent Auto 65.2 % (45-73); Platelet Count 283 X10*3/uL (160-400); Red Blood Count 4.96 X10*6/uL (4.60-5.80); White Blood Count 10.1 X10*3/uL (4.8-10.8)
[2022-03-18 13:46] LABS: Lithium 0.12 mmol/L (0.60-1.20)
[2022-03-18 13:52] LABS: Anion Gap 11 (12-20); Blood Urea Nitrogen 10 mg/dL (9-16); Calcium 9.3 mg/dL (8.4-10.2); Carbon Dioxide 27 mmol/L (22-29); Chloride 105 mmol/L (96-108); Estimated Glomerular Filt Rate > 60; Glucose Fasting 139 mg/dL (60-99); Sodium 139 mmol/L (135-145)
== END 2022-03-18 12:37 | disposition home or self-care (01) ==
LOC: HO.10HDL 12:36
PROVIDERS: Visit Provider Clinical Nurse Specialist Psychiatric/Mental Health, Adult
DX: Z79.899 Other long term (current) drug therapy (principal)
CPT/HCPCS: 36415; 80048; 80178; 84443; 85025

== ENCOUNTER 2022-04-13 10:10 | Outpatient (REF) | payer MEDICARE, MEDICAID, SELFPAY ==
[2022-04-13 10:50] LABS: Neutrophils Absolute Auto 6.4 x10*3/uL (2.0-8.3)
== END 2022-04-13 10:11 | disposition home or self-care (01) ==
LOC: HO.LABR 10:10
PROVIDERS: PCP Internal Medicine; Visit Provider Clinical Nurse Specialist Psychiatric/Mental Health, Adult
DX: Z79.899 Other long term (current) drug therapy (principal)
CPT/HCPCS: 36415; 85048

== ENCOUNTER 2022-05-13 12:05 | Outpatient (REF) | payer MEDICARE, MEDICAID, SELFPAY ==
[2022-05-13 14:04] LABS: MANUAL DIFF FLAG NO
[2022-05-13 14:14] LABS: Basophils Absolute Auto 0.1 X10*3/uL (0.0-0.2); Basophils Percent Auto 0.8 % (0-2); Eosinophils Absolute Auto 0.2 X10*3/uL (0.0-0.4); Eosinophils Percent Auto 1.7 % (0-4); Hematocrit 40.6 % (42.0-52.0); Hemoglobin 12.8 g/dl (14.0-18.0); Imm Gran Abs Auto 0.05 X10*3/uL (0.00-0.03); Imm Gran Pct Auto 0.5 % (0.0-0.4); Lymphocytes Percent Auto 19.4 % (20-40); Mean Corpuscular HGB Conc 31.5 g/dl (31.0-36.0); Mean Platelet Volume 9.5 fL (9.4-12.4); Monocytes Absolute Auto 0.7 X10*3/uL (0.1-1.2); Monocytes Percent Auto 6.8 % (2-11); Neutrophils Absolute Auto 7.3 x10*3/uL (2.0-8.3); Neutrophils Percent Auto 70.8 % (45-73); Platelet Count 337 X10*3/uL (160-400); Red Blood Count 5.34 X10*6/uL (4.60-5.80); Red Cell Distribution Width 13.8 % (11.0-16.0); White Blood Count 10.3 X10*3/uL (4.8-10.8)
== END 2022-05-13 12:06 | disposition home or self-care (01) ==
LOC: HO.10HDL 12:05
PROVIDERS: Clinical Nurse Specialist Psychiatric/Mental Health, Adult; Visit Provider Internal Medicine
DX: Z79.899 Other long term (current) drug therapy (principal)
CPT/HCPCS: 36415; 85025

== ENCOUNTER 2022-06-08 12:28 | Outpatient (REF) | payer MEDICARE, MEDICAID, SELFPAY ==
[2022-06-08 13:42] LABS: MANUAL DIFF FLAG NO
[2022-06-08 13:49] LABS: Basophils Absolute Auto 0.1 X10*3/uL (0.0-0.2); Basophils Percent Auto 0.6 % (0-2); Eosinophils Absolute Auto 0.3 X10*3/uL (0.0-0.4); Eosinophils Percent Auto 2.2 % (0-4); Hematocrit 39.9 % (42.0-52.0); Hemoglobin 12.7 g/dl (14.0-18.0); Imm Gran Abs Auto 0.08 X10*3/uL (0.00-0.03); Imm Gran Pct Auto 0.6 % (0.0-0.4); Lymphocytes Absolute Auto 2.6 X10*3/uL (1.2-4.9); Lymphocytes Percent Auto 20.6 % (20-40); Mean Corpuscular HGB Conc 31.8 g/dl (31.0-36.0); Mean Corpuscular Hemoglobin 24.2 pg (27.0-33.0); Mean Corpuscular Volume 76.1 fL (80.0-98.0); Mean Platelet Volume 9.4 fL (9.4-12.4); Monocytes Absolute Auto 0.8 X10*3/uL (0.1-1.2); Monocytes Percent Auto 6.7 % (2-11); Neutrophils Absolute Auto 8.7 x10*3/uL (2.0-8.3); Neutrophils Percent Auto 69.3 % (45-73); Platelet Count 335 X10*3/uL (160-400); Red Blood Count 5.24 X10*6/uL (4.60-5.80); Red Cell Distribution Width 13.8 % (11.0-16.0); White Blood Count 12.5 X10*3/uL (4.8-10.8)
== END 2022-06-08 12:29 | disposition home or self-care (01) ==
LOC: HO.10HDL 12:28
PROVIDERS: Visit Provider Clinical Nurse Specialist Psychiatric/Mental Health, Adult
DX: Z79.899 Other long term (current) drug therapy (principal)
CPT/HCPCS: 36415; 85025

== ENCOUNTER 2022-07-08 11:42 | Outpatient (REF) | payer MEDICARE, MEDICAID, SELFPAY ==
[2022-07-08 14:08] LABS: MANUAL DIFF FLAG NO
[2022-07-08 14:19] LABS: Basophils Absolute Auto 0.1 X10*3/uL (0.0-0.2); Basophils Percent Auto 0.7 % (0-2); Eosinophils Absolute Auto 0.3 X10*3/uL (0.0-0.4); Eosinophils Percent Auto 2.4 % (0-4); Hematocrit 40.4 % (42.0-52.0); Hemoglobin 12.5 g/dl (14.0-18.0); Imm Gran Pct Auto 0.8 % (0.0-0.4); Lymphocytes Absolute Auto 2.4 X10*3/uL (1.2-4.9); Mean Corpuscular HGB Conc 30.9 g/dl (31.0-36.0); Mean Corpuscular Hemoglobin 23.7 pg (27.0-33.0); Mean Corpuscular Volume 76.7 fL (80.0-98.0); Mean Platelet Volume 9.3 fL (9.4-12.4); Monocytes Absolute Auto 0.7 X10*3/uL (0.1-1.2); Neutrophils Absolute Auto 8.5 x10*3/uL (2.0-8.3); Neutrophils Percent Auto 70.1 % (45-73); Platelet Count 299 X10*3/uL (160-400); Red Blood Count 5.27 X10*6/uL (4.60-5.80); Red Cell Distribution Width 14.2 % (11.0-16.0); White Blood Count 12.1 X10*3/uL (4.8-10.8)
[2022-07-08 14:26] LABS: Alanine Aminotransferase 23 U/L (0-40); Albumin Level 4.3 g/dL (3.5-5.0); Alkaline Phosphatase 120 U/L (39-117); Anion Gap 15 (12-20); Aspartate Amino Transferase 17 U/L (5-37); Bilirubin Total 0.4 mg/dL (0.0-1.0); Blood Urea Nitrogen 14 mg/dL (9-16); Calcium 9.6 mg/dL (8.4-10.2); Carbon Dioxide 28 mmol/L (22-29); Chloride 102 mmol/L (96-108); Cholesterol 186 mg/dL; Estimated Glomerular Filt Rate > 60; Glucose Fasting 132 mg/dL (60-99); HDL Cholesterol 32 mg/dL; Potassium 4.2 mmol/L (3.3-5.1); Sodium 141 mmol/L (135-145); Triglycerides 441 mg/dL
[2022-07-08 14:37] LABS: Lithium 0.12 mmol/L (0.60-1.20)
[2022-07-08 14:47] LABS: Thyroid Stimulating Hormone 2.12 uIU/mL (0.32-4.0)
== END 2022-07-08 11:43 | disposition home or self-care (01) ==
LOC: HO.10HDLR 11:42
PROVIDERS: Absent Provider Clinical Nurse Specialist Psychiatric/Mental Health, Adult; Visit Provider Internal Medicine
DX: Z00.00 Encounter for general adult medical examination without abnormal findings (principal); Z79.899 Other long term (current) drug therapy
CPT/HCPCS: 36415; 80053; 80061; 80178; 84443; 85025

== ENCOUNTER 2022-08-03 11:39 | Outpatient (REF) | payer MEDICARE, MEDICAID, SELFPAY ==
[2022-08-03 13:32] LABS: MANUAL DIFF FLAG NO
[2022-08-03 13:33] LABS: Basophils Absolute Auto 0.1 X10*3/uL (0.0-0.2); Basophils Percent Auto 0.8 % (0-2); Eosinophils Absolute Auto 0.4 X10*3/uL (0.0-0.4); Eosinophils Percent Auto 2.9 % (0-4); Hematocrit 38.8 % (42.0-52.0); Hemoglobin 12.1 g/dl (14.0-18.0); Imm Gran Abs Auto 0.15 X10*3/uL (0.00-0.03); Imm Gran Pct Auto 1.1 % (0.0-0.4); Lymphocytes Absolute Auto 3.5 X10*3/uL (1.2-4.9); Lymphocytes Percent Auto 26.5 % (20-40); Mean Corpuscular HGB Conc 31.2 g/dl (31.0-36.0); Mean Corpuscular Hemoglobin 24.1 pg (27.0-33.0); Mean Corpuscular Volume 77.1 fL (80.0-98.0); Mean Platelet Volume 9.4 fL (9.4-12.4); Monocytes Absolute Auto 0.9 X10*3/uL (0.1-1.2); Monocytes Percent Auto 7.1 % (2-11); Neutrophils Absolute Auto 8.1 x10*3/uL (2.0-8.3); Neutrophils Percent Auto 61.6 % (45-73); Platelet Count 332 X10*3/uL (160-400); Red Blood Count 5.03 X10*6/uL (4.60-5.80); Red Cell Distribution Width 14.5 % (11.0-16.0); White Blood Count 13.2 X10*3/uL (4.8-10.8)
== END 2022-08-03 11:40 | disposition home or self-care (01) ==
LOC: HO.10HDL 11:39
PROVIDERS: Visit Provider Clinical Nurse Specialist Psychiatric/Mental Health, Adult
DX: Z79.899 Other long term (current) drug therapy (principal)
CPT/HCPCS: 36415; 85025

== ENCOUNTER 2022-08-30 18:54 | Emergency (ER) | payer MEDICARE, MEDICAID, SELFPAY ==
[2022-08-30 20:08] VITALS: BP 150/78; BP 160/90; PULSE 101; RESP 18; TEMP 37.2; O2SAT 97; O2SAT 98; BMI 50.2
--- NOTE | 2022-08-30 20:08 | ED.BACK ---
HPI - Back Pain/Injury General Chief Complaint: Back Pain/Injury <Lizzeth Childress CNP - Last Filed: 08/30/22 20:12> Stated Complaint: BACK PAIN <Lizzeth Childress CNP - Last Filed: 08/30/22 20:12> Time Seen by Provider: 08/30/22 21:56 <Lizzeth Childress CNP - Last Filed: 08/30/22 20:12> History of Present Illness HPI Narrative: Patient complains of back pain which started yesterday while he was walking any twisted a certain way and felt a sharp pain in the left lower back, pain was milder at 1st and now it is worse with movement and relieved when he lays in a comfortable position <MIKKI Freeman - Last Filed: 09/22/22 10:05> Related Data Home Medications: Previous Rx's Medication Instructions Recorded clozapine 200 mg tablet 200 mg PO BEDTIME 30 days #30 tabs 04/16/21 lithium carbonate 300 mg 300 mg PO BEDTIME 30 days #30 tabs 04/16/21 tablet,extended release olanzapine 5 mg tablet 5 mg PO DAILY PRN 04/16/21 Psychosis/anxiety/agitation 30 days #30 tabs omeprazole 20 mg capsule,delayed 20 mg PO DAILY@0630 30 days #30 04/16/21 release caps prazosin 1 mg capsule 1 mg PO BEDTIME 30 days #30 caps 04/16/21 sertraline 25 mg tablet 25 mg PO DAILY 30 days #30 tabs 04/16/21 trazodone 100 mg tablet 100 mg PO BEDTIME PRN insomnia 30 04/16/21 days #30 tabs cyclobenzaprine 5 mg tablet 5 mg PO TID PRN muscle spasm #10 08/30/22 tabs ibuprofen 600 mg tablet 600 mg PO Q6H PRN pain #20 tabs 08/30/22 oxycodone 5 mg tablet 5 mg PO Q6H PRN pain #10 tabs 08/30/22 <Lizzeth Childress CNP - Last Filed: 08/30/22 20:12> Allergies/Adverse Reactions: Allergies Allergy/AdvReac Type Severity Reaction Status Date / Time No Known Allergies Allergy Verified 08/18/21 19:14 [No Known Allergies*] <Lizzeth Childress CNP - Last Filed: 08/30/22 20:12> Review of Systems Review of Systems: Positive for left-sided back pain Negatives are no fever no chills no dizziness no weakness no headache no neck pain no stiff neck no chest pain no shortness of breath no abdominal pain no nausea or vomiting no dysuria no changes to bowel or bladder no numbness weakness or tingling no difficulty walking no radiation of pain no skin <MIKKI Freeman - Last Filed: 09/22/22 10:05> Yes all other systems are reviewed and are negative <MIKKI Freeman - Last Filed: 09/22/22 10:05> PMFSH Past Medical History Source: nursing notes reviewed <MIKKI Freeman - Last Filed: 09/22/22 10:05> Medical History: Medical History Depression Noncompliance by refusing intervention or support Post traumatic stress disorder (PTSD) Schizoaffective disorder, bipolar type <Lizzeth Childress CNP - Last Filed: 08/30/22 20:12> Social History Social History: Social History Household Members: None Housing: Apartment Do you presently have visiting nurse or other home services: No Alcohol intake: current Alcohol intake frequency: holidays/special occasions only Alcohol type: beer Patient Tobacco Use Status: Current someday Tobacco user Tobacco use type: Cigarette Cigarette Packs Per Day: 0 Cigarettes Per Day: 0 Years Smoked: 1 year e-Cigarette/Vaping Use: Never Used Second Hand Smoke Exposure: Yes Substance Use Type: Marijuana service: No Sexual orientation: Straight/Heterosexual <Lizzeth Childress CNP - Last Filed: 08/30/22 20:12> Physical Exam Vital Signs: Vital Signs: Last Vital Signs Temp 99.0 F 08/30/22 20:08 Pulse 101 H 08/30/22 20:08 Resp 18 08/30/22 20:08 BP 150/78 H 08/30/22 20:08 Pulse Ox 97 08/30/22 20:08 O2 Del Method 08/30/22 20:08 BMI result Body Mass Index 50.2 <Lizzeth Childress CNP - Last Filed: 08/30/22 20:12> Vital Signs: Last Vital Signs Temp 99.0 F 08/30/22 20:08 Pulse 101 H 08/30/22 20:08 Resp 18 08/30/22 20:08 BP 150/78 H 08/30/22 20:08 Pulse Ox 97 08/30/22 20:08 O2 Del Method 08/30/22 20:08 BMI result Body Mass Index 50.2 <MIKKI Freeman - Last Filed: 09/22/22 10:05> General appearance comfortable no distress Head is normocephalic atraumatic Neck is supple The chest is clear to auscultation bilateral heart no murmur Abdomen soft nontender The back had left-sided paraspinal lower lumbar tenderness no focal bony tenderness, skin of the back was normal no redness no wounds no rashes Pain easily reproduced with movement, no CVA tenderness Extremities full range of motion x4 Neuro gait and balance are normal, interaction comprehension and expression are normal, motor is 5/5 x4 and sensation in distal extremities is intact and symmetrical <MIKKI Freeman - Last Filed: 09/22/22 10:05> Course Course Course Narrative: RME: Patient is a 37 year old male who presents emergency department for evaluation of back pain. Reports sudden onset of severe left back pain yesterday while walking, radiating to left lower abdomen. Pain is constant with varying intensity, made worse with certain movements. Denies fevers, chills, nausea, vomiting, dysuria, hematuria denies any numbness or tingling to the extremity/perineum, bladder bowel dysfunction. Denies fall or injury. Has not taken anything for the pain today, took acetaminophen 500 mg last night without any improvement. Plan: Urinalysis, basic labs, acetaminophen for pain. <Lizzeth Childress, DIDIER - Last Filed: 08/30/22 20:12> RME: Patient is a 37 year old male who presents emergency department for evaluation of back pain. Reports sudden onset of severe left back pain yesterday while walking, radiating to left lower abdomen. Pain is constant with varying intensity, made worse with certain movements. Denies fevers, chills, nausea, vomiting, dysuria, hematuria denies any numbness or tingling to the extremity/perineum, bladder bowel dysfunction. Denies fall or injury. Has not taken anything for the pain today, took acetaminophen 500 mg last night without any improvement. Plan: Urinalysis, basic labs, acetaminophen for pain. Patient with easily reproducible musculoskeletal discomfort in the left lower back with no neurologic deficit no IV drugs no fever no changes to bowel or bladder is discharged with analgesics <MIKKI Freeman - Last Filed: 09/22/22 10:05> Medications Administered Discontinued Medications Generic Name Dose Route Start Last Admin Trade Name Freq PRN Reason Stop Dose Admin Acetaminophen 975 mg 08/30/22 20:11 08/30/22 20:15 Acetaminophen 325 Mg Tablet PO 08/30/22 20:12 975 mg ONCE ONE Administration Ketorolac Tromethamine 30 mg 08/30/22 22:22 08/30/22 23:22 Ketorolac Tromethamine 30 Mg/Ml Vial IM 08/30/22 22:23 30 mg ONCE ONE Administration <Lizzeth Childress CNP - Last Filed: 08/30/22 20:12> Medications Administered Discontinued Medications Generic Name Dose Route Start Last Admin Trade Name Freq PRN Reason Stop Dose Admin Acetaminophen 975 mg 08/30/22 20:11 08/30/22 20:15 Acetaminophen 325 Mg Tablet PO 08/30/22 20:12 975 mg ONCE ONE Administration Ketorolac Tromethamine 30 mg 08/30/22 22:22 08/30/22 23:22 Ketorolac Tromethamine 30 Mg/Ml Vial IM 08/30/22 22:23 30 mg ONCE ONE Administration <MIKKI Freeman - Last Filed: 09/22/22 10:05> Medical Decision Making Lab Data Result Diagrams: 08/30/22 21:14 08/30/22 21:14 <Lizzeth Childress CNP - Last Filed: 08/30/22 20:12> Labs: Lab Results 08/30/22 08/30/22 Range/Units 21:14 21:14 WBC 12.3 H (4.8-10.8) X10*3/uL RBC 5.09 (4.60-5.80) X10*6/uL Hgb 12.2 L (14.0-18.0) g/dl Hct 38.0 L (42.0-52.0) % MCV 74.7 L (80.0-98.0) fL MCH 24.0 L (27.0-33.0) pg MCHC 32.1 (31.0-36.0) g/dl RDW 14.2 (11.0-16.0) % Plt Count 313 (160-400) X10*3/uL MPV 8.7 L (9.4-12.4) fL Immature Gran % (Auto) 0.7 H (0.0-0.4) % Neut % (Auto) 64.0 (45-73) % Lymph % (Auto) 23.9 (20-40) % [place] % (Auto) 7.7 (2-11) % Eos % (Auto) 3.1 (0-4) % Baso % (Auto) 0.6 (0-2) % Lymph # (Auto) 2.9 (1.2-4.9) X10*3/uL [place] # (Auto) 0.9 (0.1-1.2) X10*3/uL Eos # (Auto) 0.4 (0.0-0.4) X10*3/uL Baso # (Auto) 0.1 (0.0-0.2) X10*3/uL Abs Immat Gran (auto) 0.09 H (0.00-0.03) X10*3/uL Absolute Neuts (auto) 7.8 (2.0-8.3) x10*3/uL Absolute Nucleated RBC 0.000 (0.0-0.012) X10*3/uL Nucleated RBC % (auto) 0.0 (0.0-0.2) /100WBC Sodium 140 (135-145) mmol/L Potassium 3.6 (3.3-5.1) mmol/L Chloride 105 (96-108) mmol/L Carbon Dioxide 26 (22-29) mmol/L Anion Gap 13 (12-20) BUN 8 L (9-16) mg/dL Creatinine 0.77 (0.5-1.4) mg/dL Estim Creat Clear Calc 201.3 Estimated GFR > 60 Random Glucose 134 H (60-115) mg/dL Calcium 8.9 D (8.4-10.2) mg/dL Total Bilirubin 0.3 (0.0-1.0) mg/dL AST 19 (5-37) U/L ALT 25 (0-40) U/L Alkaline Phosphatase 117 (39-117) U/L Total Protein 6.6 (6.5-8.0) g/dL Albumin 4.2 (3.5-5.0) g/dL <Lizzeth Dobbs Fior [employer] - Last Filed: 08/30/22 20:12> Lab Results 08/30/22 08/30/22 Range/Units 21:14 21:14 WBC 12.3 H (4.8-10.8) X10*3/uL RBC 5.09 (4.60-5.80) X10*6/uL Hgb 12.2 L (14.0-18.0) g/dl Hct 38.0 L (42.0-52.0) % MCV 74.7 L (80.0-98.0) fL MCH 24.0 L (27.0-33.0) pg MCHC 32.1 (31.0-36.0) g/dl RDW 14.2 (11.0-16.0) % Plt Count 313 (160-400) X10*3/uL MPV 8.7 L (9.4-12.4) fL Immature Gran % (Auto) 0.7 H (0.0-0.4) % Neut % (Auto) 64.0 (45-73) % Lymph % (Auto) 23.9 (20-40) % [place] % (Auto) 7.7 (2-11) % Eos % (Auto) 3.1 (0-4) % Baso % (Auto) 0.6 (0-2) % Lymph # (Auto) 2.9 (1.2-4.9) X10*3/uL [place] # (Auto) 0.9 (0.1-1.2) X10*3/uL Eos # (Auto) 0.4 (0.0-0.4) X10*3/uL Baso # (Auto) 0.1 (0.0-0.2) X10*3/uL Abs Immat Gran (auto) 0.09 H (0.00-0.03) X10*3/uL Absolute Neuts (auto) 7.8 (2.0-8.3) x10*3/uL Absolute Nucleated RBC 0.000 (0.0-0.012) X10*3/uL Nucleated RBC % (auto) 0.0 (0.0-0.2) /100WBC Sodium 140 (135-145) mmol/L Potassium 3.6 (3.3-5.1) mmol/L Chloride 105 (96-108) mmol/L Carbon Dioxide 26 (22-29) mmol/L Anion Gap 13 (12-20) BUN 8 L (9-16) mg/dL Creatinine 0.77 (0.5-1.4) mg/dL Estim Creat Clear Calc 201.3 Estimated GFR > 60 Random Glucose 134 H (60-115) mg/dL Calcium 8.9 D (8.4-10.2) mg/dL Total Bilirubin 0.3 (0.0-1.0) mg/dL AST 19 (5-37) U/L ALT 25 (0-40) U/L Alkaline Phosphatase 117 (39-117) U/L Total Protein 6.6 (6.5-8.0) g/dL Albumin 4.2 (3.5-5.0) g/dL <MIKKI Freeman - Last Filed: 09/22/22 10:05> Discharge Plan Discharge Clinical Impression: Back pain <Lizzeth Childress CNP - Last Filed: 08/30/22 20:12> Patient Disposition: Home, Self-Care <Lizzeth Childress CNP - Last Filed: 08/30/22 20:12> Additional Instructions: You likely have strained muscles or ligaments in your back use pain medicine and muscle relaxer as directed Follow with primary doctor for possible physical therapy if it does not get better soon return any time any worse condition or any concerns <Lizzeth Childress CNP - Last Filed: 08/30/22 20:12> Prescriptions: New ibuprofen 600 mg tablet 600 mg PO Q6H PRN (Reason: pain) Qty: 20 0RF cyclobenzaprine 5 mg tablet 5 mg PO TID PRN (Reason: muscle spasm) Qty: 10 0RF oxycodone 5 mg tablet 5 mg PO Q6H PRN (Reason: pain) Qty: 10 0RF Rx Instructions: Partial Fill upon patient request. No Action prazosin 1 mg Capsule 1 mg PO BEDTIME 30 Days Qty: 30 0RF Protocol: Hold for SBP< HOLD for SBP < : 90 lithium carbonate 300 mg Tablet Extended Release 300 mg PO BEDTIME 30 Days Qty: 30 0RF sertraline 25 mg Tablet 25 mg PO DAILY 30 Days Qty: 30 0RF omeprazole 20 mg Capsule,Delayed Release(Dr/Ec) 20 mg PO DAILY@0630 30 Days Qty: 30 0RF olanzapine 5 mg Tablet 5 mg PO DAILY PRN (Reason: Psychosis/anxiety/agitation) 30 Days Qty: 30 0RF trazodone 100 mg tablet 100 mg PO BEDTIME PRN (Reason: insomnia) 30 Days Qty: 30 0RF clozapine 200 mg tablet 200 mg PO BEDTIME 30 Days Qty: 30 0RF <Lizzeth Childress CNP - Last Filed: 08/30/22 20:12> Interventions: ED Discharge Assessment Last Done: 08/31/22 00:02 <Lizzeth Childress CNP - Last Filed: 08/30/22 20:12> Discharge Date/Time: 08/31/22 00:04 <Lizzeth Childress CNP - Last Filed: 08/30/22 20:12>
[2022-08-30] MEDS: Acetaminophen 325 MG TABLET 975 MG PO (20:15)
[2022-08-30 21:19] LABS: MANUAL DIFF FLAG NO
[2022-08-30 21:22] LABS: Basophils Absolute Auto 0.1 X10*3/uL (0.0-0.2); Basophils Percent Auto 0.6 % (0-2); Eosinophils Absolute Auto 0.4 X10*3/uL (0.0-0.4); Eosinophils Percent Auto 3.1 % (0-4); Hemoglobin 12.2 g/dl (14.0-18.0); Imm Gran Abs Auto 0.09 X10*3/uL (0.00-0.03); Imm Gran Pct Auto 0.7 % (0.0-0.4); Lymphocytes Absolute Auto 2.9 X10*3/uL (1.2-4.9); Lymphocytes Percent Auto 23.9 % (20-40); Mean Corpuscular HGB Conc 32.1 g/dl (31.0-36.0); Mean Corpuscular Volume 74.7 fL (80.0-98.0); Mean Platelet Volume 8.7 fL (9.4-12.4); Monocytes Absolute Auto 0.9 X10*3/uL (0.1-1.2); Monocytes Percent Auto 7.7 % (2-11); Neutrophils Absolute Auto 7.8 x10*3/uL (2.0-8.3); Platelet Count 313 X10*3/uL (160-400); Red Blood Count 5.09 X10*6/uL (4.60-5.80); Red Cell Distribution Width 14.2 % (11.0-16.0); White Blood Count 12.3 X10*3/uL (4.8-10.8)
[2022-08-30 21:37] LABS: Alanine Aminotransferase 25 U/L (0-40); Albumin Level 4.2 g/dL (3.5-5.0); Alkaline Phosphatase 117 U/L (39-117); Anion Gap 13 (12-20); Aspartate Amino Transferase 19 U/L (5-37); Bilirubin Total 0.3 mg/dL (0.0-1.0); Blood Urea Nitrogen 8 mg/dL (9-16); Calcium 8.9 mg/dL (8.4-10.2); Carbon Dioxide 26 mmol/L (22-29); Chloride 105 mmol/L (96-108); Creatinine Clr Calc Pharmacy 201.3; Estimated Glomerular Filt Rate > 60; Glucose Random 134 mg/dL (60-115); Potassium 3.6 mmol/L (3.3-5.1); Sodium 140 mmol/L (135-145); Total Protein 6.6 g/dL (6.5-8.0)
[2022-08-30] MEDS: Ketorolac Tromethamine 30 MG/ML VIAL IM (23:22)
== END 2022-08-31 00:04 | disposition home or self-care (01) ==
PROVIDERS: Nurse Practitioner Family; Emergency Provider Internal Medicine; PCP Internal Medicine
DX: M54.50 Low back pain, unspecified (principal); F17.210 Nicotine dependence, cigarettes, uncomplicated; Z71.6 Tobacco abuse counseling; Z79.899 Other long term (current) drug therapy
CPT/HCPCS: 36415; 80053; 85025; 96372; 99283; 99284; J1885

== ENCOUNTER 2022-09-02 14:00 | Outpatient (REF) | payer MEDICARE, MEDICAID, SELFPAY ==
[2022-09-02 14:17] LABS: MANUAL DIFF FLAG NO
[2022-09-02 14:33] LABS: Basophils Absolute Auto 0.1 X10*3/uL (0.0-0.2); Basophils Percent Auto 0.6 % (0-2); Eosinophils Absolute Auto 0.3 X10*3/uL (0.0-0.4); Eosinophils Percent Auto 3.1 % (0-4); Hemoglobin 12.2 g/dl (14.0-18.0); Imm Gran Abs Auto 0.07 X10*3/uL (0.00-0.03); Imm Gran Pct Auto 0.7 % (0.0-0.4); Lymphocytes Absolute Auto 2.3 X10*3/uL (1.2-4.9); Mean Corpuscular HGB Conc 31.3 g/dl (31.0-36.0); Mean Corpuscular Volume 76.8 fL (80.0-98.0); Mean Platelet Volume 9.1 fL (9.4-12.4); Monocytes Absolute Auto 0.6 X10*3/uL (0.1-1.2); Neutrophils Absolute Auto 6.6 x10*3/uL (2.0-8.3); Neutrophils Percent Auto 66.6 % (45-73); Platelet Count 305 X10*3/uL (160-400); Red Blood Count 5.08 X10*6/uL (4.60-5.80)
[2022-09-02 14:37] LABS: Estimated Average Glucose 128 mg/dL; Hemoglobin A1c % 6.1 %
[2022-09-02 15:37] LABS: Anion Gap 13 (12-20); Blood Urea Nitrogen 7 mg/dL (9-16); Calcium 9.5 mg/dL (8.4-10.2); Carbon Dioxide 28 mmol/L (22-29); Chloride 105 mmol/L (96-108); Estimated Glomerular Filt Rate > 60; Glucose Random 135 mg/dL (60-115); Potassium 4.3 mmol/L (3.3-5.1); Sodium 142 mmol/L (135-145)
[2022-09-02 15:38] LABS: Lithium 0.14 mmol/L (0.60-1.20)
== END 2022-09-02 14:01 | disposition home or self-care (01) ==
LOC: HO.LAB 14:00
PROVIDERS: Absent Provider Internal Medicine; PCP Internal Medicine; Visit Provider Clinical Nurse Specialist Psychiatric/Mental Health, Adult
DX: E78.00 Pure hypercholesterolemia, unspecified (principal); F31.9 Bipolar disorder, unspecified; Z79.899 Other long term (current) drug therapy
CPT/HCPCS: 36415; 80048; 80178; 83036; 85025

== ENCOUNTER 2022-09-29 11:12 | Outpatient (REF) | payer MEDICARE, MEDICAID, SELFPAY ==
[2022-09-29 13:35] LABS: MANUAL DIFF FLAG NO
[2022-09-29 13:44] LABS: Basophils Absolute Auto 0.1 X10*3/uL (0.0-0.2); Basophils Percent Auto 0.9 % (0-2); Eosinophils Absolute Auto 0.3 X10*3/uL (0.0-0.4); Eosinophils Percent Auto 3.2 % (0-4); Hematocrit 39.3 % (42.0-52.0); Imm Gran Abs Auto 0.07 X10*3/uL (0.00-0.03); Imm Gran Pct Auto 0.8 % (0.0-0.4); Lymphocytes Absolute Auto 2.4 X10*3/uL (1.2-4.9); Lymphocytes Percent Auto 27.5 % (20-40); Mean Corpuscular HGB Conc 30.5 g/dl (31.0-36.0); Mean Corpuscular Hemoglobin 23.4 pg (27.0-33.0); Mean Corpuscular Volume 76.6 fL (80.0-98.0); Mean Platelet Volume 9.6 fL (9.4-12.4); Monocytes Absolute Auto 0.7 X10*3/uL (0.1-1.2); Monocytes Percent Auto 7.8 % (2-11); Neutrophils Absolute Auto 5.2 x10*3/uL (2.0-8.3); Neutrophils Percent Auto 59.8 % (45-73); Platelet Count 313 X10*3/uL (160-400); Red Blood Count 5.13 X10*6/uL (4.60-5.80); White Blood Count 8.7 X10*3/uL (4.8-10.8)
[2022-10-03 14:29] LABS: Clozapine (Clozaril) 346 mcg/L; Norclozapine 207 mcg/L (25-400)
== END 2022-09-29 11:13 | disposition home or self-care (01) ==
LOC: HO.10HDL 11:12
PROVIDERS: Visit Provider Clinical Nurse Specialist Psychiatric/Mental Health, Adult
DX: Z79.899 Other long term (current) drug therapy (principal)
CPT/HCPCS: 36415; 80159; 85025

== ENCOUNTER 2022-10-27 11:13 | Outpatient (REF) | payer MEDICARE, MEDICAID, SELFPAY ==
[2022-10-27 13:36] LABS: MANUAL DIFF FLAG NO
[2022-10-27 13:39] LABS: Basophils Absolute Auto 0.1 X10*3/uL (0.0-0.2); Basophils Percent Auto 0.6 % (0-2); Eosinophils Absolute Auto 0.3 X10*3/uL (0.0-0.4); Eosinophils Percent Auto 2.7 % (0-4); Hematocrit 40.4 % (42.0-52.0); Hemoglobin 12.4 g/dl (14.0-18.0); Imm Gran Abs Auto 0.07 X10*3/uL (0.00-0.03); Imm Gran Pct Auto 0.6 % (0.0-0.4); Lymphocytes Absolute Auto 2.3 X10*3/uL (1.2-4.9); Mean Corpuscular HGB Conc 30.7 g/dl (31.0-36.0); Mean Corpuscular Hemoglobin 23.6 pg (27.0-33.0); Mean Corpuscular Volume 76.8 fL (80.0-98.0); Mean Platelet Volume 9.3 fL (9.4-12.4); Monocytes Absolute Auto 0.7 X10*3/uL (0.1-1.2); Monocytes Percent Auto 6.7 % (2-11); Neutrophils Absolute Auto 7.4 x10*3/uL (2.0-8.3); Neutrophils Percent Auto 68.4 % (45-73); Platelet Count 317 X10*3/uL (160-400); Red Blood Count 5.26 X10*6/uL (4.60-5.80); White Blood Count 10.9 X10*3/uL (4.8-10.8)
== END 2022-10-27 11:14 | disposition home or self-care (01) ==
LOC: HO.10HDL 11:13
PROVIDERS: Visit Provider Clinical Nurse Specialist Psychiatric/Mental Health, Adult
DX: Z79.899 Other long term (current) drug therapy (principal)
CPT/HCPCS: 36415; 85025

== ENCOUNTER 2022-11-25 12:09 | Outpatient (REF) | payer MEDICARE, MEDICAID, SELFPAY ==
[2022-11-25 14:03] LABS: MANUAL DIFF FLAG NO
[2022-11-25 14:33] LABS: Basophils Absolute Auto 0.1 X10*3/uL (0.0-0.2); Basophils Percent Auto 0.9 % (0-2); Eosinophils Absolute Auto 0.3 X10*3/uL (0.0-0.4); Eosinophils Percent Auto 2.6 % (0-4); Hematocrit 40.6 % (42.0-52.0); Hemoglobin 12.5 g/dl (14.0-18.0); Imm Gran Abs Auto 0.09 X10*3/uL (0.00-0.03); Imm Gran Pct Auto 0.8 % (0.0-0.4); Lymphocytes Absolute Auto 2.4 X10*3/uL (1.2-4.9); Lymphocytes Percent Auto 20.1 % (20-40); Mean Corpuscular HGB Conc 30.8 g/dl (31.0-36.0); Mean Corpuscular Hemoglobin 23.6 pg (27.0-33.0); Mean Corpuscular Volume 76.6 fL (80.0-98.0); Mean Platelet Volume 9.4 fL (9.4-12.4); Monocytes Percent Auto 8.1 % (2-11); Neutrophils Percent Auto 67.5 % (45-73); Platelet Count 309 X10*3/uL (160-400); Red Cell Distribution Width 14.3 % (11.0-16.0); White Blood Count 11.8 X10*3/uL (4.8-10.8)
== END 2022-11-25 12:10 | disposition home or self-care (01) ==
LOC: HO.10HDL 12:09
PROVIDERS: Visit Provider Clinical Nurse Specialist Psychiatric/Mental Health, Adult
DX: Z79.899 Other long term (current) drug therapy (principal)
CPT/HCPCS: 36415; 85025

== ENCOUNTER 2022-12-24 12:30 | Outpatient (REF) | payer MEDICARE, MEDICAID, SELFPAY ==
[2022-12-24 13:28] LABS: MANUAL DIFF FLAG NO
[2022-12-24 13:53] LABS: Basophils Absolute Auto 0.1 X10*3/uL (0.0-0.2); Basophils Percent Auto 0.9 % (0-2); Eosinophils Absolute Auto 0.3 X10*3/uL (0.0-0.4); Eosinophils Percent Auto 2.5 % (0-4); Hematocrit 38.2 % (42.0-52.0); Hemoglobin 12.1 g/dl (14.0-18.0); Imm Gran Abs Auto 0.07 X10*3/uL (0.00-0.03); Imm Gran Pct Auto 0.7 % (0.0-0.4); Lymphocytes Absolute Auto 2.4 X10*3/uL (1.2-4.9); Lymphocytes Percent Auto 22.9 % (20-40); Mean Corpuscular HGB Conc 31.7 g/dl (31.0-36.0); Mean Corpuscular Volume 75.6 fL (80.0-98.0); Mean Platelet Volume 9.6 fL (9.4-12.4); Monocytes Absolute Auto 0.8 X10*3/uL (0.1-1.2); Monocytes Percent Auto 7.4 % (2-11); Neutrophils Absolute Auto 6.7 x10*3/uL (2.0-8.3); Neutrophils Percent Auto 65.6 % (45-73); Platelet Count 306 X10*3/uL (160-400); Red Blood Count 5.05 X10*6/uL (4.60-5.80); Red Cell Distribution Width 14.4 % (11.0-16.0); White Blood Count 10.3 X10*3/uL (4.8-10.8)
[2022-12-24 14:05] LABS: Estimated Average Glucose 154 mg/dL
[2022-12-24 14:31] LABS: Lithium 0.13 mmol/L (0.60-1.20)
[2022-12-24 14:39] LABS: Alanine Aminotransferase 31 U/L (0-40); Albumin Level 4.1 g/dL (3.5-5.0); Alkaline Phosphatase 121 U/L (39-117); Anion Gap 13 (12-20); Aspartate Amino Transferase 21 U/L (5-37); Bilirubin Total 0.6 mg/dL (0.0-1.0); Blood Urea Nitrogen 11 mg/dL (9-16); Calcium 9.2 mg/dL (8.4-10.2); Carbon Dioxide 28 mmol/L (22-29); Chloride 106 mmol/L (96-108); Cholesterol 164 mg/dL; Estimated Glomerular Filt Rate > 60; Glucose Random 158 mg/dL (60-115); Sodium 143 mmol/L (135-145); Total Protein 6.4 g/dL (6.5-8.0)
== END 2022-12-24 12:31 | disposition home or self-care (01) ==
LOC: HO.10HDL 12:30
PROVIDERS: Visit Provider Internal Medicine
DX: K21.9 Gastro-esophageal reflux disease without esophagitis (principal); R73.03 Prediabetes; F31.9 Bipolar disorder, unspecified; Z79.899 Other long term (current) drug therapy
CPT/HCPCS: 36415; 80053; 80178; 82465; 83036; 85025

== ENCOUNTER 2023-01-20 12:29 | Outpatient (REF) | payer MEDICARE, MEDICAID, SELFPAY ==
[2023-01-20 13:30] LABS: MANUAL DIFF FLAG NO
[2023-01-20 13:37] LABS: Basophils Absolute Auto 0.1 X10*3/uL (0.0-0.2); Basophils Percent Auto 0.7 % (0-2); Eosinophils Absolute Auto 0.3 X10*3/uL (0.0-0.4); Eosinophils Percent Auto 2.5 % (0-4); Hematocrit 39.2 % (42.0-52.0); Imm Gran Abs Auto 0.07 X10*3/uL (0.00-0.03); Imm Gran Pct Auto 0.7 % (0.0-0.4); Lymphocytes Absolute Auto 2.6 X10*3/uL (1.2-4.9); Lymphocytes Percent Auto 26.2 % (20-40); Mean Corpuscular HGB Conc 30.6 g/dl (31.0-36.0); Mean Corpuscular Hemoglobin 23.8 pg (27.0-33.0); Mean Corpuscular Volume 77.8 fL (80.0-98.0); Mean Platelet Volume 9.6 fL (9.4-12.4); Monocytes Absolute Auto 0.7 X10*3/uL (0.1-1.2); Monocytes Percent Auto 7.3 % (2-11); Neut%MD 62.6 %; Neutrophils Absolute Auto 6.2 x10*3/uL (2.0-8.3); Neutrophils Percent Auto 62.6 % (45-73); Platelet Count 306 X10*3/uL (160-400); Red Blood Count 5.04 X10*6/uL (4.60-5.80); Red Cell Distribution Width 14.6 % (11.0-16.0); WBCANC 9.9 X10*3/uL; White Blood Count 9.9 X10*3/uL (4.8-10.8)
== END 2023-01-20 12:30 | disposition home or self-care (01) ==
LOC: HO.10HDL 12:29
PROVIDERS: Visit Provider Clinical Nurse Specialist Psychiatric/Mental Health, Adult
DX: Z79.899 Other long term (current) drug therapy (principal)
CPT/HCPCS: 36415; 85025

== ENCOUNTER 2023-02-22 11:49 | Outpatient (REF) | payer MEDICARE, MEDICAID, SELFPAY ==
[2023-02-22 13:12] LABS: White Blood Count 9.4 X10*3/uL (4.8-10.8)
== END 2023-02-22 11:50 | disposition home or self-care (01) ==
LOC: HO.10HDL 11:49
PROVIDERS: Visit Provider Clinical Nurse Specialist Psychiatric/Mental Health, Adult
DX: Z79.899 Other long term (current) drug therapy (principal)
CPT/HCPCS: 36415; 85048

== ENCOUNTER 2023-03-23 11:20 | Outpatient (REF) | payer MEDICARE, MEDICAID, SELFPAY ==
[2023-03-23 13:35] LABS: MANUAL DIFF FLAG NO
[2023-03-23 13:52] LABS: Basophils Absolute Auto 0.1 X10*3/uL (0.0-0.2); Basophils Percent Auto 0.9 % (0-2); Eosinophils Absolute Auto 0.4 X10*3/uL (0.0-0.4); Eosinophils Percent Auto 3.8 % (0-4); Hematocrit 38.2 % (42.0-52.0); Imm Gran Abs Auto 0.13 X10*3/uL (0.00-0.03); Imm Gran Pct Auto 1.4 % (0.0-0.4); Lymphocytes Absolute Auto 2.4 X10*3/uL (1.2-4.9); Lymphocytes Percent Auto 25.8 % (20-40); Mean Corpuscular HGB Conc 31.4 g/dl (31.0-36.0); Mean Corpuscular Hemoglobin 24.1 pg (27.0-33.0); Mean Corpuscular Volume 76.9 fL (80.0-98.0); Monocytes Absolute Auto 0.6 X10*3/uL (0.1-1.2); Monocytes Percent Auto 6.6 % (2-11); Neut%MD 61.5 %; Neutrophils Absolute Auto 5.7 x10*3/uL (2.0-8.3); Neutrophils Percent Auto 61.5 % (45-73); Platelet Count 312 X10*3/uL (160-400); Red Blood Count 4.97 X10*6/uL (4.60-5.80); WBCANC 9.3 X10*3/uL; White Blood Count 9.3 X10*3/uL (4.8-10.8)
== END 2023-03-23 11:21 | disposition home or self-care (01) ==
LOC: HO.10HDL 11:20
PROVIDERS: Visit Provider Clinical Nurse Specialist Psychiatric/Mental Health, Adult
DX: Z79.899 Other long term (current) drug therapy (principal)
CPT/HCPCS: 36415; 85025

== ENCOUNTER 2023-04-20 11:24 | Outpatient (REF) | payer MEDICARE, MEDICAID, SELFPAY ==
[2023-04-20 13:30] LABS: MANUAL DIFF FLAG NO
[2023-04-20 13:39] LABS: Basophils Absolute Auto 0.1 X10*3/uL (0.0-0.2); Basophils Percent Auto 0.9 % (0-2); Eosinophils Absolute Auto 0.3 X10*3/uL (0.0-0.4); Eosinophils Percent Auto 3.4 % (0-4); Hematocrit 38.1 % (42.0-52.0); Hemoglobin 12.1 g/dl (14.0-18.0); Imm Gran Abs Auto 0.08 X10*3/uL (0.00-0.03); Imm Gran Pct Auto 0.9 % (0.0-0.4); Lymphocytes Percent Auto 32.1 % (20-40); Mean Corpuscular HGB Conc 31.8 g/dl (31.0-36.0); Mean Corpuscular Hemoglobin 24.4 pg (27.0-33.0); Mean Platelet Volume 10.2 fL (9.4-12.4); Monocytes Absolute Auto 0.6 X10*3/uL (0.1-1.2); Monocytes Percent Auto 6.6 % (2-11); Neutrophils Absolute Auto 5.2 x10*3/uL (2.0-8.3); Neutrophils Percent Auto 56.1 % (45-73); Platelet Count 291 X10*3/uL (160-400); Red Blood Count 4.95 X10*6/uL (4.60-5.80); White Blood Count 9.2 X10*3/uL (4.8-10.8)
== END 2023-04-20 11:25 | disposition home or self-care (01) ==
LOC: HO.10HDL 11:24
PROVIDERS: Visit Provider Clinical Nurse Specialist Psychiatric/Mental Health, Adult
DX: Z79.899 Other long term (current) drug therapy (principal)
CPT/HCPCS: 36415; 85025

== ENCOUNTER 2023-05-11 11:27 | Outpatient (REF) | payer MEDICARE, MEDICAID, SELFPAY ==
[2023-05-11 11:34] LABS: MANUAL DIFF FLAG NO
[2023-05-11 11:56] LABS: Basophils Absolute Auto 0.1 X10*3/uL (0.0-0.2); Basophils Percent Auto 0.7 % (0-2); Eosinophils Absolute Auto 0.3 X10*3/uL (0.0-0.4); Eosinophils Percent Auto 2.6 % (0-4); Hematocrit 37.6 % (42.0-52.0); Hemoglobin 12.3 g/dl (14.0-18.0); Imm Gran Abs Auto 0.12 X10*3/uL (0.00-0.03); Imm Gran Pct Auto 1.1 % (0.0-0.4); Lymphocytes Absolute Auto 2.8 X10*3/uL (1.2-4.9); Lymphocytes Percent Auto 24.5 % (20-40); Mean Corpuscular HGB Conc 32.7 g/dl (31.0-36.0); Mean Corpuscular Hemoglobin 24.4 pg (27.0-33.0); Mean Corpuscular Volume 74.5 fL (80.0-98.0); Mean Platelet Volume 9.5 fL (9.4-12.4); Monocytes Absolute Auto 0.8 X10*3/uL (0.1-1.2); Monocytes Percent Auto 6.7 % (2-11); Neutrophils Absolute Auto 7.3 x10*3/uL (2.0-8.3); Neutrophils Percent Auto 64.4 % (45-73); Platelet Count 307 X10*3/uL (160-400); Red Blood Count 5.05 X10*6/uL (4.60-5.80); Red Cell Distribution Width 14.1 % (11.0-16.0); White Blood Count 11.4 X10*3/uL (4.8-10.8)
== END 2023-05-11 11:28 | disposition home or self-care (01) ==
LOC: HO.LABR 11:27
PROVIDERS: PCP Internal Medicine; Visit Provider Clinical Nurse Specialist Psychiatric/Mental Health, Adult
DX: Z79.899 Other long term (current) drug therapy (principal)
CPT/HCPCS: 36415; 85025

== ENCOUNTER 2023-06-10 11:10 | Outpatient (REF) | payer MEDICARE, MEDICAID, SELFPAY ==
[2023-06-10 13:19] LABS: MANUAL DIFF FLAG NO
[2023-06-10 13:24] LABS: Basophils Absolute Auto 0.1 X10*3/uL (0.0-0.2); Basophils Percent Auto 0.9 % (0-2); Eosinophils Absolute Auto 0.2 X10*3/uL (0.0-0.4); Eosinophils Percent Auto 2.4 % (0-4); Hematocrit 38.4 % (42.0-52.0); Hemoglobin 12.5 g/dl (14.0-18.0); Imm Gran Abs Auto 0.05 X10*3/uL (0.00-0.03); Imm Gran Pct Auto 0.6 % (0.0-0.4); Lymphocytes Percent Auto 23.9 % (20-40); Mean Corpuscular HGB Conc 32.6 g/dl (31.0-36.0); Mean Corpuscular Hemoglobin 24.7 pg (27.0-33.0); Mean Corpuscular Volume 75.7 fL (80.0-98.0); Monocytes Absolute Auto 0.5 X10*3/uL (0.1-1.2); Monocytes Percent Auto 5.9 % (2-11); Neut%MD 66.3 %; Neutrophils Absolute Auto 5.7 x10*3/uL (2.0-8.3); Neutrophils Percent Auto 66.3 % (45-73); Platelet Count 278 X10*3/uL (160-400); Red Blood Count 5.07 X10*6/uL (4.60-5.80); Red Cell Distribution Width 13.6 % (11.0-16.0); WBCANC 8.5 X10*3/uL; White Blood Count 8.5 X10*3/uL (4.8-10.8)
== END 2023-06-10 11:11 | disposition home or self-care (01) ==
LOC: HO.10HDL 11:10
PROVIDERS: Visit Provider Clinical Nurse Specialist Psychiatric/Mental Health, Adult
DX: Z79.899 Other long term (current) drug therapy (principal)
CPT/HCPCS: 36415; 85025

== ENCOUNTER 2023-06-29 17:32 | Emergency (ER) | payer MEDICARE, MEDICAID, SELFPAY ==
--- NOTE | ~2023-06-29 | CT_ITS ---
EXAMINATION: CT FACIAL BONES WITH CONTRAST CLINICAL INFORMATION: Abscess about T12 and 13. COMPARISON: None available. TECHNIQUE: Axial 3 mm thin and reformatted 1.5 mm thin sagittal and coronal images of facial bones were obtained. DLP This CT examination was performed using dose optimization techniques as appropriate, variously including the following: *Automated exposure control *Adjustment of mA and/or kV according to patient size (this includes techniques or standardized protocols for targeted exams where dose is matched to indication/reason for exam; i.e. extremities or head) *Use of iterative reconstruction technique DLP: 439 mGy-cm FINDINGS: There is mild mucoperiosteal thickening left maxillary sinus. Rest the paranasal sinuses are well-aerated. The paranasal sinus bony aponte, lamina papyracea and cribriform plate is intact. The drainage pathways are widely patent. There is normal symmetry of bilateral optic globe, optic nerve and bony orbits. There is normal symmetry of bilateral TM joints. The mandible is intact. The oral cavity evaluation is limited secondary to dental amalgam artifact. There is soft heterogeneous collection or abscess in the lateral cheek/alveolar space. There is a small focal air collection in the left upper second bicuspid tooth corresponding to #13, likely intra dental abscess with erosion of the lateral dentin and likely extension into the soft tissue cheek area. Rest of the visualized teeth are unremarkable. CT/CT facial bones w IV con IMPRESSION: Heterogeneous soft tissue collection left lateral cheek /alveolar space, likely abscess. There is focal intra dental gas seen along the left upper second bicuspid/#13 tooth with erosion of the lateral dentin and likely extension of abscess in the left cheek/alveolar space. Mild mucoperiosteal thickening left maxillary sinus with intact bony sinus aponte. Recommend evaluation with oral surgeon.
--- NOTE | 2023-06-29 17:38 | ED.GENADULT ---
HPI - General Adult General Chief complaint: Neuro Symptoms/Deficit Stated complaint: L side face/jaw pain x2days Time Seen by Provider: 06/29/23 21:00 Source: patient Mode of arrival: ambulatory History of Present Illness HPI narrative: This is a 38-year-old male who presents with left-sided cheek and jaw pain for 2 days that he describes as sharp and is both on the outside and the inside but denies any pain within the eye and denies any pain within the ear, he denies any trauma, fevers, chills. Patient states he is able to breathe and swallow without difficulty. Patient states that nothing makes it better or worse. Related Data Previous Rx's Medication Instructions Recorded ketorolac 10 mg tablet 10 mg PO Q6H PRN pain 5 days #20 06/29/23 tabs valacyclovir 1 gram tablet 1,000 mg PO Q8H 7 days #21 tabs 06/29/23 Allergies Allergy/AdvReac Type Severity Reaction Status Date / Time No Known Allergies Allergy Verified 08/18/21 19:14 [No Known Allergies*] Review of Systems Review of Systems: Pertinent positives and negatives as stated in HPI PMFSH Past Medical History Source: nursing notes reviewed Medical History Post traumatic stress disorder (PTSD) Noncompliance by refusing intervention or support Schizoaffective disorder, bipolar type Depression Social History Social History Household Members: None Housing: Apartment Do you presently have visiting nurse or other home services: No Alcohol intake: current Alcohol intake frequency: holidays/special occasions only Alcohol type: beer Patient Tobacco Use Status: Current someday Tobacco user Tobacco use type: Cigarette Cigarette Packs Per Day: 0 Cigarettes Per Day: 0 Years Smoked: 1 year Smoked in Last 30 Days: No e-Cigarette/Vaping Use: Never Used Second Hand Smoke Exposure: Yes Use of substances other than those prescribed or required for medical reasons: No Substance Use Type: Marijuana Advance Directives: No Advance Directives Information Provided: No service: No Sexual orientation: Straight/Heterosexual Physical Exam ED Vital Signs: Vital Signs - 24 hr 06/29/23 17:49 06/30/23 00:19 06/30/23 03:35 Temperature 98.6 F 97.9 F Pulse Rate 108 H 100 95 Respiratory Rate 20 20 20 Blood Pressure 174/101 H 147/93 H 161/90 H Pulse Oximetry 99 98 97 Oxygen Delivery Method Room Air Room Air Room Air 06/30/23 04:31 06/30/23 06:22 06/30/23 07:32 Temperature 97.6 F 97.7 F 97.7 F Pulse Rate 94 97 90 Respiratory Rate 20 16 20 Blood Pressure 166/92 H 144/87 H 142/94 H Pulse Oximetry 96 98 96 Oxygen Delivery Method Room Air Room Air Room Air 06/30/23 09:22 06/30/23 10:28 06/30/23 12:37 Temperature 97.7 F 97.8 F Pulse Rate 97 97 97 Respiratory Rate 20 17 16 Blood Pressure 165/80 H 166/84 H 141/83 H Pulse Oximetry 95 95 94 Oxygen Delivery Method Room Air Room Air Room Air 06/30/23 13:50 Temperature 97.8 F Pulse Rate 90 Respiratory Rate 16 Blood Pressure 139/84 Pulse Oximetry 95 Oxygen Delivery Method Room Air BMI result Body Mass Index 48.6 VITAL SIGNS: Reviewed. GENERAL: Well developed, well nourished, in no acute distress. HEAD: Normocephalic/atraumatic EYES: PERRLA, EOMI EARS: Ext canals without abnormality, TMs non-bulging and non-erythematous NOSE: Nares patent bilateral OROPHARYNX: no oral lesions noted, posterior pharynx clear and non-erythematous without noted tonsillar enlargement/erythema/exudates, no vesicular lesions, multiple dental caries NECK: Supple, no adenopathy LUNGS: Normal breath sounds. No adventitious sounds or accessory muscle use. SpO2<99> CARDIOVASCULAR: Regular rate and rhythm without noted murmurs ABDOMEN: Soft, non-tender, non-distended with bowel sounds. MUSCULOSKELETAL: No tenderness, deformities, or effusions noted on gross inspection. EXTREMITIES: No cyanosis, clubbing or edema. SKIN: Inspection of the skin reveals no rashes NEUROLOGIC: Alert and oriented x 4. Strength and sensation to light touch were grossly intact x 4. Course Course Course Narrative: RME - 38 yo male presents to the ER for evaluation of left sided facial pain and jaw pain that started 2 days ago when he was chewing. He states the pain is 10/10 and involves the entire left side of his face, down into his neck and behind his ear. It is painful in the taoism area as well. He has several missing teeth but denies any dental pain or injury. Multiple missing teeth on exam, no posterior molars, upper left 1st molar with some tenderness but no fluctuance. +submandibular tenderness and taoism tenderness. no trismus. +tonsillar erythema and swelling. Plan: strep swab, ESR Medications Administered Generic Name Dose Route Start Last Admin Trade Name Freq PRN Reason Stop Dose Admin Insulin Human Regular 100 unit in 100 mls @ 2 mls/hr 06/30/23 03:15 06/30/23 13:56 Myxredlin IVCONT 14 unit/hr .Q24H YANN 14 mls/hr Titration Protocol 2 UNIT/HR Sodium Bicarbonate 150 meq/ 1,000 mls @ 100 mls/hr 06/30/23 14:00 06/30/23 14:45 Dextrose IV 100 mls/hr .Q10H YANN Administration Discontinued Medications Generic Name Dose Route Start Last Admin Trade Name Freq PRN Reason Stop Dose Admin Sodium Chloride 1,000 mls @ 999 mls/hr 06/29/23 23:00 06/30/23 03:45 Ns IV 06/30/23 00:00 Infused .Q1H1M ONE Infusion Sodium Chloride 1,000 mls @ 999 mls/hr 06/29/23 23:08 06/30/23 06:16 Ns IV 06/30/23 00:08 Infused .Q1H1M ONE Infusion Dextrose/Lactated Ringer's 1,000 mls @ 125 mls/hr 06/30/23 08:30 06/30/23 14:44 D5lr IVCONT 125 mls/hr .Q8H YANN Infusion Piperacillin Sod/Tazobactam 100 mls @ 200 mls/hr 06/30/23 08:59 06/30/23 12:15 Sod 4.5 gm/ Sodium Chloride IV 06/30/23 09:28 Infused ONCE ONE Infusion Ibuprofen 600 mg 06/29/23 18:55 06/29/23 18:59 Ibuprofen 600 Mg Tablet PO 06/29/23 18:56 600 mg ONCE ONE Administration Insulin Human Regular 5 unit 06/30/23 02:35 06/30/23 03:02 Insulin Regular, Human 100 Unit/Ml 3 Ml Vial IVPUSH 06/30/23 02:36 5 unit ONCE ONE Administration Iohexol 85 ml 06/30/23 10:21 06/30/23 10:22 Iohexol 350 Mg/Ml 75 Ml Infus..Btl IV 06/30/23 10:22 85 ml ONCE ONE Administration Ketorolac Tromethamine 30 mg 06/29/23 23:23 06/29/23 23:50 Ketorolac Tromethamine 30 Mg/Ml Vial IVPUSH 06/29/23 23:24 30 mg ONCE ONE Administration Ketorolac Tromethamine 30 mg 06/30/23 03:49 06/30/23 03:53 Ketorolac Tromethamine 30 Mg/Ml Vial IVPUSH 06/30/23 03:50 30 mg ONCE ONE Administration Lorazepam 0.5 mg 06/30/23 08:59 06/30/23 10:41 Lorazepam 2 Mg/Ml Vial IVPUSH 06/30/23 09:00 0.5 mg ONCE ONE Administration Morphine Sulfate 4 mg 06/30/23 08:59 06/30/23 10:41 Morphine Sulfate 4 Mg/Ml Cartridge IVPUSH 06/30/23 09:00 4 mg ONCE STA Administration Protocol Oxycodone HCl 10 mg 06/30/23 06:38 06/30/23 06:45 Oxycodone Hcl Immed Release 5 Mg Tablet PO 06/30/23 06:39 10 mg ONCE ONE Administration Medical Decision Making Medical Decision Making MDM Narrative: This is a 38-year-old male with history and clinical presentation, DDX: Low clinical suspicion for dental abscesses I do not appreciate any gingival swelling or redness, there is no trismus and no correlation with opening and closing the jaw the submental area is soft on palpation, there are no lesions within the ear and no vesicular rash, no findings to suggest TMJ and I have high clinical suspicion that this is herpes zoster and patient will be treated with analgesics as well as initial dose of valacyclovir. I reviewed all investigations and hematologic indices are negative for leukocytosis or left shift, there is no anemia and there is no thrombocytopenia. Chemistry indices are negative for KINA but there is significant anion gap metabolic acidosis with hyperglycemia and on questioning the patient regarding his diabetic state he says that he is on metformin and was told he is prediabetic. Rapid strep test is negative. ESR although elevated is not in the range to suggest any type of giant cell arteritis in the simply a marker of inflammatory response that I am interpreting as being secondary to herpes zoster. Awaiting beta hydroxybutyrate. Signed out to Dr Contreras 02:00 Patient seen and re-evaluated prediabetic with schizoaffective disorder comes here for pain in left mandibular area for last few days patient is prediabetic not taking any medications lab workup showed normal WBC count and sed rate with elevated glucose of 294 and anion gap of 25 and bicarb of 15 venous gases with normal pH of 7.38. Beta hydroxybutyrate was elevated 2.24 no alcohol use no starvation no sepsis with lab workup patient is in diabetic ketoacidosis patient received IV fluids repeat labs showed further decrease in bicarb to 12 and further rise in anion gap to 27 will give patient insulin IV and on the blood sugar drops less than 200 will start on dextrose drip. 715 am patient looks much better no vomiting taking p.o. fluids received insulin drip blood sugar stayed more than 200 will recheck chemistry and venous gases receives and gap is closed and not planned for admission Dr. Shai Melo will review , evaluate the patient for disposition 09:01 I assumed care from my colleague, Dr. Rashmi Contreras at 07:00. I did interview the patient. He told me that he has prediabetes and he has been taking metformin for 7 months. He states her last 2 days he has been having severe pain in his left upper jaw. On examination the patient has an apical dental abscess over teeth 12 and 13, incised and drained by me. I did order a CT scan of the face without IV contrast to rule out any deeper abscess. I did order blood cultures and lactic acid . The patient will be treated with Zosyn 4.5 g IV, morphine 4 mg IV and Ativan 0.5 mg IV. the patient's repeat labs still revealed an anion gap of 23 with a bicarb of 10. Patient's venous blood gas was 7.39 . Patient will need to remain on the insulin drip, I did order D5 LR at 125 cc an hour, do not think the patient's potassium at this time. I did discuss the patient's presentation with the covering literature teacher Dr. Maxine Centeno and she will evaluate the patient pending results of the CT scan of the face. 12:[address] scan of the patient's face with IV contrast did reveal a abscess of the left cheek. Please see the reading below. I did discuss this finding whether literature teacher and she felt that the patient needed to be transferred to a facility that could potentially drain this dental abscess. Our literature teacher also felt that the patient had a mixed metabolic /respiratory acidosis and felt that the patient would benefit from a bicarb drip as well as continuing the insulin drip. Patient will be started on a D5W bicarb drip at 125 cc/hour. lactic acid was normal at 0.5. CT facial bones w IV con IMPRESSION: Heterogeneous soft tissue collection left lateral cheek /alveolar space, likely abscess. There is focal intra dental gas seen along the left upper second bicuspid/#13 tooth with erosion of the lateral dentin and likely extension of abscess in the left cheek/alveolar space. Mild mucoperiosteal thickening left maxillary sinus with intact bony sinus aponte. Dictated By: Ismael Barcenas MD 14:40 I contacted [facility], [facility] and they were unable to accept the patient in transfer due to capacity issues. The patient was accepted at [facility] ED to ED transfer, the excepting physician is Dr. Eastman.. patient was given ceftriaxone 1 g IV I will repeat the patient's BMP and VBG as well. Patient was also given morphine 4 mg IV for his dental pain. Patient will be kept NPO. Critical Care: The patient was critically ill with a high probability of imminent or life threatening deterioration. I spent greater than 30 minutes of discontinuous time evaluating the patient,delivering critical care at the bedside, discussing and evaluating pertinent data with consultants. Critical care time does not include time spent performing separately billable procedures or teaching. Total time spent performing critical care was 120 minutes. Differential Diagnosis Differential Diagnoses: The differential diagnosis associated with the presentation includes Please see the discussion above/ diabetic ketoacidosis Admission/Observation Consideration of admission/observation: Escalation of care including admission/observation considered Please see the discussion above Lab Data MDM Lab Attestation statement: I reviewed the patient's lab results. Please see the discussion above 06/29/23 18:07 06/30/23 07:46 Labs: Lab Results 06/29/23 06/29/23 06/29/23 Range/Units 18:07 23:49 23:55 WBC 10.2 (4.8-10.8) X10*3/uL RBC 5.54 (4.60-5.80) X10*6/uL Hgb 14.1 (14.0-18.0) g/dl Hct 41.1 L (42.0-52.0) % MCV 74.2 L (80.0-98.0) fL MCH 25.5 L (27.0-33.0) pg MCHC 34.3 (31.0-36.0) g/dl RDW 13.7 (11.0-16.0) % Plt Count 271 (160-400) X10*3/uL MPV 9.9 (9.4-12.4) fL Immature Gran % (Auto) 0.6 H (0.0-0.4) % Neut % (Auto) 67.8 (45-73) % Lymph % (Auto) 21.1 (20-40) % [place] % (Auto) 7.2 (2-11) % Eos % (Auto) 2.5 (0-4) % Baso % (Auto) 0.8 (0-2) % Lymph # (Auto) 2.2 (1.2-4.9) X10*3/uL [place] # (Auto) 0.7 (0.1-1.2) X10*3/uL Eos # (Auto) 0.3 (0.0-0.4) X10*3/uL Baso # (Auto) 0.1 (0.0-0.2) X10*3/uL Abs Immat Gran (auto) 0.06 H (0.00-0.03) X10*3/uL Absolute Neuts (auto) 6.9 (2.0-8.3) x10*3/uL Absolute Nucleated RBC 0.000 (0.0-0.012) X10*3/uL Nucleated RBC % (auto) 0.0 (0.0-0.2) /100WBC ESR 16 H (0-15) MM/HR VBG pH 7.38 (7.32-7.43) VBG pCO2 39 mmHg VBG pO2 35 mmHg VBG HCO3 23 (22-26) mmol/L VBG O2 Saturation 52.0 % VBG Base Excess -0.9 mmol/L Sodium 133 L (135-145) mmol/L Potassium 4.0 (3.3-5.1) mmol/L Chloride 97 (96-108) mmol/L Carbon Dioxide 15 L (22-29) mmol/L Anion Gap 25 H (12-20) BUN 7 L (9-16) mg/dL Creatinine 0.85 (0.5-1.4) mg/dL Estim Creat Clear Calc 177.0 Estimated GFR > 60 POC Glucose (60-115) mg/dL Random Glucose 294 H (60-115) mg/dL Estimat Average Glucose 303 mg/dL Hemoglobin A1c % 12.2 H (<6.0) % Lactic Acid (0.5-2.0) mmol/L Calcium 9.6 (8.4-10.2) mg/dL Beta-Hydroxybutyrate 2.24 H (0.02-0.27) mmol/L Urine Color Urine Appearance Urine pH (5.0-9.0) Ur Specific [place] (1.005-1.025) Urine Protein (Neg-Trace) mg/dL Urine Glucose (UA) (Negative) mg/dL Urine Ketones (Negative) mg/dL Urine Blood (Negative) Urine Nitrite (Negative) Ur Leukocyte Esterase (Negative) Urine RBC (0-2) /HPF Urine WBC (0-5) /HPF Ur Squamous Epith Cells (0-2) /HPF Urine Bacteria (None Seen) Hyaline Casts (0-2) /LPF Salicylates < 5.0 L (15-30) mg/dL [place] 0.11 L (0.60-1.20) mmol/L S. pyogenes GrpA MAIRA Negative (Negative) 06/30/23 06/30/23 06/30/23 Range/Units 01:40 02:43 04:22 WBC (4.8-10.8) X10*3/uL RBC (4.60-5.80) X10*6/uL Hgb (14.0-18.0) g/dl Hct (42.0-52.0) % MCV (80.0-98.0) fL MCH (27.0-33.0) pg MCHC (31.0-36.0) g/dl RDW (11.0-16.0) % Plt Count (160-400) X10*3/uL MPV (9.4-12.4) fL Immature Gran % (Auto) (0.0-0.4) % Neut % (Auto) (45-73) % Lymph % (Auto) (20-40) % [place] % (Auto) (2-11) % Eos % (Auto) (0-4) % Baso % (Auto) (0-2) % Lymph # (Auto) (1.2-4.9) X10*3/uL [place] # (Auto) (0.1-1.2) X10*3/uL Eos # (Auto) (0.0-0.4) X10*3/uL Baso # (Auto) (0.0-0.2) X10*3/uL Abs Immat Gran (auto) (0.00-0.03) X10*3/uL Absolute Neuts (auto) (2.0-8.3) x10*3/uL Absolute Nucleated RBC (0.0-0.012) X10*3/uL Nucleated RBC % (auto) (0.0-0.2) /100WBC ESR (0-15) MM/HR VBG pH (7.32-7.43) VBG pCO2 mmHg VBG pO2 mmHg VBG HCO3 (22-26) mmol/L VBG O2 Saturation % VBG Base Excess mmol/L Sodium 135 (135-145) mmol/L Potassium 3.5 (3.3-5.1) mmol/L Chloride 100 (96-108) mmol/L Carbon Dioxide 12 L (22-29) mmol/L Anion Gap 27 H (12-20) BUN 7 L (9-16) mg/dL Creatinine 0.82 (0.5-1.4) mg/dL Estim Creat Clear Calc 183.5 Estimated GFR > 60 POC Glucose 262 H 263 H (60-115) mg/dL Random Glucose 284 H (60-115) mg/dL Estimat Average Glucose mg/dL Hemoglobin A1c % (<6.0) % Lactic Acid (0.5-2.0) mmol/L Calcium 9.1 (8.4-10.2) mg/dL Beta-Hydroxybutyrate (0.02-0.27) mmol/L Urine Color Urine Appearance Urine pH (5.0-9.0) Ur Specific [place] (1.005-1.025) Urine Protein (Neg-Trace) mg/dL Urine Glucose (UA) (Negative) mg/dL Urine Ketones (Negative) mg/dL Urine Blood (Negative) Urine Nitrite (Negative) Ur Leukocyte Esterase (Negative) Urine RBC (0-2) /HPF Urine WBC (0-5) /HPF Ur Squamous Epith Cells (0-2) /HPF Urine Bacteria (None Seen) Hyaline Casts (0-2) /LPF Salicylates (15-30) mg/dL [place] (0.60-1.20) mmol/L S. pyogenes GrpA MAIRA (Negative) 06/30/23 06/30/23 06/30/23 Range/Units 05:28 06:16 06:20 WBC (4.8-10.8) X10*3/uL RBC (4.60-5.80) X10*6/uL Hgb (14.0-18.0) g/dl Hct (42.0-52.0) % MCV (80.0-98.0) fL MCH (27.0-33.0) pg MCHC (31.0-36.0) g/dl RDW (11.0-16.0) % Plt Count (160-400) X10*3/uL MPV (9.4-12.4) fL Immature Gran % (Auto) (0.0-0.4) % Neut % (Auto) (45-73) % Lymph % (Auto) (20-40) % [place] % (Auto) (2-11) % Eos % (Auto) (0-4) % Baso % (Auto) (0-2) % Lymph # (Auto) (1.2-4.9) X10*3/uL [place] # (Auto) (0.1-1.2) X10*3/uL Eos # (Auto) (0.0-0.4) X10*3/uL Baso # (Auto) (0.0-0.2) X10*3/uL Abs Immat Gran (auto) (0.00-0.03) X10*3/uL Absolute Neuts (auto) (2.0-8.3) x10*3/uL Absolute Nucleated RBC (0.0-0.012) X10*3/uL Nucleated RBC % (auto) (0.0-0.2) /100WBC ESR (0-15) MM/HR VBG pH (7.32-7.43) VBG pCO2 mmHg VBG pO2 mmHg VBG HCO3 (22-26) mmol/L VBG O2 Saturation % VBG Base Excess mmol/L Sodium (135-145) mmol/L Potassium (3.3-5.1) mmol/L Chloride (96-108) mmol/L Carbon Dioxide (22-29) mmol/L Anion Gap (12-20) BUN (9-16) mg/dL Creatinine (0.5-1.4) mg/dL Estim Creat Clear Calc Estimated GFR POC Glucose 263 H 259 H (60-115) mg/dL Random Glucose (60-115) mg/dL Estimat Average Glucose mg/dL Hemoglobin A1c % (<6.0) % Lactic Acid 0.5 (0.5-2.0) mmol/L Calcium (8.4-10.2) mg/dL Beta-Hydroxybutyrate (0.02-0.27) mmol/L Urine Color Yellow Urine Appearance Clear Urine pH 5.0 (5.0-9.0) Ur Specific [place] >= 1.030 H (1.005-1.025) Urine Protein 30 (1+) H (Neg-Trace) mg/dL Urine Glucose (UA) >=1000 H (Negative) mg/dL Urine Ketones >=160 (Negative) mg/dL Urine Blood Moderate (2+) H (Negative) Urine Nitrite Negative (Negative) Ur Leukocyte Esterase Negative (Negative) Urine RBC 11-20 H (0-2) /HPF Urine WBC 0-5 (0-5) /HPF Ur Squamous Epith Cells 0-2 (0-2) /HPF Urine Bacteria None Seen (None Seen) Hyaline Casts 3-5 (0-2) /LPF Salicylates (15-30) mg/dL [place] (0.60-1.20) mmol/L S. pyogenes GrpA MAIRA (Negative) 06/30/23 06/30/23 06/30/23 Range/Units 07:29 07:46 07:49 WBC (4.8-10.8) X10*3/uL RBC (4.60-5.80) X10*6/uL Hgb (14.0-18.0) g/dl Hct (42.0-52.0) % MCV (80.0-98.0) fL MCH (27.0-33.0) pg MCHC (31.0-36.0) g/dl RDW (11.0-16.0) % Plt Count (160-400) X10*3/uL MPV (9.4-12.4) fL Immature Gran % (Auto) (0.0-0.4) % Neut % (Auto) (45-73) % Lymph % (Auto) (20-40) % [place] % (Auto) (2-11) % Eos % (Auto) (0-4) % Baso % (Auto) (0-2) % Lymph # (Auto) (1.2-4.9) X10*3/uL [place] # (Auto) (0.1-1.2) X10*3/uL Eos # (Auto) (0.0-0.4) X10*3/uL Baso # (Auto) (0.0-0.2) X10*3/uL Abs Immat Gran (auto) (0.00-0.03) X10*3/uL Absolute Neuts (auto) (2.0-8.3) x10*3/uL Absolute Nucleated RBC (0.0-0.012) X10*3/uL Nucleated RBC % (auto) (0.0-0.2) /100WBC ESR (0-15) MM/HR VBG pH 7.39 (7.32-7.43) VBG pCO2 28 mmHg VBG pO2 116 mmHg VBG HCO3 17 L (22-26) mmol/L VBG O2 Saturation 99.0 % VBG Base Excess -5.7 mmol/L Sodium 133 L (135-145) mmol/L Potassium 3.3 (3.3-5.1) mmol/L Chloride 103 (96-108) mmol/L Carbon Dioxide 10 L* (22-29) mmol/L Anion Gap 23 H (12-20) BUN 7 L (9-16) mg/dL Creatinine 0.77 (0.5-1.4) mg/dL Estim Creat Clear Calc 195.4 Estimated GFR > 60 POC Glucose 250 H (60-115) mg/dL Random Glucose 237 H (60-115) mg/dL Estimat Average Glucose mg/dL Hemoglobin A1c % (<6.0) % Lactic Acid (0.5-2.0) mmol/L Calcium 8.7 (8.4-10.2) mg/dL Beta-Hydroxybutyrate (0.02-0.27) mmol/L Urine Color Urine Appearance Urine pH (5.0-9.0) Ur Specific [place] (1.005-1.025) Urine Protein (Neg-Trace) mg/dL Urine Glucose (UA) (Negative) mg/dL Urine Ketones (Negative) mg/dL Urine Blood (Negative) Urine Nitrite (Negative) Ur Leukocyte Esterase (Negative) Urine RBC (0-2) /HPF Urine WBC (0-5) /HPF Ur Squamous Epith Cells (0-2) /HPF Urine Bacteria (None Seen) Hyaline Casts (0-2) /LPF Salicylates (15-30) mg/dL [place] (0.60-1.20) mmol/L S. pyogenes GrpA MAIRA (Negative) 06/30/23 06/30/23 06/30/23 Range/Units 08:31 09:28 09:58 WBC (4.8-10.8) X10*3/uL RBC (4.60-5.80) X10*6/uL Hgb (14.0-18.0) g/dl Hct (42.0-52.0) % MCV (80.0-98.0) fL MCH (27.0-33.0) pg MCHC (31.0-36.0) g/dl RDW (11.0-16.0) % Plt Count (160-400) X10*3/uL MPV (9.4-12.4) fL Immature Gran % (Auto) (0.0-0.4) % Neut % (Auto) (45-73) % Lymph % (Auto) (20-40) % [place] % (Auto) (2-11) % Eos % (Auto) (0-4) % Baso % (Auto) (0-2) % Lymph # (Auto) (1.2-4.9) X10*3/uL [place] # (Auto) (0.1-1.2) X10*3/uL Eos # (Auto) (0.0-0.4) X10*3/uL Baso # (Auto) (0.0-0.2) X10*3/uL Abs Immat Gran (auto) (0.00-0.03) X10*3/uL Absolute Neuts (auto) (2.0-8.3) x10*3/uL Absolute Nucleated RBC (0.0-0.012) X10*3/uL Nucleated RBC % (auto) (0.0-0.2) /100WBC ESR (0-15) MM/HR VBG pH (7.32-7.43) VBG pCO2 mmHg VBG pO2 mmHg VBG HCO3 (22-26) mmol/L VBG O2 Saturation % VBG Base Excess mmol/L Sodium (135-145) mmol/L Potassium (3.3-5.1) mmol/L Chloride (96-108) mmol/L Carbon Dioxide (22-29) mmol/L Anion Gap (12-20) BUN (9-16) mg/dL Creatinine (0.5-1.4) mg/dL Estim Creat Clear Calc Estimated GFR POC Glucose 218 H 204 H (60-115) mg/dL Random Glucose (60-115) mg/dL Estimat Average Glucose mg/dL Hemoglobin A1c % (<6.0) % Lactic Acid 0.5 (0.5-2.0) mmol/L Calcium (8.4-10.2) mg/dL Beta-Hydroxybutyrate (0.02-0.27) mmol/L Urine Color Urine Appearance Urine pH (5.0-9.0) Ur Specific [place] (1.005-1.025) Urine Protein (Neg-Trace) mg/dL Urine Glucose (UA) (Negative) mg/dL Urine Ketones (Negative) mg/dL Urine Blood (Negative) Urine Nitrite (Negative) Ur Leukocyte Esterase (Negative) Urine RBC (0-2) /HPF Urine WBC (0-5) /HPF Ur Squamous Epith Cells (0-2) /HPF Urine Bacteria (None Seen) Hyaline Casts (0-2) /LPF Salicylates (15-30) mg/dL [place] (0.60-1.20) mmol/L S. pyogenes GrpA MAIRA (Negative) 06/30/23 06/30/23 06/30/23 Range/Units 10:24 11:28 12:36 WBC (4.8-10.8) X10*3/uL RBC (4.60-5.80) X10*6/uL Hgb (14.0-18.0) g/dl Hct (42.0-52.0) % MCV (80.0-98.0) fL MCH (27.0-33.0) pg MCHC (31.0-36.0) g/dl RDW (11.0-16.0) % Plt Count (160-400) X10*3/uL MPV (9.4-12.4) fL Immature Gran % (Auto) (0.0-0.4) % Neut % (Auto) (45-73) % Lymph % (Auto) (20-40) % [place] % (Auto) (2-11) % Eos % (Auto) (0-4) % Baso % (Auto) (0-2) % Lymph # (Auto) (1.2-4.9) X10*3/uL [place] # (Auto) (0.1-1.2) X10*3/uL Eos # (Auto) (0.0-0.4) X10*3/uL Baso # (Auto) (0.0-0.2) X10*3/uL Abs Immat Gran (auto) (0.00-0.03) X10*3/uL Absolute Neuts (auto) (2.0-8.3) x10*3/uL Absolute Nucleated RBC (0.0-0.012) X10*3/uL Nucleated RBC % (auto) (0.0-0.2) /100WBC ESR (0-15) MM/HR VBG pH (7.32-7.43) VBG pCO2 mmHg VBG pO2 mmHg VBG HCO3 (22-26) mmol/L VBG O2 Saturation % VBG Base Excess mmol/L Sodium (135-145) mmol/L Potassium (3.3-5.1) mmol/L Chloride (96-108) mmol/L Carbon Dioxide (22-29) mmol/L Anion Gap (12-20) BUN (9-16) mg/dL Creatinine (0.5-1.4) mg/dL Estim Creat Clear Calc Estimated GFR POC Glucose 224 H 231 H 218 H (60-115) mg/dL Random Glucose (60-115) mg/dL Estimat Average Glucose mg/dL Hemoglobin A1c % (<6.0) % Lactic Acid (0.5-2.0) mmol/L Calcium (8.4-10.2) mg/dL Beta-Hydroxybutyrate (0.02-0.27) mmol/L Urine Color Urine Appearance Urine pH (5.0-9.0) Ur Specific [place] (1.005-1.025) Urine Protein (Neg-Trace) mg/dL Urine Glucose (UA) (Negative) mg/dL Urine Ketones (Negative) mg/dL Urine Blood (Negative) Urine Nitrite (Negative) Ur Leukocyte Esterase (Negative) Urine RBC (0-2) /HPF Urine WBC (0-5) /HPF Ur Squamous Epith Cells (0-2) /HPF Urine Bacteria (None Seen) Hyaline Casts (0-2) /LPF Salicylates (15-30) mg/dL [place] (0.60-1.20) mmol/L S. pyogenes GrpA MAIRA (Negative) 06/30/23 Range/Units 13:43 WBC (4.8-10.8) X10*3/uL RBC (4.60-5.80) X10*6/uL Hgb (14.0-18.0) g/dl Hct (42.0-52.0) % MCV (80.0-98.0) fL MCH (27.0-33.0) pg MCHC (31.0-36.0) g/dl RDW (11.0-16.0) % Plt Count (160-400) X10*3/uL MPV (9.4-12.4) fL Immature Gran % (Auto) (0.0-0.4) % Neut % (Auto) (45-73) % Lymph % (Auto) (20-40) % [place] % (Auto) (2-11) % Eos % (Auto) (0-4) % Baso % (Auto) (0-2) % Lymph # (Auto) (1.2-4.9) X10*3/uL [place] # (Auto) (0.1-1.2) X10*3/uL Eos # (Auto) (0.0-0.4) X10*3/uL Baso # (Auto) (0.0-0.2) X10*3/uL Abs Immat Gran (auto) (0.00-0.03) X10*3/uL Absolute Neuts (auto) (2.0-8.3) x10*3/uL Absolute Nucleated RBC (0.0-0.012) X10*3/uL Nucleated RBC % (auto) (0.0-0.2) /100WBC ESR (0-15) MM/HR VBG pH (7.32-7.43) VBG pCO2 mmHg VBG pO2 mmHg VBG HCO3 (22-26) mmol/L VBG O2 Saturation % VBG Base Excess mmol/L Sodium (135-145) mmol/L Potassium (3.3-5.1) mmol/L Chloride (96-108) mmol/L Carbon Dioxide (22-29) mmol/L Anion Gap (12-20) BUN (9-16) mg/dL Creatinine (0.5-1.4) mg/dL Estim Creat Clear Calc Estimated GFR POC Glucose 204 H (60-115) mg/dL Random Glucose (60-115) mg/dL Estimat Average Glucose mg/dL Hemoglobin A1c % (<6.0) % Lactic Acid (0.5-2.0) mmol/L Calcium (8.4-10.2) mg/dL Beta-Hydroxybutyrate (0.02-0.27) mmol/L Urine Color Urine Appearance Urine pH (5.0-9.0) Ur Specific [place] (1.005-1.025) Urine Protein (Neg-Trace) mg/dL Urine Glucose (UA) (Negative) mg/dL Urine Ketones (Negative) mg/dL Urine Blood (Negative) Urine Nitrite (Negative) Ur Leukocyte Esterase (Negative) Urine RBC (0-2) /HPF Urine WBC (0-5) /HPF Ur Squamous Epith Cells (0-2) /HPF Urine Bacteria (None Seen) Hyaline Casts (0-2) /LPF Salicylates (15-30) mg/dL [place] (0.60-1.20) mmol/L S. pyogenes GrpA MAIRA (Negative) External Record Review External record reviewed: Outpatient record, Prior outpatient labs and Prior outpatient radiology Chronic Conditions Patient?s care impacted by: Diabetes Critical Care Time Critical Care Time Critical Care Time: Yes Total Critical Care Time: 55 Attestation: The patient was critically ill with a high probability of imminent or life threatening deterioration. I spent greater than 60 minutes of discontinuous time evaluating the patient,delivering critical care at the bedside, discussing and evaluating pertinent data with consultants. Critical care time does not include time spent performing separately billable procedures or teaching. Total time spent performing critical care was 55 minutes. Discharge Plan Discharge Clinical Impression: DKA (diabetic ketoacidosis), Abscess, dental, Abscess of face Patient Disposition: [facility] Transfer Details: [facility] Emergency Department, excepting physician Dr. Eastman Prescriptions: New valacyclovir 1 gram tablet 1,000 mg PO Q8H 7 Days Qty: 21 0RF ketorolac 10 mg tablet 10 mg PO Q6H PRN (Reason: pain) 5 Days Qty: 20 0RF Rx Instructions: Toradol in the ED Referrals: Don Martinez MD [Primary Care Provider] -
[2023-06-29 17:49] VITALS: BP 174/101; BP 177/120; PULSE 108; PULSE 110; RESP 20; TEMP 37; O2SAT 99; BMI 48.6
[2023-06-29 18:15] LABS: MANUAL DIFF FLAG NO
[2023-06-29 18:20] LABS: Basophils Absolute Auto 0.1 X10*3/uL (0.0-0.2); Basophils Percent Auto 0.8 % (0-2); Eosinophils Absolute Auto 0.3 X10*3/uL (0.0-0.4); Eosinophils Percent Auto 2.5 % (0-4); Hematocrit 41.1 % (42.0-52.0); Hemoglobin 14.1 g/dl (14.0-18.0); Imm Gran Abs Auto 0.06 X10*3/uL (0.00-0.03); Imm Gran Pct Auto 0.6 % (0.0-0.4); Lymphocytes Absolute Auto 2.2 X10*3/uL (1.2-4.9); Lymphocytes Percent Auto 21.1 % (20-40); Mean Corpuscular HGB Conc 34.3 g/dl (31.0-36.0); Mean Corpuscular Hemoglobin 25.5 pg (27.0-33.0); Mean Corpuscular Volume 74.2 fL (80.0-98.0); Mean Platelet Volume 9.9 fL (9.4-12.4); Monocytes Absolute Auto 0.7 X10*3/uL (0.1-1.2); Monocytes Percent Auto 7.2 % (2-11); Neutrophils Absolute Auto 6.9 x10*3/uL (2.0-8.3); Neutrophils Percent Auto 67.8 % (45-73); Platelet Count 271 X10*3/uL (160-400); Red Blood Count 5.54 X10*6/uL (4.60-5.80); Red Cell Distribution Width 13.7 % (11.0-16.0); White Blood Count 10.2 X10*3/uL (4.8-10.8)
[2023-06-29 18:27] LABS: IDNOW Serial# 08D9AD1C; Strep A Nucleic Acid Negative (Negative)
[2023-06-29 18:35] LABS: Anion Gap 25 (12-20); Blood Urea Nitrogen 7 mg/dL (9-16); Calcium 9.6 mg/dL (8.4-10.2); Carbon Dioxide 15 mmol/L (22-29); Chloride 97 mmol/L (96-108); Estimated Glomerular Filt Rate > 60; Glucose Random 294 mg/dL (60-115); Sodium 133 mmol/L (135-145)
[2023-06-29] MEDS: Ibuprofen 600 MG TABLET PO (18:59)
[2023-06-29 19:00] LABS: Erythrocyte Sedimentation Rate 16 MM/HR (0-15)
[2023-06-29 22:19] LABS: Beta-Hydroxybutyrate 2.24 mmol/L (0.02-0.27)
[2023-06-29] MEDS: 0.9 % Sodium Chloride 1,000 ML 999 ML IV ×2 (23:32→23:34)
[2023-06-29] MEDS: Ketorolac Tromethamine 30 MG/ML VIAL IVPUSH (23:50)
[2023-06-29 23:59] LABS: Venous Blood Gas Refer to POC result
[2023-06-30] VITALS (9 sets, daily range): BP systolic 139–166; BP diastolic 80–94; PULSE 90–100; RESP 16–20; TEMP 36.4–36.6; O2SAT 94–98
[2023-06-30 00:01] LABS: VBG Base Excess -0.9 mmol/L; VBG HCO3 23 mmol/L (22-26); VBG pCO2 39 mmHg; VBG pH 7.38 (7.32-7.43); VBG pO2 35 mmHg
[2023-06-30 00:14] LABS: Lithium 0.11 mmol/L (0.60-1.20)
--- NOTE | 2023-06-30 00:20 | PC.NURSE ---
Pt ca&ox4, no signs of distress. Pt reports 10/10 jaw/neck pain. Pt iv placed in left ac Fluids and meds administered per mar. vitals stable. Plan of care ongoing.
[2023-06-30 00:31] LABS: Salicylate < 5.0 mg/dL (15-30)
--- NOTE | 2023-06-30 01:46 | PC.NURSE ---
Labs completed. plan of care ongoing.
[2023-06-30 02:03] LABS: Anion Gap 27 (12-20); Blood Urea Nitrogen 7 mg/dL (9-16); Calcium 9.1 mg/dL (8.4-10.2); Carbon Dioxide 12 mmol/L (22-29); Chloride 100 mmol/L (96-108); Creatinine Clr Calc Pharmacy 183.5; Estimated Glomerular Filt Rate > 60; Glucose Random 284 mg/dL (60-115); Potassium 3.5 mmol/L (3.3-5.1); Sodium 135 mmol/L (135-145)
--- NOTE | 2023-06-30 02:45 | PC.NURSE ---
Pt POC 262. Anwer notified. Plan of care ongoing.
[2023-06-30 02:47] LABS: Glucose, Whole Blood 262 mg/dL (60-115)
[2023-06-30] MEDS: Insulin Regular, Human 100 UNIT/ML 3 ML VIAL IVPUSH (03:02)
--- NOTE | 2023-06-30 03:18 | PC.NURSE ---
Insulin titrate pulled, waiting on protocol from tank charger. Pt being admitted. Pt moved from EMC 5 to ED RM 7 per provider Anwer request. Report and hand off given to MARIA D Long. Insulin and protocol print out given to MARIA D Long. Plan of care ongoing.
[2023-06-30] MEDS: Insulin Regular/NS 100 UNIT/100 ML PLAST..BAG IVCONT (03:29)
--- NOTE | 2023-06-30 03:44 | PC.NURSE ---
insulin drip started at 2 ml/hr per protocol, will recheck POC in 1 hour for appropriate titration
[2023-06-30] MEDS: Ketorolac Tromethamine 30 MG/ML VIAL IVPUSH (03:53)
[2023-06-30 04:30] LABS: Glucose, Whole Blood 263 mg/dL (60-115)
--- NOTE | 2023-06-30 04:38 | PC.NURSE ---
insulin titrated up to 3 units/hr per protocol for a POC of 263, up from previous POC of 262. will check again in 1 hr
[2023-06-30 05:41] LABS: Glucose, Whole Blood 263 mg/dL (60-115)
--- NOTE | 2023-06-30 05:44 | PC.NURSE ---
insulin titration increased to 4.5 units/hr per protocol. POC remains the same at 263. 2nd liter of fluid is still infusing, 200cc left to infuse. pt resting comfortably with eyes closed, breathing even and unlabored.
--- NOTE | 2023-06-30 06:31 | PC.NURSE ---
insulin titration increased to 6.75 units/hour per protocol. POC decreased slightly to 259. will recheck in 1 hour
[2023-06-30 06:33] LABS: Glucose, Whole Blood 259 mg/dL (60-115)
[2023-06-30 06:37] LABS: Appearance Urine Clear; Color Urine Yellow; Glucose Urine UA >=1000 mg/dL (Negative); Leukocyte Esterase Urine Negative (Negative); Nitrite Urine Negative (Negative); Specific Gravity - Urine >= 1.030 (1.005-1.025); UMIC TRIGGER UACC YES; Urine Blood Moderate (2+) (Negative); Urine Ketones >=160 mg/dL (Negative); Urine Protein 30 (1+) mg/dL (Neg-Trace)
[2023-06-30 06:39] LABS: Bacteria Urine None Seen (None Seen); Squamous Epithelial Cell Urine 0-2 /HPF (0-2); WBC Urine 0-5 /HPF (0-5)
[2023-06-30] MEDS: oxyCODONE HCl Immed Release 5 MG TABLET 10 MG PO (06:45)
--- NOTE | 2023-06-30 06:45 | PC.NURSE ---
pt c/o L jaw pain 06/21. pt medicated per MAR
[2023-06-30 06:50] LABS: Lactic Acid 0.5 mmol/L (0.5-2.0)
[2023-06-30 07:03] LABS: Estimated Average Glucose 303 mg/dL; Hemoglobin A1c % 12.2 % (<6.0)
[2023-06-30 07:50] LABS: Glucose, Whole Blood 250 mg/dL (60-115)
[2023-06-30 07:53] LABS: Venous Blood Gas Refer to POC result
[2023-06-30 07:54] LABS: VBG Base Excess -5.7 mmol/L; VBG HCO3 17 mmol/L (22-26); VBG pCO2 28 mmHg; VBG pH 7.39 (7.32-7.43); VBG pO2 116 mmHg
--- NOTE | 2023-06-30 08:12 | PC.NURSE ---
PT IS A/O X 3 NO SOB/LAKSHMI NOTED. INSULIN DRIP AT 6.75UNITS/HR NOTED. THERE IS NO DOCUMENTATION NOTED IN THE CHART FROM 11P-7AM RN THAT THE INSULIN WAS TITRATED FROM 2UNITS/HR TO 6.75UNITS/HR. POC AT 0730 WAS 250. PT IS PENDING ADMISSION, THIS RN SPOKE TO DR. GONZALES (ED MD) AND NEW ORDER FOR INSULIN DRIP IS NOW 4UNITS/HR PENDING BMP RESULTS (ANION GAP).
[2023-06-30 08:17] LABS: Anion Gap 23 (12-20); Blood Urea Nitrogen 7 mg/dL (9-16); Calcium 8.7 mg/dL (8.4-10.2); Carbon Dioxide 10 mmol/L (22-29); Chloride 103 mmol/L (96-108); Creatinine Clr Calc Pharmacy 195.4; Estimated Glomerular Filt Rate > 60; Glucose Random 237 mg/dL (60-115); Potassium 3.3 mmol/L (3.3-5.1); Sodium 133 mmol/L (135-145)
--- NOTE | 2023-06-30 08:33 | PHA.MEDREC ---
Pharmacy Consult ? Medication Reconciliation Pharmacy has completed the medication reconciliation.
--- NOTE | 2023-06-30 08:35 | PC.NURSE ---
PER DR. GONZALES CONTINUE INSULIN DRIP AT 4UNITS/HR 2NDARY TO D5LR IS NOT COMPATIBLE WITH INSULIN DRIP UNTIL A 2ND IV CAN BE PLACED. PT IS NOT AN EASY STICK.
[2023-06-30 08:37] LABS: Glucose, Whole Blood 218 mg/dL (60-115)
[2023-06-30 09:33] LABS: Glucose, Whole Blood 204 mg/dL (60-115)
[2023-06-30] MEDS: Dextrose 5 % and Lactated Ring 1,000 ML 125 ML IVCONT (09:37)
[2023-06-30 10:18] LABS: Lactic Acid 0.5 mmol/L (0.5-2.0)
[2023-06-30] MEDS: iohexoL 350 MG/ML 75 ML INFUS..BTL 85 ML IV (10:22)
[2023-06-30 10:30] LABS: Glucose, Whole Blood 224 mg/dL (60-115)
[2023-06-30] MEDS: Morphine Sulfate 4 MG/ML CARTRIDGE IVPUSH ×2 (10:41→15:32)
[2023-06-30] MEDS: LORazepam 2 MG/ML VIAL 0.5 MG IVPUSH (10:41)
[2023-06-30 11:34] LABS: Glucose, Whole Blood 231 mg/dL (60-115)
[2023-06-30] MEDS: Piperacillin Sodium/Tazobactam 4.5 GM in 0.9 % Sodium Chloride 100 ML IV (11:43)
[2023-06-30 12:42] LABS: Glucose, Whole Blood 218 mg/dL (60-115)
[2023-06-30 13:50] LABS: Glucose, Whole Blood 204 mg/dL (60-115)
[2023-06-30] MEDS: Sodium Bicarbonate 8.4% 150 MEQ in Dextrose 5 % 850 ML 100 MEQ IV (14:45)
[2023-06-30] MEDS: cefTRIAXone sodium 1 GM in 0.9 % Sodium Chloride 50 ML IV (15:31)
[2023-06-30] MEDS: Insulin Regular/NS 100 UNIT/100 ML PLAST..BAG 14 UNIT IVCONT (15:32)
--- NOTE | 2023-06-30 15:47 | PC.NURSE ---
Blood sugar 175 at this time. Per MD insulin drip decreased to 10units/hr for transport
[2023-06-30 16:06] LABS: COVID-19 Test Negative (Negative); IDNOW Serial# 9DB6401D
[2023-06-30 16:31] LABS: Glucose, Whole Blood 175 mg/dL (60-115)
== END 2023-06-30 15:50 | disposition short-term general hospital (02) ==
PROVIDERS: Internal Medicine; Physician Assistant; Student in an Organized Health Care Education/Training Program; Emergency Provider Emergency Medicine Emergency Medical Services; PCP Internal Medicine
DX: K04.7 Periapical abscess without sinus (principal); R68.84 Jaw pain; F17.210 Nicotine dependence, cigarettes, uncomplicated; Z11.52 Encounter for screening for COVID-19; Z20.822 Contact with and (suspected) exposure to COVID-19; Z79.899 Other long term (current) drug therapy; Z71.6 Tobacco abuse counseling
CPT/HCPCS: 36415; 70487; 80048; 80178; 80179; 81001; 82010; 82803; 82947; 83036; 83605; 85025; 85652; 87040; 87070; 87205; 87635; 87651; 96361; 96365; 96366; 96367; 96375; 96376; 99285; J0696; J1885; J2060; J2270; J2543; Q9967

== ENCOUNTER 2023-07-08 11:07 | Outpatient (REF) | payer MEDICARE, MEDICAID, SELFPAY ==
[2023-07-08 13:25] LABS: MANUAL DIFF FLAG NO
[2023-07-08 13:50] LABS: Basophils Absolute Auto 0.1 X10*3/uL (0.0-0.2); Basophils Percent Auto 0.5 % (0-2); Eosinophils Absolute Auto 0.3 X10*3/uL (0.0-0.4); Eosinophils Percent Auto 2.1 % (0-4); Hematocrit 39.1 % (42.0-52.0); Hemoglobin 12.6 g/dl (14.0-18.0); Imm Gran Abs Auto 0.11 X10*3/uL (0.00-0.03); Imm Gran Pct Auto 0.8 % (0.0-0.4); Lymphocytes Absolute Auto 2.2 X10*3/uL (1.2-4.9); Mean Corpuscular HGB Conc 32.2 g/dl (31.0-36.0); Mean Corpuscular Volume 74.3 fL (80.0-98.0); Mean Platelet Volume 10.1 fL (9.4-12.4); Monocytes Absolute Auto 0.9 X10*3/uL (0.1-1.2); Monocytes Percent Auto 6.6 % (2-11); Neutrophils Absolute Auto 9.6 x10*3/uL (2.0-8.3); Platelet Count 336 X10*3/uL (160-400); Red Blood Count 5.26 X10*6/uL (4.60-5.80); WBCANC 13.1 X10*3/uL; White Blood Count 13.1 X10*3/uL (4.8-10.8)
[2023-07-08 14:09] LABS: Anion Gap 15 (12-20); Blood Urea Nitrogen 8 mg/dL (9-16); Calcium 9.5 mg/dL (8.4-10.2); Carbon Dioxide 25 mmol/L (22-29); Chloride 102 mmol/L (96-108); Estimated Glomerular Filt Rate > 60; Glucose Random 127 mg/dL (60-115); Potassium 3.1 mmol/L (3.3-5.1); Sodium 139 mmol/L (135-145)
[2023-07-08 14:14] LABS: Lithium 0.29 mmol/L (0.60-1.20)
[2023-07-08 14:26] LABS: Thyroid Stimulating Hormone 1.56 uIU/mL (0.32-4.0)
== END 2023-07-08 11:08 | disposition home or self-care (01) ==
LOC: HO.10HDL 11:07
PROVIDERS: Visit Provider Clinical Nurse Specialist Psychiatric/Mental Health, Adult
DX: Z79.899 Other long term (current) drug therapy (principal)
CPT/HCPCS: 36415; 80048; 80178; 84443; 85025

== ENCOUNTER 2023-07-14 10:12 | Outpatient (REF) | payer MEDICARE, MEDICAID, SELFPAY ==
[2023-07-14 10:24] LABS: MANUAL DIFF FLAG NO
[2023-07-14 10:54] LABS: Basophils Absolute Auto 0.1 X10*3/uL (0.0-0.2); Basophils Percent Auto 0.8 % (0-2); Eosinophils Absolute Auto 0.3 X10*3/uL (0.0-0.4); Eosinophils Percent Auto 3.9 % (0-4); Hematocrit 36.2 % (42.0-52.0); Hemoglobin 11.6 g/dl (14.0-18.0); Imm Gran Abs Auto 0.08 X10*3/uL (0.00-0.03); Imm Gran Pct Auto 0.9 % (0.0-0.4); Lymphocytes Absolute Auto 2.6 X10*3/uL (1.2-4.9); Lymphocytes Percent Auto 29.7 % (20-40); Mean Corpuscular Hemoglobin 24.2 pg (27.0-33.0); Mean Corpuscular Volume 75.6 fL (80.0-98.0); Mean Platelet Volume 9.9 fL (9.4-12.4); Monocytes Absolute Auto 0.7 X10*3/uL (0.1-1.2); Monocytes Percent Auto 8.2 % (2-11); Neutrophils Percent Auto 56.5 % (45-73); Platelet Count 291 X10*3/uL (160-400); Red Blood Count 4.79 X10*6/uL (4.60-5.80); Red Cell Distribution Width 14.5 % (11.0-16.0); White Blood Count 8.8 X10*3/uL (4.8-10.8)
[2023-07-14 11:02] LABS: Estimated Average Glucose 258 mg/dL; Hemoglobin A1c % 10.6 % (<6.0)
[2023-07-14 11:28] LABS: Alanine Aminotransferase 41 U/L (0-40); Albumin Level 3.9 g/dL (3.5-5.0); Alkaline Phosphatase 89 U/L (39-117); Anion Gap 12 (12-20); Aspartate Amino Transferase 32 U/L (5-37); Bilirubin Total 0.3 mg/dL (0.0-1.0); Blood Urea Nitrogen 9 mg/dL (9-16); Calcium 9.2 mg/dL (8.4-10.2); Carbon Dioxide 25 mmol/L (22-29); Chloride 109 mmol/L (96-108); Estimated Glomerular Filt Rate > 60; Glucose Random 135 mg/dL (60-115); Magnesium 1.5 mg/dL (1.6-2.6); Potassium 3.2 mmol/L (3.3-5.1); Sodium 143 mmol/L (135-145); Total Protein 6.5 g/dL (6.5-8.0)
[2023-07-14 12:52] LABS: Lithium 0.41 mmol/L (0.60-1.20)
== END 2023-07-14 10:13 | disposition home or self-care (01) ==
LOC: HO.LAB 10:12
PROVIDERS: PCP Internal Medicine; Visit Provider Internal Medicine
DX: E11.9 Type 2 diabetes mellitus without complications (principal); F31.9 Bipolar disorder, unspecified; Z79.899 Other long term (current) drug therapy
CPT/HCPCS: 36415; 80053; 80178; 83036; 83735; 85025

== ENCOUNTER 2023-08-02 10:28 | Outpatient (REF) | payer MEDICARE, MEDICAID, SELFPAY ==
[2023-08-02 10:54] LABS: MANUAL DIFF FLAG NO
[2023-08-02 11:33] LABS: Basophils Absolute Auto 0.1 X10*3/uL (0.0-0.2); Basophils Percent Auto 0.6 % (0-2); Eosinophils Absolute Auto 0.3 X10*3/uL (0.0-0.4); Eosinophils Percent Auto 2.2 % (0-4); Hematocrit 39.5 % (42.0-52.0); Hemoglobin 12.4 g/dl (14.0-18.0); Imm Gran Abs Auto 0.27 X10*3/uL (0.00-0.03); Lymphocytes Absolute Auto 2.7 X10*3/uL (1.2-4.9); Lymphocytes Percent Auto 20.5 % (20-40); Mean Corpuscular HGB Conc 31.4 g/dl (31.0-36.0); Mean Corpuscular Volume 76.4 fL (80.0-98.0); Monocytes Absolute Auto 0.8 X10*3/uL (0.1-1.2); Monocytes Percent Auto 5.6 % (2-11); Neutrophils Absolute Auto 9.2 x10*3/uL (2.0-8.3); Neutrophils Percent Auto 69.1 % (45-73); Platelet Count 395 X10*3/uL (160-400); Red Blood Count 5.17 X10*6/uL (4.60-5.80); Red Cell Distribution Width 14.2 % (11.0-16.0); White Blood Count 13.3 X10*3/uL (4.8-10.8)
== END 2023-08-02 10:29 | disposition home or self-care (01) ==
LOC: HO.LAB 10:28
PROVIDERS: PCP Internal Medicine; Visit Provider Clinical Nurse Specialist Psychiatric/Mental Health, Adult
DX: Z79.899 Other long term (current) drug therapy (principal)
CPT/HCPCS: 36415; 85025

== ENCOUNTER 2023-08-30 10:03 | Outpatient (REF) | payer MEDICARE, MEDICAID, SELFPAY ==
[2023-08-30 10:18] LABS: MANUAL DIFF FLAG NO
[2023-08-30 10:56] LABS: Basophils Absolute Auto 0.1 X10*3/uL (0.0-0.2); Basophils Percent Auto 0.9 % (0-2); Eosinophils Absolute Auto 0.3 X10*3/uL (0.0-0.4); Eosinophils Percent Auto 3.8 % (0-4); Hematocrit 39.3 % (42.0-52.0); Hemoglobin 11.9 g/dl (14.0-18.0); Imm Gran Abs Auto 0.07 X10*3/uL (0.00-0.03); Imm Gran Pct Auto 0.8 % (0.0-0.4); Lymphocytes Absolute Auto 2.9 X10*3/uL (1.2-4.9); Lymphocytes Percent Auto 33.4 % (20-40); Mean Corpuscular HGB Conc 30.3 g/dl (31.0-36.0); Mean Corpuscular Hemoglobin 23.7 pg (27.0-33.0); Mean Corpuscular Volume 78.1 fL (80.0-98.0); Mean Platelet Volume 9.6 fL (9.4-12.4); Monocytes Absolute Auto 0.7 X10*3/uL (0.1-1.2); Monocytes Percent Auto 8.3 % (2-11); Neutrophils Absolute Auto 4.6 x10*3/uL (2.0-8.3); Neutrophils Percent Auto 52.8 % (45-73); Platelet Count 325 X10*3/uL (160-400); Red Blood Count 5.03 X10*6/uL (4.60-5.80); Red Cell Distribution Width 14.5 % (11.0-16.0); White Blood Count 8.7 X10*3/uL (4.8-10.8)
[2023-08-30 10:59] LABS: Estimated Average Glucose 160 mg/dL; Hemoglobin A1c % 7.2 % (<6.0)
[2023-08-30 11:20] LABS: Anion Gap 11 (12-20); Blood Urea Nitrogen 12 mg/dL (9-16); Calcium 9.5 mg/dL (8.4-10.2); Carbon Dioxide 26 mmol/L (22-29); Chloride 108 mmol/L (96-108); Estimated Glomerular Filt Rate > 60; Glucose Random 146 mg/dL (60-115); Potassium 3.9 mmol/L (3.3-5.1); Sodium 141 mmol/L (135-145)
== END 2023-08-30 10:04 | disposition home or self-care (01) ==
LOC: HO.LAB 10:03
PROVIDERS: Clinical Nurse Specialist Psychiatric/Mental Health, Adult; PCP Internal Medicine; Visit Provider Internal Medicine
DX: E11.9 Type 2 diabetes mellitus without complications (principal); K21.9 Gastro-esophageal reflux disease without esophagitis; Z79.899 Other long term (current) drug therapy
CPT/HCPCS: 36415; 80048; 83036; 85025

== ENCOUNTER 2023-09-29 10:56 | Outpatient (REF) | payer MEDICARE, MEDICAID, SELFPAY ==
[2023-09-29 13:22] LABS: MANUAL DIFF FLAG NO
[2023-09-29 13:35] LABS: Basophils Absolute Auto 0.1 X10*3/uL (0.0-0.2); Eosinophils Absolute Auto 0.3 X10*3/uL (0.0-0.4); Hemoglobin 12.6 g/dl (14.0-18.0); Imm Gran Abs Auto 0.06 X10*3/uL (0.00-0.03); Imm Gran Pct Auto 0.7 % (0.0-0.4); Lymphocytes Absolute Auto 2.5 X10*3/uL (1.2-4.9); Lymphocytes Percent Auto 29.9 % (20-40); Mean Corpuscular HGB Conc 30.7 g/dl (31.0-36.0); Mean Corpuscular Hemoglobin 23.7 pg (27.0-33.0); Mean Corpuscular Volume 77.1 fL (80.0-98.0); Mean Platelet Volume 9.5 fL (9.4-12.4); Monocytes Absolute Auto 0.7 X10*3/uL (0.1-1.2); Monocytes Percent Auto 8.9 % (2-11); Neut%MD 56.5 %; Neutrophils Absolute Auto 4.7 x10*3/uL (2.0-8.3); Neutrophils Percent Auto 56.5 % (45-73); Platelet Count 331 X10*3/uL (160-400); Red Blood Count 5.32 X10*6/uL (4.60-5.80); Red Cell Distribution Width 14.5 % (11.0-16.0); WBCANC 8.3 X10*3/uL; White Blood Count 8.3 X10*3/uL (4.8-10.8)
== END 2023-09-29 10:57 | disposition home or self-care (01) ==
LOC: HO.10HDL 10:56
PROVIDERS: Visit Provider Clinical Nurse Specialist Psychiatric/Mental Health, Adult
DX: Z79.899 Other long term (current) drug therapy (principal)
CPT/HCPCS: 36415; 85025

== ENCOUNTER 2023-10-27 11:06 | Outpatient (REF) | payer MEDICARE, MEDICAID, SELFPAY ==
[2023-10-27 13:12] LABS: MANUAL DIFF FLAG NO
[2023-10-27 13:28] LABS: Basophils Absolute Auto 0.1 X10*3/uL (0.0-0.2); Basophils Percent Auto 0.8 % (0-2); Eosinophils Absolute Auto 0.2 X10*3/uL (0.0-0.4); Eosinophils Percent Auto 2.5 % (0-4); Hematocrit 41.1 % (42.0-52.0); Imm Gran Abs Auto 0.05 X10*3/uL (0.00-0.03); Imm Gran Pct Auto 0.5 % (0.0-0.4); Lymphocytes Absolute Auto 2.6 X10*3/uL (1.2-4.9); Lymphocytes Percent Auto 27.1 % (20-40); Mean Corpuscular HGB Conc 31.6 g/dl (31.0-36.0); Mean Corpuscular Hemoglobin 24.1 pg (27.0-33.0); Mean Corpuscular Volume 76.1 fL (80.0-98.0); Mean Platelet Volume 9.3 fL (9.4-12.4); Monocytes Absolute Auto 0.6 X10*3/uL (0.1-1.2); Monocytes Percent Auto 6.2 % (2-11); Neutrophils Absolute Auto 6.1 x10*3/uL (2.0-8.3); Neutrophils Percent Auto 62.9 % (45-73); Platelet Count 358 X10*3/uL (160-400); Red Cell Distribution Width 14.6 % (11.0-16.0); White Blood Count 9.8 X10*3/uL (4.8-10.8)
== END 2023-10-27 11:07 | disposition home or self-care (01) ==
LOC: HO.10HDL 11:06
PROVIDERS: Visit Provider Clinical Nurse Specialist Psychiatric/Mental Health, Adult
DX: Z79.899 Other long term (current) drug therapy (principal)
CPT/HCPCS: 36415; 85025

== ENCOUNTER 2023-11-24 11:03 | Outpatient (REF) | payer MEDICARE, MEDICAID, SELFPAY ==
[2023-11-24 13:18] LABS: MANUAL DIFF FLAG NO
[2023-11-24 13:38] LABS: Basophils Absolute Auto 0.1 X10*3/uL (0.0-0.2); Basophils Percent Auto 0.7 % (0-2); Eosinophils Absolute Auto 0.2 X10*3/uL (0.0-0.4); Eosinophils Percent Auto 2.1 % (0-4); Hematocrit 41.7 % (42.0-52.0); Hemoglobin 13.1 g/dl (14.0-18.0); Imm Gran Abs Auto 0.04 X10*3/uL (0.00-0.03); Imm Gran Pct Auto 0.4 % (0.0-0.4); Lymphocytes Absolute Auto 2.2 X10*3/uL (1.2-4.9); Lymphocytes Percent Auto 21.7 % (20-40); Mean Corpuscular HGB Conc 31.4 g/dl (31.0-36.0); Mean Corpuscular Hemoglobin 23.5 pg (27.0-33.0); Mean Corpuscular Volume 74.7 fL (80.0-98.0); Mean Platelet Volume 9.2 fL (9.4-12.4); Monocytes Absolute Auto 0.7 X10*3/uL (0.1-1.2); Neut%MD 68.1 %; Neutrophils Absolute Auto 6.9 x10*3/uL (2.0-8.3); Neutrophils Percent Auto 68.1 % (45-73); Platelet Count 320 X10*3/uL (160-400); Red Blood Count 5.58 X10*6/uL (4.60-5.80); Red Cell Distribution Width 14.6 % (11.0-16.0); WBCANC 10.1 X10*3/uL; White Blood Count 10.1 X10*3/uL (4.8-10.8)
== END 2023-11-24 11:04 | disposition home or self-care (01) ==
LOC: HO.10HDL 11:03
PROVIDERS: Visit Provider Clinical Nurse Specialist Psychiatric/Mental Health, Adult
DX: Z13.89 Encounter for screening for other disorder (principal)
CPT/HCPCS: 36415; 85025

== ENCOUNTER 2023-11-24 11:13 | Outpatient (REF) | payer MEDICARE, MEDICAID, SELFPAY ==
--- NOTE | ~2023-11-24 | XR_ITS ---
EXAMINATION: XR ANKLE, RIGHT CLINICAL INFORMATION: Right ankle pain, assess osteoarthritis. COMPARISON: 04/05/2018 TECHNIQUE: AP, lateral, and mortise views of the right ankle. FINDINGS: Redemonstration of fixation hardware including plate and screw fixation of the fibula, as well as 2 screws fixating the medial malleolus. Hardware appears intact. Alignment is preserved. XR/XR ankle RT min 3V IMPRESSION: Redemonstration of fixation hardware. Hardware appears intact. Alignment is preserved.
== END 2023-11-24 11:14 | disposition home or self-care (01) ==
LOC: HO.XRAY 11:13
PROVIDERS: PCP Internal Medicine; Visit Provider Internal Medicine
DX: M25.571 Pain in right ankle and joints of right foot (principal); E11.9 Type 2 diabetes mellitus without complications; K21.9 Gastro-esophageal reflux disease without esophagitis
CPT/HCPCS: 36415; 73610; 85025

== ENCOUNTER 2023-12-22 10:07 | Outpatient (REF) | payer MEDICARE, MEDICAID, SELFPAY ==
[2023-12-22 10:25] LABS: MANUAL DIFF FLAG NO
[2023-12-22 10:56] LABS: Basophils Absolute Auto 0.1 X10*3/uL (0.0-0.2); Basophils Percent Auto 0.8 % (0-2); Eosinophils Absolute Auto 0.2 X10*3/uL (0.0-0.4); Eosinophils Percent Auto 2.6 % (0-4); Hematocrit 41.7 % (42.0-52.0); Hemoglobin 13.3 g/dl (14.0-18.0); Imm Gran Abs Auto 0.05 X10*3/uL (0.00-0.03); Imm Gran Pct Auto 0.5 % (0.0-0.4); Lymphocytes Absolute Auto 2.3 X10*3/uL (1.2-4.9); Lymphocytes Percent Auto 25.4 % (20-40); Mean Corpuscular HGB Conc 31.9 g/dl (31.0-36.0); Mean Corpuscular Hemoglobin 23.8 pg (27.0-33.0); Mean Corpuscular Volume 74.5 fL (80.0-98.0); Mean Platelet Volume 9.2 fL (9.4-12.4); Monocytes Absolute Auto 0.8 X10*3/uL (0.1-1.2); Monocytes Percent Auto 8.2 % (2-11); Neutrophils Absolute Auto 5.7 x10*3/uL (2.0-8.3); Neutrophils Percent Auto 62.5 % (45-73); Platelet Count 277 X10*3/uL (160-400); Red Cell Distribution Width 14.6 % (11.0-16.0); White Blood Count 9.1 X10*3/uL (4.8-10.8)
== END 2023-12-22 10:08 | disposition home or self-care (01) ==
LOC: HO.LABR 10:07
PROVIDERS: PCP Internal Medicine; Visit Provider Clinical Nurse Specialist Psychiatric/Mental Health, Adult
DX: Z79.899 Other long term (current) drug therapy (principal)
CPT/HCPCS: 36415; 85025

== ENCOUNTER 2024-01-26 10:37 | Outpatient (REF) | payer MEDICARE, MEDICAID, SELFPAY ==
[2024-01-26 10:52] LABS: MANUAL DIFF FLAG NO
[2024-01-26 11:12] LABS: Basophils Absolute Auto 0.1 X10*3/uL (0.0-0.2); Basophils Percent Auto 0.8 % (0-2); Eosinophils Absolute Auto 0.3 X10*3/uL (0.0-0.4); Eosinophils Percent Auto 3.4 % (0-4); Hematocrit 41.3 % (42.0-52.0); Imm Gran Abs Auto 0.05 X10*3/uL (0.00-0.03); Imm Gran Pct Auto 0.5 % (0.0-0.4); Lymphocytes Absolute Auto 2.6 X10*3/uL (1.2-4.9); Lymphocytes Percent Auto 27.8 % (20-40); Mean Corpuscular HGB Conc 31.5 g/dl (31.0-36.0); Mean Corpuscular Hemoglobin 23.6 pg (27.0-33.0); Mean Corpuscular Volume 75.1 fL (80.0-98.0); Mean Platelet Volume 9.2 fL (9.4-12.4); Monocytes Absolute Auto 0.8 X10*3/uL (0.1-1.2); Monocytes Percent Auto 8.2 % (2-11); Neut%MD 59.3 %; Neutrophils Absolute Auto 5.6 x10*3/uL (2.0-8.3); Neutrophils Percent Auto 59.3 % (45-73); Platelet Count 312 X10*3/uL (160-400); Red Cell Distribution Width 14.6 % (11.0-16.0); WBCANC 9.5 X10*3/uL; White Blood Count 9.5 X10*3/uL (4.8-10.8)
== END 2024-01-26 10:38 | disposition home or self-care (01) ==
LOC: HO.10HDL 10:37
PROVIDERS: Visit Provider Clinical Nurse Specialist Psychiatric/Mental Health, Adult
DX: Z79.899 Other long term (current) drug therapy (principal)
CPT/HCPCS: 36415; 85025

== ENCOUNTER 2024-02-14 11:30 | Outpatient (REF) | payer MEDICARE, MEDICAID, SELFPAY ==
[2024-02-14 11:48] LABS: MANUAL DIFF FLAG NO
[2024-02-14 12:47] LABS: Basophils Absolute Auto 0.1 X10*3/uL (0.0-0.2); Basophils Percent Auto 0.9 % (0-2); Eosinophils Absolute Auto 0.3 X10*3/uL (0.0-0.4); Eosinophils Percent Auto 2.5 % (0-4); Hemoglobin 13.3 g/dl (14.0-18.0); Imm Gran Abs Auto 0.05 X10*3/uL (0.00-0.03); Imm Gran Pct Auto 0.4 % (0.0-0.4); Lymphocytes Absolute Auto 2.7 X10*3/uL (1.2-4.9); Lymphocytes Percent Auto 23.5 % (20-40); Mean Corpuscular HGB Conc 31.7 g/dl (31.0-36.0); Mean Corpuscular Hemoglobin 23.6 pg (27.0-33.0); Mean Corpuscular Volume 74.5 fL (80.0-98.0); Mean Platelet Volume 9.4 fL (9.4-12.4); Monocytes Absolute Auto 0.7 X10*3/uL (0.1-1.2); Monocytes Percent Auto 5.7 % (2-11); Neutrophils Absolute Auto 7.8 x10*3/uL (2.0-8.3); Platelet Count 331 X10*3/uL (160-400); Red Blood Count 5.64 X10*6/uL (4.60-5.80); Red Cell Distribution Width 14.7 % (11.0-16.0); White Blood Count 11.6 X10*3/uL (4.8-10.8)
== END 2024-02-14 11:31 | disposition home or self-care (01) ==
LOC: HO.LABR 11:30
PROVIDERS: PCP Internal Medicine; Visit Provider Clinical Nurse Specialist Psychiatric/Mental Health, Adult
DX: Z79.899 Other long term (current) drug therapy (principal)
CPT/HCPCS: 36415; 85025

== ENCOUNTER 2024-03-13 11:47 | Outpatient (REF) | payer MEDICARE, MEDICAID, SELFPAY ==
[2024-03-13 13:11] LABS: MANUAL DIFF FLAG NO
[2024-03-13 13:21] LABS: Basophils Absolute Auto 0.1 X10*3/uL (0.0-0.2); Basophils Percent Auto 0.8 % (0-2); Eosinophils Absolute Auto 0.3 X10*3/uL (0.0-0.4); Eosinophils Percent Auto 2.6 % (0-4); Hematocrit 41.7 % (42.0-52.0); Hemoglobin 12.9 g/dl (14.0-18.0); Imm Gran Abs Auto 0.07 X10*3/uL (0.00-0.03); Imm Gran Pct Auto 0.7 % (0.0-0.4); Lymphocytes Absolute Auto 2.3 X10*3/uL (1.2-4.9); Lymphocytes Percent Auto 22.7 % (20-40); Mean Corpuscular HGB Conc 30.9 g/dl (31.0-36.0); Mean Corpuscular Hemoglobin 23.6 pg (27.0-33.0); Mean Corpuscular Volume 76.4 fL (80.0-98.0); Mean Platelet Volume 9.3 fL (9.4-12.4); Monocytes Absolute Auto 0.6 X10*3/uL (0.1-1.2); Monocytes Percent Auto 5.9 % (2-11); Neut%MD 67.3 %; Neutrophils Absolute Auto 6.9 x10*3/uL (2.0-8.3); Neutrophils Percent Auto 67.3 % (45-73); Platelet Count 320 X10*3/uL (160-400); Red Blood Count 5.46 X10*6/uL (4.60-5.80); WBCANC 10.2 X10*3/uL; White Blood Count 10.2 X10*3/uL (4.8-10.8)
== END 2024-03-13 11:48 | disposition home or self-care (01) ==
LOC: HO.10HDL 11:47
PROVIDERS: Visit Provider Clinical Nurse Specialist Psychiatric/Mental Health, Adult
DX: Z79.899 Other long term (current) drug therapy (principal)
CPT/HCPCS: 36415; 85025

== ENCOUNTER 2024-04-10 10:45 | Outpatient (REF) | payer MEDICARE, MEDICAID, SELFPAY ==
[2024-04-10 11:01] LABS: MANUAL DIFF FLAG NO
[2024-04-10 12:32] LABS: Basophils Absolute Auto 0.1 X10*3/uL (0.0-0.2); Basophils Percent Auto 0.6 % (0-2); Eosinophils Absolute Auto 0.2 X10*3/uL (0.0-0.4); Hematocrit 40.8 % (42.0-52.0); Hemoglobin 12.6 g/dl (14.0-18.0); Imm Gran Abs Auto 0.09 X10*3/uL (0.00-0.03); Imm Gran Pct Auto 0.9 % (0.0-0.4); Lymphocytes Absolute Auto 2.3 X10*3/uL (1.2-4.9); Lymphocytes Percent Auto 24.2 % (20-40); Mean Corpuscular HGB Conc 30.9 g/dl (31.0-36.0); Mean Corpuscular Hemoglobin 23.3 pg (27.0-33.0); Mean Corpuscular Volume 75.4 fL (80.0-98.0); Mean Platelet Volume 9.4 fL (9.4-12.4); Monocytes Absolute Auto 0.6 X10*3/uL (0.1-1.2); Monocytes Percent Auto 6.1 % (2-11); Neutrophils Absolute Auto 6.3 x10*3/uL (2.0-8.3); Neutrophils Percent Auto 66.2 % (45-73); Platelet Count 342 X10*3/uL (160-400); Red Blood Count 5.41 X10*6/uL (4.60-5.80); Red Cell Distribution Width 14.4 % (11.0-16.0); White Blood Count 9.5 X10*3/uL (4.8-10.8)
== END 2024-04-10 10:46 | disposition home or self-care (01) ==
LOC: HO.LABR 10:45
PROVIDERS: PCP Internal Medicine; Visit Provider Clinical Nurse Specialist Psychiatric/Mental Health, Adult
DX: Z79.899 Other long term (current) drug therapy (principal)
CPT/HCPCS: 36415; 85025

== ENCOUNTER 2024-04-20 21:50 | Emergency (ER) | payer MEDICARE, MEDICAID, SELFPAY ==
[2024-04-20 21:59] VITALS: BP 180/110; BP 188/93; PULSE 90; PULSE 92; RESP 16; TEMP 36.3; O2SAT 98; BMI 33.9
[2024-04-20 22:29] LABS: Amphetamine Screen Urine Not Detected (Not Detect); Barbiturates, Urine Not Detected (Not Detect); Benzodiazepines Screen Urine Not Detected (Not Detect); Buprenorphine Scr Not Detected (Not Detect); Cannabinoid Screen Urine Not Detected (Not Detect); Cocaine Screen Urine Not Detected (Not Detect); Fentanyl, urine Not Detected (Not Detect); Methadone Screen, Urine Not Detected (Not Detect); Opiate Screen Urine Not Detected (Not Detect); Oxycodone Screen Urine Not Detected (Not Detect); Phencyclidine Screen Urine Not Detected (Not Detect)
[2024-04-20 22:30] LABS: Appearance Urine Clear; Color Urine Yellow; Glucose Urine UA >=1000 mg/dL (Negative); Leukocyte Esterase Urine Negative (Negative); Nitrite Urine Negative (Negative); Specific Gravity - Urine >= 1.030 (1.005-1.025); UMIC TRIGGER UACC YES; Urine Blood Negative (Negative); Urine Ketones Negative (Negative); Urine Protein Negative (Neg-Trace)
[2024-04-20 22:40] LABS: Hematocrit 38.8 % (42.0-52.0); Hemoglobin 12.6 g/dl (14.0-18.0); Mean Corpuscular HGB Conc 32.5 g/dl (31.0-36.0); Mean Corpuscular Hemoglobin 24.2 pg (27.0-33.0); Mean Corpuscular Volume 74.5 fL (80.0-98.0); Platelet Count 300 X10*3/uL (160-400); Red Blood Count 5.21 X10*6/uL (4.60-5.80); Red Cell Distribution Width 14.6 % (11.0-16.0); White Blood Count 10.5 X10*3/uL (4.8-10.8)
[2024-04-20 22:42] LABS: Bacteria Urine None Seen (None Seen); Hyaline Casts Urine 0-2 /LPF (0-2); RBC Urine 0-2 /HPF (0-2); Squamous Epithelial Cell Urine 0-2 /HPF (0-2); WBC Urine 0-5 /HPF (0-5)
[2024-04-20 22:47] LABS: Lithium 0.19 mmol/L (0.60-1.20)
[2024-04-20 22:54] LABS: Alanine Aminotransferase 25 U/L (0-40); Albumin Level 4.1 g/dL (3.5-5.0); Alkaline Phosphatase 121 U/L (39-117); Anion Gap 15 (12-20); Aspartate Amino Transferase 13 U/L (5-37); Bilirubin Total 0.3 mg/dL (0.0-1.0); Blood Urea Nitrogen 12 mg/dL (9-16); Calcium 9.9 mg/dL (8.4-10.2); Carbon Dioxide 23 mmol/L (22-29); Chloride 105 mmol/L (96-108); Creatinine Clr Calc Pharmacy 148.4; Estimated Glomerular Filt Rate > 60; Glucose Random 176 mg/dL (60-115); Potassium 3.6 mmol/L (3.3-5.1); Sodium 139 mmol/L (135-145)
--- NOTE | 2024-04-20 23:27 | PC.NURSE ---
resting queitly with eyes closed, resp with ease, will cont plan of care
--- NOTE | 2024-04-20 23:37 | ED.GENADULT ---
HPI - General Adult General Chief complaint: Psychiatric Symptoms Stated complaint: SI,HTN Time Seen by Provider: 04/20/24 23:37 Source: patient Limitations: no limitations History of Present Illness HPI narrative: 38-year-old male who has a history of PTSD, bipolar disorder, presents via EMS for evaluation of suicidal ideation. Patient states that he is feeling depressed and having thoughts of suicide. He does not have a specific plan. He states that he reported this to a friend by a text message. Patient continues to feel this way at this time. He denies any physical complaints. He denies any homicidal ideation. No auditory or visual hallucinations. He denies any illicit drug abuse. No alcohol use. He does smoke a tobacco occasionally. Patient is on lithium which he states he takes regularly. Related Data Previous Rx's ?Medication ?Instructions ?Recorded ketorolac 10 mg tablet 10 mg PO Q6H PRN pain 5 days #20 06/29/23 tabs valacyclovir 1 gram tablet 1,000 mg PO Q8H 7 days #21 tabs 06/29/23 Allergies Allergy/AdvReac Type Severity Reaction Status Date / Time No Known Allergies Allergy Verified 04/20/24 22:07 [No Known Allergies*] Review of Systems Constitutional: Constitutional: Denies chills and Denies fever(s) Eyes: Eyes: Denies change in vision and Denies other (No redness.) Cardiovascular: Cardiovascular: Denies chest pain, Denies dyspnea, Denies dyspnea on exertion and Denies orthopnea Respiratory: Respiratory: Denies cough, Denies dyspnea and Denies dyspnea on exertion Gastrointestinal: Gastrointestinal: Denies abdominal pain, Denies melena, Denies hematochezia, Denies diarrhea, Denies nausea and Denies vomiting Musculoskeletal: Musculoskeletal: Denies back pain, Denies muscle weakness and Denies numbness Integumentary/Breasts: Skin/Breast: Denies rash Neurologic: Denies focal weakness and Denies numbness Psychiatric: Psychiatric: Reports depression, Reports hopelessness and Reports suicidal ideation [facility] Past Medical History Medical History Post traumatic stress disorder (PTSD) Noncompliance by refusing intervention or support Schizoaffective disorder, bipolar type Depression Social History Social History Household Members: None Housing: Apartment Do you presently have visiting nurse or other home services: No Alcohol intake: current Alcohol intake frequency: holidays/special occasions only Alcohol type: beer Patient Tobacco Use Status: Current someday Tobacco user Tobacco use type: Cigarette Cigarette Packs Per Day: 0 Cigarettes Per Day: 0 Years Smoked: 1 year e-Cigarette/Vaping Use: Never Used Second Hand Smoke Exposure: Yes Substance Use Type: Marijuana Advance Directives: No Advance Directives Information Provided: No Do you have a plan to hurt others: No Plan service: No Sexual orientation: Straight/Heterosexual Physical Exam ED Vital Signs: Vital Signs - 24 hr 04/20/24 21:59 Temperature 97.3 F Pulse Rate 92 Respiratory Rate 16 Blood Pressure 188/93 H Pulse Oximetry 98 Oxygen Delivery Method Room Air BMI result Body Mass Index 33.9 Const General: alert, awake and Physically active Resp Other: Lung sounds clear throughout. Cardio Rate: regular rate Rhythm: regular rhythm Course Course Course Narrative: April 21, 2024, 1:05 a.m. patient was seen and evaluated by the crisis team. Patient continues to endorse SI. He will be placed on an inpatient bed search and Section 12. He remains on direct observation at this time. 2:00 a.m. patient signed out in stable condition pending bed placement. Medical Decision Making Medical Decision Making [facility] Narrative: 38-year-old male with a history of depression, bipolar disorder, PTSD, presents for suicidal ideation. He is hemodynamically stable and has no physical complaints. The patient is awaiting crisis evaluation. He remains on direct observation. Patient denies history of diabetes however history demonstrates elevation of glucose. Will adjust diet at this time. Differential Diagnosis Differential Diagnoses: The differential diagnosis associated with the presentation includes Bipolar PTSD Psychosis Anxiety Consult Healthcare Provider Management of the patient was discussed with: Behavioral Health Provider Lab Data [facility] Lab Attestation statement: I reviewed the patient's lab results. 04/20/24 22:34 04/20/24 22:34 Labs: Lab Results 04/20/24 04/20/24 Range/Units 22:13 22:34 WBC 10.5 (4.8-10.8) X10*3/uL RBC 5.21 (4.60-5.80) X10*6/uL Hgb 12.6 L (14.0-18.0) g/dl Hct 38.8 L (42.0-52.0) % MCV 74.5 L (80.0-98.0) fL MCH 24.2 L (27.0-33.0) pg MCHC 32.5 (31.0-36.0) g/dl RDW 14.6 (11.0-16.0) % Plt Count 300 (160-400) X10*3/uL MPV 9.0 L (9.4-12.4) fL Absolute Nucleated RBC 0.000 (0.0-0.012) X10*3/uL Nucleated RBC % (auto) 0.0 (0.0-0.2) /100WBC Sodium 139 (135-145) mmol/L Potassium 3.6 (3.3-5.1) mmol/L Chloride 105 (96-108) mmol/L Carbon Dioxide 23 (22-29) mmol/L Anion Gap 15 (12-20) BUN 12 (9-16) mg/dL Creatinine 0.86 (0.5-1.4) mg/dL Estim Creat Clear Calc 148.4 Estimated GFR > 60 Random Glucose 176 H (60-115) mg/dL Calcium 9.9 (8.4-10.2) mg/dL Total Bilirubin 0.3 (0.0-1.0) mg/dL AST 13 (5-37) U/L ALT 25 (0-40) U/L Alkaline Phosphatase 121 H (39-117) U/L Total Protein 7.0 (6.5-8.0) g/dL Albumin 4.1 (3.5-5.0) g/dL Urine Color Yellow Urine Appearance Clear Urine pH 6.0 (5.0-9.0) Ur Specific [place] >= 1.030 H (1.005-1.025) Urine Protein Negative (Neg-Trace) mg/dL Urine Glucose (UA) >=1000 H (Negative) mg/dL Urine Ketones Negative (Negative) mg/dL Urine Blood Negative (Negative) Urine Nitrite Negative (Negative) Ur Leukocyte Esterase Negative (Negative) Urine RBC 0-2 (0-2) /HPF Urine WBC 0-5 (0-5) /HPF Ur Squamous Epith Cells 0-2 (0-2) /HPF Urine Bacteria None Seen (None Seen) Hyaline Casts 0-2 (0-2) /LPF Urine Opiates Screen Not Detected (Not Detect) Ur Buprenorphine Scrn Not Detected (Not Detect) ng/mL Ur Oxycodone Screen Not Detected (Not Detect) ng/mL Urine Methadone Screen Not Detected (Not Detect) ng/mL Urine Fentanyl Screen Not Detected (Not Detect) Ur Barbiturates Screen Not Detected (Not Detect) Ur Phencyclidine Scrn Not Detected (Not Detect) Ur Amphetamines Screen Not Detected (Not Detect) U Benzodiazepines Scrn Not Detected (Not Detect) [place] 0.19 L (0.60-1.20) mmol/L Urine Cocaine Screen Not Detected (Not Detect) U Marijuana (THC) Screen Not Detected (Not Detect) Ethyl Alcohol < 10 mg/dL Social Determinants Patient?s care significantly limited by Social Determinants of Health including: Other Social Determinant of Health Discharge Plan Discharge Clinical Impression: Schizoaffective disorder, bipolar type Patient Disposition: Still a Patient Prescriptions: No Action valacyclovir 1 gram tablet 1,000 mg PO Q8H 7 Days Qty: 21 0RF ketorolac 10 mg tablet 10 mg PO Q6H PRN (Reason: pain) 5 Days Qty: 20 0RF Rx Instructions: Toradol in the ED Print Language: Sami
--- NOTE | 2024-04-21 | ECG_ITS ---
Test Reason : mwd clear Blood Pressure : / mmHG Vent. Rate : 086 BPM Atrial Rate : 086 BPM P-R Int : 166 ms QRS Dur : 126 ms QT Int : 376 ms P-R-T Axes : 061 041 044 degrees QTc Int : 449 ms Normal sinus rhythm Non-specific intra-ventricular conduction block T wave abnormality, consider lateral ischemia Abnormal ECG When compared with ECG of 13-APR-2021 10:13, Vent. rate has increased BY 31 BPM Nonspecific T wave abnormality, worse in Inferior leads Inverted T waves have replaced nonspecific T wave abnormality in Lateral leads Referred By: Shai Melo Electronically Signed By:CHANTEL PHAM MD
[2024-04-21 00:10] LABS: Ethanol < 10 mg/dL
[2024-04-21] MEDS: metFORMIN HCl 1,000 MG TABLET 1000 MG PO ×2 (09:03→20:05)
[2024-04-21] MEDS: Lithium Carbonate 300 MG CAPSULE PO (09:03)
[2024-04-21] MEDS: Sertraline HCL 50 MG TABLET PO (09:03)
[2024-04-21] MEDS: Omeprazole 20 MG CAPSULE.DR PO (09:03)
[2024-04-21 10:02] LABS: Neut%MD 63.1 %; WBCANC 11.1 X10*3/uL
--- NOTE | 2024-04-21 14:30 | MHC.CARE ---
Patient accepted to [facility] @ [address] [place] [address] for 04/22/24 ETA 9AM, N2N being completed now and RN is aware to book transport once N2N is done. Accepting provider is Dr. Michael.
--- NOTE | 2024-04-21 14:51 | PC.NURSE ---
Patient nurse to nurse given to Paula at [place] [phone]. Expected ETA is tomorrow 04/22 at 9am.
--- NOTE | 2024-04-21 17:38 | PC.NURSE ---
Patient has been calm/cooperative and pleasant throughout this RN's shift began at 15:00. Patient is talking about his favorite video games, movies, and activities, conversing with staff. He is able to make his needs known. Aware of the plan to be transferred to [place] tomorrow around 9am via EMS. RN to RN report given by previous shift RN Vesta Caputo. Pt denies complaints at this time, and is resting and watching TV in his room now. Care ongoing.
[2024-04-21 20:00] VITALS: BP 151/70; PULSE 98; RESP 18; TEMP 36.7; O2SAT 99
[2024-04-21] MEDS: Prazosin HCL 1 MG CAPSULE PO (20:04)
[2024-04-21] MEDS: traZODone HCL 100 MG TABLET PO (20:05)
[2024-04-21] MEDS: cloZAPine 100 MG TABLET 200 MG PO (20:05)
[2024-04-21] MEDS: OLANZapine 5 MG TABLET PO (20:05)
[2024-04-22 06:27] VITALS: BP 138/72; PULSE 75; RESP 18; TEMP 36.8; O2SAT 93
--- NOTE | 2024-04-22 07:20 | PC.NURSE ---
Assumed care of patient at 0645, patient appears to be in no apparent distress this am, appears to be sleeping, respirations even and unlabored. Continue plan of care for transport to inpatient facility at 0900
[2024-04-22] MEDS: metFORMIN HCl 1,000 MG TABLET 1000 MG PO (08:44)
[2024-04-22] MEDS: Omeprazole 20 MG CAPSULE.DR PO (08:44)
[2024-04-22] MEDS: Lithium Carbonate 300 MG CAPSULE PO (08:44)
[2024-04-22] MEDS: Sertraline HCL 50 MG TABLET PO (08:44)
[2024-04-22 09:12] VITALS: BP 124/82; PULSE 68; RESP 14; TEMP 36.8; O2SAT 97
== END 2024-04-22 09:13 ==
PROVIDERS: Emergency Medicine; Emergency Provider Emergency Medicine Emergency Medical Services; PCP Internal Medicine
DX: F25.0 Schizoaffective disorder, bipolar type (principal); R45.851 Suicidal ideations; F43.10 Post-traumatic stress disorder, unspecified; D64.9 Anemia, unspecified; F12.90 Cannabis use, unspecified, uncomplicated; F17.210 Nicotine dependence, cigarettes, uncomplicated; Z79.899 Other long term (current) drug therapy
CPT/HCPCS: 36415; 80053; 80178; 80307; 81001; 85027; 85048; 93005; 99285; S9485

== ENCOUNTER → 2024-04-21 19:42 | Outpatient (BNV) | payer MEDICARE, MEDICAID, SELFPAY | PROVIDERS: Emergency Provider Emergency Medicine Emergency Medical Services; PCP Internal Medicine; Visit Provider Internal Medicine Cardiovascular Disease | DX: R94.31 Abnormal electrocardiogram [ECG] [EKG] (principal) | CPT/HCPCS: 93010 ==

== ENCOUNTER 2024-05-08 12:09 | Outpatient (REF) | payer MEDICARE, MEDICAID, SELFPAY ==
[2024-05-08 13:03] LABS: MANUAL DIFF FLAG NO
[2024-05-08 13:07] LABS: Basophils Absolute Auto 0.1 X10*3/uL (0.0-0.2); Basophils Percent Auto 0.8 % (0-2); Eosinophils Absolute Auto 0.3 X10*3/uL (0.0-0.4); Eosinophils Percent Auto 2.6 % (0-4); Hematocrit 39.8 % (42.0-52.0); Hemoglobin 12.6 g/dl (14.0-18.0); Imm Gran Abs Auto 0.16 X10*3/uL (0.00-0.03); Imm Gran Pct Auto 1.4 % (0.0-0.4); Lymphocytes Absolute Auto 2.6 X10*3/uL (1.2-4.9); Mean Corpuscular HGB Conc 31.7 g/dl (31.0-36.0); Mean Corpuscular Hemoglobin 24.1 pg (27.0-33.0); Mean Corpuscular Volume 76.1 fL (80.0-98.0); Mean Platelet Volume 9.1 fL (9.4-12.4); Monocytes Absolute Auto 0.7 X10*3/uL (0.1-1.2); Monocytes Percent Auto 5.9 % (2-11); Neut%MD 66.3 %; Neutrophils Absolute Auto 7.5 x10*3/uL (2.0-8.3); Neutrophils Percent Auto 66.3 % (45-73); Platelet Count 304 X10*3/uL (160-400); Red Blood Count 5.23 X10*6/uL (4.60-5.80); Red Cell Distribution Width 14.9 % (11.0-16.0); WBCANC 11.3 X10*3/uL; White Blood Count 11.3 X10*3/uL (4.8-10.8)
== END 2024-05-08 12:10 | disposition home or self-care (01) ==
LOC: HO.10HDL 12:09
PROVIDERS: Visit Provider Clinical Nurse Specialist Psychiatric/Mental Health, Adult
DX: Z79.899 Other long term (current) drug therapy (principal)
CPT/HCPCS: 36415; 85025

== ENCOUNTER 2024-06-05 11:57 | Outpatient (REF) | payer MEDICARE, MEDICAID, SELFPAY ==
[2024-06-05 12:10] LABS: MANUAL DIFF FLAG NO
[2024-06-05 12:15] LABS: Basophils Absolute Auto 0.1 X10*3/uL (0.0-0.2); Basophils Percent Auto 0.7 % (0-2); Eosinophils Absolute Auto 0.3 X10*3/uL (0.0-0.4); Eosinophils Percent Auto 2.6 % (0-4); Hematocrit 40.1 % (42.0-52.0); Hemoglobin 12.8 g/dl (14.0-18.0); Imm Gran Abs Auto 0.08 X10*3/uL (0.00-0.03); Imm Gran Pct Auto 0.8 % (0.0-0.4); Lymphocytes Absolute Auto 2.2 X10*3/uL (1.2-4.9); Lymphocytes Percent Auto 21.6 % (20-40); Mean Corpuscular HGB Conc 31.9 g/dl (31.0-36.0); Mean Corpuscular Hemoglobin 23.8 pg (27.0-33.0); Mean Corpuscular Volume 74.7 fL (80.0-98.0); Mean Platelet Volume 8.8 fL (9.4-12.4); Monocytes Absolute Auto 0.7 X10*3/uL (0.1-1.2); Monocytes Percent Auto 6.9 % (2-11); Neutrophils Absolute Auto 6.7 x10*3/uL (2.0-8.3); Neutrophils Percent Auto 67.4 % (45-73); Platelet Count 295 X10*3/uL (160-400); Red Blood Count 5.37 X10*6/uL (4.60-5.80)
== END 2024-06-05 11:58 | disposition home or self-care (01) ==
LOC: HO.LAB 11:57
PROVIDERS: PCP Internal Medicine
DX: Z79.899 Other long term (current) drug therapy (principal)
CPT/HCPCS: 36415; 85025

== ENCOUNTER 2024-06-19 13:07 | Outpatient (REF) | payer MEDICARE, MEDICAID, SELFPAY | END 2024-06-19 13:08 | disposition home or self-care (01) | LOC: HO.XRAY 13:07 | PROVIDERS: PCP Internal Medicine; Visit Provider Internal Medicine | DX: M25.571 Pain in right ankle and joints of right foot (principal) | CPT/HCPCS: 73610 ==

== ENCOUNTER 2024-07-03 10:34 | Outpatient (REF) | payer MEDICARE, MEDICAID, SELFPAY ==
[2024-07-03 11:03] LABS: MANUAL DIFF FLAG NO
[2024-07-03 11:41] LABS: Basophils Absolute Auto 0.1 X10*3/uL (0.0-0.2); Basophils Percent Auto 0.8 % (0-2); Eosinophils Absolute Auto 0.4 X10*3/uL (0.0-0.4); Eosinophils Percent Auto 3.6 % (0-4); Hematocrit 41.4 % (42.0-52.0); Hemoglobin 12.9 g/dl (14.0-18.0); Imm Gran Abs Auto 0.14 X10*3/uL (0.00-0.03); Imm Gran Pct Auto 1.4 % (0.0-0.4); Lymphocytes Absolute Auto 2.3 X10*3/uL (1.2-4.9); Lymphocytes Percent Auto 22.3 % (20-40); Mean Corpuscular HGB Conc 31.2 g/dl (31.0-36.0); Mean Corpuscular Hemoglobin 23.7 pg (27.0-33.0); Mean Platelet Volume 9.1 fL (9.4-12.4); Monocytes Absolute Auto 0.7 X10*3/uL (0.1-1.2); Monocytes Percent Auto 6.7 % (2-11); Neutrophils Absolute Auto 6.7 x10*3/uL (2.0-8.3); Neutrophils Percent Auto 65.2 % (45-73); Platelet Count 326 X10*3/uL (160-400); Red Blood Count 5.45 X10*6/uL (4.60-5.80); White Blood Count 10.3 X10*3/uL (4.8-10.8)
== END 2024-07-03 10:35 | disposition home or self-care (01) ==
LOC: HO.LABR 10:34
PROVIDERS: PCP Internal Medicine
DX: Z79.899 Other long term (current) drug therapy (principal)
CPT/HCPCS: 36415; 85025

== ENCOUNTER 2024-08-01 10:37 | Outpatient (REF) | payer MEDICARE, MEDICAID, SELFPAY ==
[2024-08-01 11:00] LABS: MANUAL DIFF FLAG NO
[2024-08-01 11:16] LABS: Basophils Absolute Auto 0.1 X10*3/uL (0.0-0.2); Basophils Percent Auto 0.7 % (0-2); Eosinophils Absolute Auto 0.3 X10*3/uL (0.0-0.4); Eosinophils Percent Auto 3.3 % (0-4); Hematocrit 41.8 % (42.0-52.0); Hemoglobin 13.4 g/dl (14.0-18.0); Imm Gran Abs Auto 0.08 X10*3/uL (0.00-0.03); Imm Gran Pct Auto 0.8 % (0.0-0.4); Lymphocytes Absolute Auto 2.4 X10*3/uL (1.2-4.9); Mean Corpuscular HGB Conc 32.1 g/dl (31.0-36.0); Mean Corpuscular Hemoglobin 23.8 pg (27.0-33.0); Mean Corpuscular Volume 74.4 fL (80.0-98.0); Monocytes Absolute Auto 0.8 X10*3/uL (0.1-1.2); Monocytes Percent Auto 7.2 % (2-11); Neutrophils Absolute Auto 6.8 x10*3/uL (2.0-8.3); Platelet Count 301 X10*3/uL (160-400); Red Blood Count 5.62 X10*6/uL (4.60-5.80); Red Cell Distribution Width 14.8 % (11.0-16.0); White Blood Count 10.5 X10*3/uL (4.8-10.8)
== END 2024-08-01 10:38 | disposition home or self-care (01) ==
LOC: HO.LABR 10:37
PROVIDERS: PCP Internal Medicine
DX: Z79.899 Other long term (current) drug therapy (principal)
CPT/HCPCS: 36415; 85025

== ENCOUNTER 2024-08-29 10:40 | Outpatient (REF) | payer MEDICARE, MEDICAID, SELFPAY ==
[2024-08-29 13:21] LABS: MANUAL DIFF FLAG NO
[2024-08-29 13:35] LABS: Basophils Absolute Auto 0.1 X10*3/uL (0.0-0.2); Basophils Percent Auto 1.1 % (0-2); Eosinophils Absolute Auto 0.4 X10*3/uL (0.0-0.4); Eosinophils Percent Auto 4.2 % (0-4); Hematocrit 40.3 % (42.0-52.0); Hemoglobin 12.7 g/dl (14.0-18.0); Imm Gran Abs Auto 0.15 X10*3/uL (0.00-0.03); Imm Gran Pct Auto 1.5 % (0.0-0.4); Lymphocytes Absolute Auto 2.4 X10*3/uL (1.2-4.9); Lymphocytes Percent Auto 24.1 % (20-40); Mean Corpuscular HGB Conc 31.5 g/dl (31.0-36.0); Mean Corpuscular Hemoglobin 23.6 pg (27.0-33.0); Mean Platelet Volume 9.4 fL (9.4-12.4); Monocytes Absolute Auto 0.7 X10*3/uL (0.1-1.2); Monocytes Percent Auto 6.8 % (2-11); Neutrophils Absolute Auto 6.3 x10*3/uL (2.0-8.3); Neutrophils Percent Auto 62.3 % (45-73); Platelet Count 302 X10*3/uL (160-400); Red Blood Count 5.37 X10*6/uL (4.60-5.80); Red Cell Distribution Width 14.7 % (11.0-16.0)
== END 2024-08-29 10:41 | disposition home or self-care (01) ==
LOC: HO.10HDL 10:40
DX: Z79.899 Other long term (current) drug therapy (principal)
CPT/HCPCS: 36415; 85025

== ENCOUNTER 2024-09-25 12:32 | Outpatient (REF) | payer MEDICARE, MEDICAID, SELFPAY ==
[2024-09-25 12:49] LABS: MANUAL DIFF FLAG NO
[2024-09-25 13:44] LABS: Basophils Absolute Auto 0.1 X10*3/uL (0.0-0.2); Basophils Percent Auto 0.5 % (0-2); Eosinophils Absolute Auto 0.3 X10*3/uL (0.0-0.4); Eosinophils Percent Auto 2.7 % (0-4); Hematocrit 41.4 % (42.0-52.0); Hemoglobin 13.2 g/dl (14.0-18.0); Imm Gran Abs Auto 0.09 X10*3/uL (0.00-0.03); Imm Gran Pct Auto 0.7 % (0.0-0.4); Lymphocytes Absolute Auto 2.4 X10*3/uL (1.2-4.9); Lymphocytes Percent Auto 19.5 % (20-40); Mean Corpuscular HGB Conc 31.9 g/dl (31.0-36.0); Mean Corpuscular Hemoglobin 23.5 pg (27.0-33.0); Mean Corpuscular Volume 73.8 fL (80.0-98.0); Mean Platelet Volume 9.2 fL (9.4-12.4); Monocytes Absolute Auto 0.8 X10*3/uL (0.1-1.2); Monocytes Percent Auto 6.6 % (2-11); Neutrophils Absolute Auto 8.5 x10*3/uL (2.0-8.3); Platelet Count 323 X10*3/uL (160-400); Red Blood Count 5.61 X10*6/uL (4.60-5.80); Red Cell Distribution Width 15.5 % (11.0-16.0); White Blood Count 12.1 X10*3/uL (4.8-10.8)
== END 2024-09-25 12:33 | disposition home or self-care (01) ==
LOC: HO.LABR 12:32
PROVIDERS: PCP Internal Medicine
DX: Z79.899 Other long term (current) drug therapy (principal)
CPT/HCPCS: 36415; 85025

== ENCOUNTER 2024-10-30 13:00 | Outpatient (REF) | payer MEDICARE, MEDICAID, SELFPAY ==
--- OUTSIDE RECORDS SUMMARY | 2024-10-30 13:54 | XMS_ITS | Clinical Summary ---
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 Active metFORMIN (GLUCOPHAGE) 500 MG tabletIndications:Ty pe 2 diabetes mellitus without complication, without long-term current use of insulin (HCC) Take 2 tablets (1,000 mg total) by mouth 2 (two) times a day with meals. 120 tablet 07/02/2023 Active amoxicillin-clavulan ate (AUGMENTIN) 875-125 MG per tabletIndications:De ntal abscess Take 1 tablet by mouth 2 (two) times a day. 14 tablet 07/02/2023 Active Active Problems Problem Noted Date Diagnosed Date Diabetes mellitus 07/01/2023 Abnormal EKG 07/01/2023 Hypophosphatemia 07/01/2023 Dental abscess 06/30/2023 Family History Medical History Relation Name Comments No Known Problems Father No Known Problems Mother Relation Name Status Comments Father Mother Social History Tobacco Use Types Packs/Day Years Used Date Smoking Tobacco: Never Smokeless Tobacco: Never Tobacco Cessation:Counseling Given: Not Answered Alcohol Use Standard Drinks/Week Comments Not Currently 0 (1 standard drink = 0.6 oz pur e alcohol) Sex and Gender Information Value Date Recorded Sex Assigned at Male 06/30/2023 6:08 PM EDT Gender Identity Male 06/30/2023 6:08 PM EDT Sexual Orientation Heterosexual (straight) 06/30 6:08 PM EDT Last Filed Vital Signs Vital Sign Reading Time Taken Comments Blood Pressure 121/66 07/02/2023 4:37 AM EDT Pulse 83 07/02/2023 4:37 AM EDT Temperature 36.7 ??C (98 ??F) 07/02/2023 4:37 AM EDT Respiratory Rate 20 07/02/2023 4:37 AM EDT Oxygen Saturation 95% 07/02/2023 4:37 AM EDT Inhaled Oxygen Concentration - - Weight - - Height - - Body Mass Index - - Plan of Treatment Health Maintenance Due Date Last Done Comments Hepatitis C Virus Screening 1983 Foot Exam 1993 Lipid Panel 1993 Ophthalmology Exam 1993 HIV Screening 1996 Microalbumin/Creatinine Rati o Urine 2001 DTaP/Tdap/Td Vaccines (1 - Tdap) 2002 Hepatitis B Vaccines (1 of 3 - 19+ 3-dose series) 2002 Pneumococcal Vaccine: Pediatric (0-5 Years) and At-Risk Patients (6 to 49 Years) (1 of 2 - PCV) 2002 Diabetic Self-Management Training (DSMT) 07/01/2023 Hemoglobin A1C 10/01/2023 07/01/2023 Influenza Vaccine 04/12/2024 COVID-19 Vaccine (1 - 2023-2 5 season) 2024 Creatinine with GFR 07/01/2024 07/01/2023, 06/30/2023, 06/30/2023 Medical Nutrition Therapy (MNT) 09/12/2024 HPV Vaccines Aged Out No longer eligi ble based on patient's age to complete this topic Procedures Procedure Name Priority Date/Time Associated Diagnosis Comments HEMOGLOBIN A1C WITH ESTIMATED AVERAGE GLUCOSE STAT 07/01/2023 7:23 AM EDT COMPREHENSIVE METABOLIC PANEL STAT 07/01/2023 7:23 AM EDT from Last 3 Months or Most Recently Relevant to Health Maintenance Results * (ABNORMAL) Hemoglobin A1c with Estimated Average Glucose (07/01/2023 7:23 AM EDT) Hemoglobin A1C 12.3(H) <5.7 % 07/01/2023 8:48 AM EDT [facility] Comment: A1c% ? Interpretation 5.7 - 6.0 ?Increase risk of diabetes 6.1 - 6.4 ?Higher risk of diabetes > or = 6.5 ?? Consistent with diabetes Diabetes Care, 33(Supp 1):S1-S61, 2010 Estimated Average Glucose 306 mg/dL 07/01/2023 8:48 AM [facility] Blood specimen (specimen) Blood specimen / Unknown 07/01/2023 7:23 AM EDT 07/01/2023 8:06 AM EDT Brad Panda MD LAB BLOOD ORDERABLES HOSPITAL LAB See Below [facility] [address] [place] [address] * (ABNORMAL) Comprehensive Metabolic Panel (07/01/2023 7:23 AM EDT) Glucose 219(H) 65 - 99 mg/dL 07/01/2023 8:33 AM [facility] Comment:Fasting: <100 mg/dL, Non-Fasting: <200 mg/dL (ADA 2005) Blood Urea Nitrogen (BUN) 7(L) 8 - 21 mg/dL 07/01/2023 8:33 AM [facility] Creatinine 0.6 0.5 - 1.3 mg/dL 07/01/2023 8:33 AM [facility] eGFR >90 >59 07/01/2023 8:33 AM [facility] Comment:CKD-EPI (2020) in mL /min/1.73 sq meters. Sodium 139 136 - 145 mmol/L 07/01/2023 8:33 AM [facility] Potassium 3.8 3.4 - 5.3 mmol/L 07/01/2023 8:33 AM [facility] Chloride 104 98 - 107 mmol/L 07/01/2023 8:33 AM [facility] CO2 19(L) 22 - 33 mmol/L 07/01/2023 8:33 AM [facility] Calcium 8.7 8.7 - 10.5 mg/dL 07/01/2023 8:33 AM [facility] Alkaline Phosphatase 130(H) 45 - 128 U/L 07/01/2023 8:33 AM [facility] Aspartate Aminotrans (AST) 17 10 - 55 U/L 07/01/2023 8:33 AM EDT [facility] Alanine Aminotrans (ALT) 30 10 - 55 U/L 07/01/2023 8:33 AM EDT [facility] Bilirubin, Total 0.4 0.2 - 1.0 mg/dL 07/01/2023 8:33 AM EDT [facility] Protein, Total 6.5 6.3 - 8.3 g/dL 07/01/2023 8:33 AM EDT [facility] Albumin 4.0 3.5 - 5.0 g/dL 07/01/2023 8:33 AM EDT [facility] BUN/Creatinine Ratio 12 10.0 - 25.0 Ratio 07/01/2023 8:33 AM EDT [facility] Globulin 2.5 1.5 - 3.9 g/dL 07/01/2023 8:33 AM T [facility] Albumin/Globulin Ratio 1.6 1.0 - 3.0 Ratio 07/01/2023 8:33 AM EDT [facility] Anion Gap 16 7 - 17 07/01/2023 8:33 AM EDT [facility] Blood specimen (specimen) (Plasma/Serum) 07/01/2023 7:23 AM EDT 07/01/2023 8:06 AM EDT Brad Panda MD LAB BLOOD ORDERABLES HOSPITAL LAB See Below [facility] [address] [place] [address] from Last 3 Months or Most Recently Relevant to Health Maintenance Advance Directives * Full Code (Latest Code Status on File) Date Activated Date Inactivated Comments 06/30/2023 8:41 PM Question Answer Comments Decision Thoroughly Discussed with: Patient
--- OUTSIDE RECORDS SUMMARY | 2024-10-30 13:54 | XMS_ITS | Clinical Summary ---
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 Name Role Phone Unavailable Primary Care Provider Unavailabl e Social History Tobacco Use Types Packs/Day Years Used Date Smoking Tobacco: Never Assessed Sex and Gender Information Value Date Recorded Sex Assigned at Not on file Legal Sex Male 1:29 AM EST Gender Identity Not on file Sexual Orientation Not on file Plan of Treatment Health Maintenance Due Date Last Done Comments DTaP,Tdap,and Td Vaccines (1 - Tdap) 2002 Hepatitis B Vaccines (1 of 3 - 19+ 3-dose series) 2002 COVID-19 Vaccine (2023-2 5 season) 2024 Influenza Vaccine (#1) 2024 HIB Vaccines Aged Out No longer eligi ble based on patient's age to complete this topic HPV Vaccines Aged Out No longer eligi ble based on patient's age to complete this topic Hepatitis A Vaccines Aged Out No long er eligible based on patient's age to complete this topic IPV Vaccines Aged Out No longer eligi ble based on patient's age to complete this topic MMR Vaccines Aged Out No longer eligi ble based on patient's age to complete this topic Meningococcal ACWY Vaccine Aged Out N o longer eligible based on patient's age to complete this topic Meningococcal B Vacine Aged Out No lo nger eligible based on patient's age to complete this topic Pneumococcal Vaccine: Pediat rics (0 to 5 Years) and At-Risk Patients (6 to 64 Years) Aged Out No longer eligible b ased on patient's age to complete this topic RSV Immunization Patients Un saurabh 20 months Aged Out No longer eligible b ased on patient's age to complete this topic Varicella Vaccines Aged Out No longer eligible based on patient's age to complete this topic
[2024-10-30 13:59] LABS: Basophils Absolute Auto 0.1 X10*3/uL (0.0-0.2); Basophils Percent Auto 0.6 % (0-2); Eosinophils Absolute Auto 0.3 X10*3/uL (0.0-0.4); Eosinophils Percent Auto 3.2 % (0-4); Hematocrit 41.8 % (42.0-52.0); Hemoglobin 13.3 g/dl (14.0-18.0); Imm Gran Abs Auto 0.09 X10*3/uL (0.00-0.03); Imm Gran Pct Auto 0.9 % (0.0-0.4); Lymphocytes Absolute Auto 2.8 X10*3/uL (1.2-4.9); Lymphocytes Percent Auto 29.2 % (20-40); MANUAL DIFF FLAG NO; Mean Corpuscular HGB Conc 31.8 g/dl (31.0-36.0); Mean Corpuscular Hemoglobin 23.6 pg (27.0-33.0); Mean Corpuscular Volume 74.2 fL (80.0-98.0); Mean Platelet Volume 9.3 fL (9.4-12.4); Monocytes Absolute Auto 0.5 X10*3/uL (0.1-1.2); Monocytes Percent Auto 5.2 % (2-11); Neutrophils Absolute Auto 5.8 x10*3/uL (2.0-8.3); Neutrophils Percent Auto 60.9 % (45-73); Platelet Count 313 X10*3/uL (160-400); Red Blood Count 5.63 X10*6/uL (4.60-5.80); Red Cell Distribution Width 14.8 % (11.0-16.0); White Blood Count 9.6 X10*3/uL (4.8-10.8)
== END 2024-10-30 13:01 | disposition home or self-care (01) ==
LOC: HO.LABR 13:00
PROVIDERS: PCP Internal Medicine
DX: Z79.899 Other long term (current) drug therapy (principal)
CPT/HCPCS: 36415; 85025

== ENCOUNTER 2024-11-20 12:37 | Outpatient (REF) | payer MEDICARE, MEDICAID, SELFPAY ==
[2024-11-20 13:03] LABS: MANUAL DIFF FLAG NO
[2024-11-20 13:21] LABS: Basophils Absolute Auto 0.1 X10*3/uL (0.0-0.2); Basophils Percent Auto 0.8 % (0-2); Eosinophils Absolute Auto 0.2 X10*3/uL (0.0-0.4); Eosinophils Percent Auto 2.2 % (0-4); Hematocrit 44.3 % (42.0-52.0); Imm Gran Abs Auto 0.14 X10*3/uL (0.00-0.03); Imm Gran Pct Auto 1.4 % (0.0-0.4); Lymphocytes Absolute Auto 2.4 X10*3/uL (1.2-4.9); Lymphocytes Percent Auto 23.7 % (20-40); Mean Corpuscular HGB Conc 31.6 g/dl (31.0-36.0); Mean Corpuscular Hemoglobin 23.6 pg (27.0-33.0); Mean Corpuscular Volume 74.6 fL (80.0-98.0); Mean Platelet Volume 9.1 fL (9.4-12.4); Monocytes Absolute Auto 0.7 X10*3/uL (0.1-1.2); Monocytes Percent Auto 6.3 % (2-11); Neutrophils Absolute Auto 6.7 x10*3/uL (2.0-8.3); Neutrophils Percent Auto 65.6 % (45-73); Platelet Count 275 X10*3/uL (160-400); Red Blood Count 5.94 X10*6/uL (4.60-5.80); Red Cell Distribution Width 15.3 % (11.0-16.0); White Blood Count 10.2 X10*3/uL (4.8-10.8)
--- OUTSIDE RECORDS SUMMARY | 2024-11-20 15:11 | XMS_ITS | Clinical Summary ---
Author Organization [facility] Address [address] [place] [address] Care Team Providers Care Mail Teller Name Role Phone Unavailable Primary Care Provider [...]
--- OUTSIDE RECORDS SUMMARY | 2024-11-20 15:11 | XMS_ITS ---
Author Name [facility] Organization Unknown Encounters Encounter Type Encounter Reason Primary Diagnosis Location Date Inpatient Periapical abscess without sinus Periapical abscess without sinus [facility] 06/30/2023 Ambulatory [facility] 06/30/2023
--- OUTSIDE RECORDS SUMMARY | 2024-11-20 15:11 | XMS_ITS | Clinical Summary ---
Author Organization Formerly [facility] Address [address] [place] [address] Care Team Providers Care Health Care Coach Name Role Phone Unavailable Primary Care Provider [...] 12.3(H) <5.7 % 07/01/2023 8:48 AM EDT [facility] Comment: A1c% ? Interpretation 5.7 - 6.0 ?Increase risk of diabetes 6.1 - 6.4 ?Higher risk of diabetes > or = 6.5 ?? Consistent with diabetes Diabetes Care, 33(Supp 1):S1-S61, 2010 Estimated Average Glucose 306 mg/dL 07/01/2023 8:48 AM [facility] Blood specimen (specimen) Blood specimen / Unknown 07/01/2023 7:23 AM EDT 07/01/2023 8:06 AM EDT Brad Panda MD LAB BLOOD ORDERABLES HOSPITAL LAB See Below [facility] [address] [place] [address] * (ABNORMAL) Comprehensive Metabolic Panel (07/01/2023 7:23 AM EDT) Glucose 219(H) 65 - 99 mg/dL 07/01/2023 8:33 AM [facility] Comment:Fasting: <100 mg/dL, Non-Fasting: <200 mg/dL (ADA 2005) Blood Urea Nitrogen (BUN) 7(L) 8 - 21 mg/dL 07/01/2023 8:33 AM [facility] Creatinine 0.6 0.5 - 1.3 mg/dL 07/01/2023 8:33 AM [facility] eGFR >90 >59 07/01/2023 8:33 AM [facility] Comment:CKD-EPI (2020) in mL /min/1.73 sq meters. Sodium 139 136 - 145 mmol/L 07/01/2023 8:33 AM [facility] Potassium 3.8 3.4 - 5.3 mmol/L 07/01/2023 8:33 AM [facility] Chloride 104 98 - 107 mmol/L 07/01/2023 8:33 AM [facility] CO2 19(L) 22 - 33 mmol/L 07/01/2023 8:33 AM [facility] Calcium 8.7 8.7 - 10.5 mg/dL 07/01/2023 8:33 AM [facility] Alkaline Phosphatase 130(H) 45 - 128 U/L 07/01/2023 8:33 AM [facility] Aspartate Aminotrans (AST) 17 10 - 55 U/L 07/01/2023 8:33 AM EDT [facility] Alanine Aminotrans (ALT) 30 10 - 55 U/L 07/01/2023 8:33 AM EDT [facility] Bilirubin, Total 0.4 0.2 - 1.0 mg/dL 07/01/2023 8:33 AM EDT [facility] Protein, Total 6.5 6.3 - 8.3 g/dL 07/01/2023 8:33 AM EDT [facility] Albumin 4.0 3.5 - 5.0 g/dL 07/01/2023 8:33 AM EDT [facility] BUN/Creatinine Ratio 12 10.0 - 25.0 Ratio 07/01/2023 8:33 AM EDT [facility] Globulin 2.5 1.5 - 3.9 g/dL 07/01/2023 8:33 AM T [facility] Albumin/Globulin Ratio 1.6 1.0 - 3.0 Ratio 07/01/2023 8:33 AM EDT [facility] Anion Gap 16 7 - 17 07/01/2023 8:33 AM EDT [facility] Blood specimen (specimen) (Plasma/Serum) 07/01/2023 7:23 AM EDT 07/01/2023 8:06 AM EDT Brad Panda MD LAB BLOOD ORDERABLES HOSPITAL LAB See Below [facility] [address] [place] [address] from Last 3 Months or Most Recently Relevant to Health Maintenance Advance Directives * Full Code (Latest Code Status on File) Date Activated Date Inactivated Comments 06/30/2023 8:41 PM Question Answer Comments Decision Thoroughly Discussed with: Patient
== END 2024-11-20 12:38 | disposition home or self-care (01) ==
LOC: HO.LABR 12:37
PROVIDERS: PCP Internal Medicine
DX: Z79.899 Other long term (current) drug therapy (principal)
CPT/HCPCS: 36415; 85025

== ENCOUNTER 2024-12-27 14:53 | Outpatient (REF) | payer MEDICARE, MEDICAID, SELFPAY ==
[2024-12-27 15:07] LABS: MANUAL DIFF FLAG NO
[2024-12-27 16:05] LABS: Basophils Absolute Auto 0.1 X10*3/uL (0.0-0.2); Basophils Percent Auto 0.7 % (0-2); Eosinophils Absolute Auto 0.3 X10*3/uL (0.0-0.4); Eosinophils Percent Auto 2.8 % (0-4); Hematocrit 40.7 % (42.0-52.0); Hemoglobin 12.9 g/dl (14.0-18.0); Imm Gran Abs Auto 0.07 X10*3/uL (0.00-0.03); Imm Gran Pct Auto 0.7 % (0.0-0.4); Lymphocytes Absolute Auto 2.6 X10*3/uL (1.2-4.9); Lymphocytes Percent Auto 23.8 % (20-40); Mean Corpuscular HGB Conc 31.7 g/dl (31.0-36.0); Mean Corpuscular Hemoglobin 23.8 pg (27.0-33.0); Mean Platelet Volume 9.5 fL (9.4-12.4); Monocytes Absolute Auto 0.7 X10*3/uL (0.1-1.2); Monocytes Percent Auto 6.5 % (2-11); Neutrophils Percent Auto 65.5 % (45-73); Platelet Count 301 X10*3/uL (160-400); Red Blood Count 5.43 X10*6/uL (4.60-5.80); Red Cell Distribution Width 15.2 % (11.0-16.0); White Blood Count 10.7 X10*3/uL (4.8-10.8)
[2024-12-27 16:13] LABS: Lithium < 0.10 mmol/L (0.60-1.20)
[2024-12-27 16:27] LABS: Albumin Level 4.1 g/dL (3.5-5.0); Anion Gap 13 (12-20); Blood Urea Nitrogen 8 mg/dL (9-16); Calcium 9.2 mg/dL (8.4-10.2); Carbon Dioxide 27 mmol/L (22-29); Chloride 105 mmol/L (96-108); Estimated Glomerular Filt Rate > 60; Glucose Random 147 mg/dL (60-115); Phosphorus 3.2 mg/dL (2.7-4.5); Potassium 3.9 mmol/L (3.3-5.1); Sodium 141 mmol/L (135-145)
[2024-12-27 16:39] LABS: Free T4 (Free Thyroxine) 0.91 ng/dL (0.71-1.85); Thyroid Stimulating Hormone 1.94 uIU/mL (0.32-4.0)
--- OUTSIDE RECORDS SUMMARY | 2024-12-27 17:46 | XMS_ITS | Clinical Summary ---
Author Organization [facility] Address [address] [place] [address] Care Team Providers Care Medical Claims Manager Name Role Phone Unavailable Primary Care Provider [...] Vaccine (2023-2 5 season) 2024 Influenza Vaccine (Season Ended) 2025 HIB Vaccines Aged Out No longer eligi [...] age to complete this topic Meningococcal B Vaccine Aged Out No l onger eligible based on patient's age to complete [...]
--- OUTSIDE RECORDS SUMMARY | 2024-12-27 17:46 | XMS_ITS | Clinical Summary ---
Author Organization Formerly [facility] Address [address] [place] [address] Care Team Providers Care Beauty Counselor Name Role Phone Unavailable Primary Care Provider Unavailabl e Allergies No known active allergies Medications prazosin (MINIPRESS) 1 MG capsule Take 1 capsule (1 mg total) by mouth nightly. Active metFORMIN (GLUCOPHAGE) 500 MG tabletIndicatio ns:Type 2 diabetes mellitus without complication, without long-term current use of insulin (HCC) Take 2 tablets (1,000 mg total) by mouth 2 (two) times a day with meals. 120 tablet 07/02/2023 Active amoxicillin-cla vulanate (AUGMENTIN) 875-125 MG per tabletIndicatio ns:Dental abscess Take 1 tablet by mouth 2 [...] Assigned at Male 06/30/2023 6:08 PM EDT Legal Sex Male 2:55 PM EDT Gender Identity Male 06/30/2023 6:08 [...] 12.3(H) <5.7 % 07/01/2023 8:48 AM EDT [facility] Comment: A1c% ? Interpretation 5.7 - 6.0 ?Increase risk of diabetes 6.1 - 6.4 ?Higher risk of diabetes > or = 6.5 ?? Consistent with diabetes Diabetes Care, 33(Supp 1):S1-S61, 2009 Estimated Average Glucose 306 mg/dL 07/01/2023 8:48 AM [facility] Blood specimen (specimen) Blood specimen / Unknown 07/01/2023 7:23 AM EDT 07/01/2023 8:06 AM EDT us Brad Panda MD LAB BLOOD ORDERABLES Final R esult HOSPITAL LAB See Below [address] [address] * (ABNORMAL) Comprehensive Metabolic Panel (07/01/2023 7:23 AM EDT) Glucose 219(H) 65 - 99 mg/dL 07/01/2023 8:33 AM [facility] Comment:Fasting: <100 mg/dL, Non-Fasting: <200 mg/dL (ADA 2004) Blood Urea Nitrogen (BUN) 7(L) 8 - 21 mg/dL 07/01/2023 8:33 AM [facility] Creatinine 0.6 0.5 - 1.3 mg/dL 07/01/2023 8:33 AM [facility] eGFR >90 >59 07/01/2023 8:33 AM [facility] Comment:CKD-EPI (2020) in mL /min/1.73 sq meters. Sodium 139 136 - 145 mmol/L 07/01/2023 8:33 AM [facility] Potassium 3.8 3.4 - 5.3 mmol/L 07/01/2023 8:33 AM [facility] Chloride 104 98 - 107 mmol/L 07/01/2023 8:33 AM [facility] CO2 19(L) 22 - 33 mmol/L 07/01/2023 8:33 AM [facility] Calcium 8.7 8.7 - 10.5 mg/dL 07/01/2023 8:33 AM [facility] Alkaline Phosphatase 130(H) 45 - 128 U/L 07/01/2023 8:33 AM EDT [facility] Aspartate Aminotrans (AST) 17 10 - 55 U/L 07/01/2023 8:33 AM EDT [facility] Alanine Aminotrans (ALT) 30 10 - 55 U/L 07/01/2023 8:33 AM EDT [facility] Bilirubin, Total 0.4 0.2 - 1.0 mg/dL 07/01/2023 8:33 AM EDT [facility] Protein, Total 6.5 6.3 - 8.3 g/dL 07/01/2023 8:33 AM EDT [facility] Albumin 4.0 3.5 - 5.0 g/dL 07/01/2023 8:33 AM EDT [facility] BUN/Creatinine Ratio 12 10.0 - 25.0 Ratio 07/01/2023 8:33 AM EDT [facility] Globulin 2.5 1.5 - 3.9 g/dL 07/01/2023 8:33 AM EDT [facility] Albumin/Globulin Ratio 1.6 1.0 - 3.0 Ratio 07/01/2023 8:33 AM EDT [facility] Anion Gap 16 7 - 17 07/01/2023 8:33 AM T [facility] Blood specimen (specimen) (Plasma/Serum) 07/01/2023 7:23 AM EDT 07/01/2023 8:06 AM EDT us Brad Panda MD LAB BLOOD ORDERABLES Final R esult HOSPITAL LAB See Below [address] [address] from Last 3 Months or Most Recently Relevant to Health Maintenance Insurance [facility] MEDICARE PART A & B Advance Directives * Full Code (Latest Code Status on File) Date Activated Date Inactivated Comments 06/30/2023 8:41 PM Question Answer Comments Decision Thoroughly Discussed with: Patient
== END 2024-12-27 14:54 | disposition home or self-care (01) ==
LOC: HO.LABR 14:53
DX: Z79.899 Other long term (current) drug therapy (principal)
CPT/HCPCS: 36415; 80048; 80178; 82040; 84100; 84439; 84443; 85025

== ENCOUNTER 2025-01-30 09:44 | Outpatient (REF) | payer MEDICARE, MEDICAID, SELFPAY ==
--- OUTSIDE RECORDS SUMMARY | 2025-01-30 11:03 | XMS_ITS | Clinical Summary ---
Author Organization [facility] Address [address] [place] [address] Care Team Providers Care Nailhead Setter Name Role Phone Unavailable Primary Care Provider [...]
--- OUTSIDE RECORDS SUMMARY | 2025-01-30 11:03 | XMS_ITS | Clinical Summary ---
Author Organization [facility] Address [address] [place] [address] Care Team Providers Care Music Composer Name Role Phone Unavailable Primary Care Provider [...] Training (DSMT) 07/01/2023 Hemoglobin A1C 10/01/2023 07/01/2023 COVID-19 Vaccine (1 - 2023-2 5 season) 2024 Creatinine with GFR 07/01/2024 07/01/2023, 06/30/2023, 06/30/2023 Medical Nutrition Therapy (MNT) 09/12/2024 Influenza Vaccine 04/12/2025 HPV Vaccines Aged Out No longer eligi [...] 12.3(H) <5.7 % 07/01/2023 8:48 AM EDT [facility] Comment: A1c% ? Interpretation 5.7 - 6.0 ?Increase risk of diabetes 6.1 - 6.4 ?Higher risk of diabetes > or = 6.5 ?? Consistent with diabetes Diabetes Care, 33(Supp 1):S1-S61, 2009 Estimated Average Glucose 306 mg/dL 07/01/2023 8:48 AM [facility] Blood specimen (specimen) Blood specimen / Unknown 07/01/2023 7:23 AM EDT 07/01/2023 8:06 AM EDT us Brad Panda MD LAB BLOOD ORDERABLES Final R esult HOSPITAL LAB See Below [address] [address] * (ABNORMAL) Comprehensive Metabolic Panel (07/01/2023 7:23 AM EDT) Glucose 219(H) 65 - 99 mg/dL 07/01/2023 8:33 AM [facility] Comment:Fasting: <100 mg/dL, Non-Fasting: <200 mg/dL (ADA 2004) Blood Urea Nitrogen (BUN) 7(L) 8 - 21 mg/dL 07/01/2023 8:33 AM [facility] Creatinine 0.6 0.5 - 1.3 mg/dL 07/01/2023 8:33 AM [facility] eGFR >90 >59 07/01/2023 8:33 AM [facility] Comment:CKD-EPI (2020) in mL /min/1.73 sq meters. Sodium 139 136 - 145 mmol/L 07/01/2023 8:33 AM [facility] Potassium 3.8 3.4 - 5.3 mmol/L 07/01/2023 8:33 AM [facility] Chloride 104 98 - 107 mmol/L 07/01/2023 8:33 AM [facility] CO2 19(L) 22 - 33 mmol/L 07/01/2023 8:33 AM [facility] Calcium 8.7 8.7 - 10.5 mg/dL 07/01/2023 8:33 AM [facility] Alkaline Phosphatase 130(H) 45 - 128 U/L 07/01/2023 8:33 AM EDT [facility] Aspartate Aminotrans (AST) 17 10 - 55 U/L 07/01/2023 8:33 AM EDT [facility] Alanine Aminotrans (ALT) 30 10 - 55 U/L 07/01/2023 8:33 AM EDT [facility] Bilirubin, Total 0.4 0.2 - 1.0 mg/dL 07/01/2023 8:33 AM EDT [facility] Protein, Total 6.5 6.3 - 8.3 g/dL 07/01/2023 8:33 AM EDT [facility] Albumin 4.0 3.5 - 5.0 g/dL 07/01/2023 8:33 AM EDT [facility] BUN/Creatinine Ratio 12 10.0 - 25.0 Ratio 07/01/2023 8:33 AM EDT [facility] Globulin 2.5 1.5 - 3.9 g/dL 07/01/2023 8:33 AM EDT [facility] Albumin/Globulin Ratio 1.6 1.0 - 3.0 Ratio 07/01/2023 8:33 AM EDT [facility] Anion Gap 16 7 - 17 07/01/2023 8:33 AM T [facility] Blood specimen (specimen) (Plasma/Serum) 07/01/2023 7:23 AM EDT 07/01/2023 8:06 AM EDT us Brad Panda MD LAB BLOOD ORDERABLES Final R esult HOSPITAL LAB See Below [address] [address] from Last 3 Months or Most Recently Relevant to Health Maintenance Insurance [facility] MEDICARE PART A & B Advance Directives * Full Code (Latest Code Status on File) Date Activated Date Inactivated Comments 06/30/2023 8:41 PM Question Answer Comments Decision Thoroughly Discussed with: Patient
[2025-01-30 11:44] LABS: MANUAL DIFF FLAG NO
[2025-01-30 11:58] LABS: Basophils Absolute Auto 0.1 X10*3/uL (0.0-0.2); Basophils Percent Auto 0.8 % (0-2); Eosinophils Absolute Auto 0.2 X10*3/uL (0.0-0.4); Eosinophils Percent Auto 2.6 % (0-4); Hemoglobin 13.3 g/dl (14.0-18.0); Imm Gran Abs Auto 0.08 X10*3/uL (0.00-0.03); Imm Gran Pct Auto 0.9 % (0.0-0.4); Lymphocytes Absolute Auto 1.8 X10*3/uL (1.2-4.9); Lymphocytes Percent Auto 19.1 % (20-40); Mean Corpuscular HGB Conc 31.7 g/dl (31.0-36.0); Mean Corpuscular Hemoglobin 23.6 pg (27.0-33.0); Mean Corpuscular Volume 74.6 fL (80.0-98.0); Mean Platelet Volume 9.1 fL (9.4-12.4); Monocytes Absolute Auto 0.7 X10*3/uL (0.1-1.2); Monocytes Percent Auto 7.4 % (2-11); Neutrophils Absolute Auto 6.4 x10*3/uL (2.0-8.3); Neutrophils Percent Auto 69.2 % (45-73); Platelet Count 294 X10*3/uL (160-400); Red Blood Count 5.63 X10*6/uL (4.60-5.80); Red Cell Distribution Width 15.5 % (11.0-16.0); White Blood Count 9.3 X10*3/uL (4.8-10.8)
== END 2025-01-30 09:45 | disposition home or self-care (01) ==
LOC: HO.10HDL 09:44
DX: Z79.899 Other long term (current) drug therapy (principal)
CPT/HCPCS: 36415; 85025

== ENCOUNTER 2025-03-05 10:44 | Outpatient (REF) | payer MEDICARE, MEDICAID, SELFPAY ==
[2025-03-05 10:57] LABS: MANUAL DIFF FLAG NO
[2025-03-05 11:35] LABS: Basophils Absolute Auto 0.1 X10*3/uL (0.0-0.2); Basophils Percent Auto 0.8 % (0-2); Eosinophils Absolute Auto 0.3 X10*3/uL (0.0-0.4); Eosinophils Percent Auto 2.5 % (0-4); Hemoglobin 12.9 g/dl (14.0-18.0); Imm Gran Abs Auto 0.11 X10*3/uL (0.00-0.03); Imm Gran Pct Auto 1.1 % (0.0-0.4); Lymphocytes Absolute Auto 2.1 X10*3/uL (1.2-4.9); Mean Corpuscular HGB Conc 31.5 g/dl (31.0-36.0); Mean Corpuscular Hemoglobin 23.6 pg (27.0-33.0); Mean Corpuscular Volume 75.1 fL (80.0-98.0); Mean Platelet Volume 9.3 fL (9.4-12.4); Monocytes Absolute Auto 0.7 X10*3/uL (0.1-1.2); Monocytes Percent Auto 7.3 % (2-11); Neutrophils Absolute Auto 6.7 x10*3/uL (2.0-8.3); Neutrophils Percent Auto 67.3 % (45-73); Platelet Count 311 X10*3/uL (160-400); Red Blood Count 5.46 X10*6/uL (4.60-5.80); Red Cell Distribution Width 15.4 % (11.0-16.0)
--- OUTSIDE RECORDS SUMMARY | 2025-03-05 12:05 | XMS_ITS | Clinical Summary ---
Author Organization [facility] Address [address] [place] [address] Care Team Providers Care Fast Brim Pouncer Name Role Phone Unavailable Primary Care Provider [...]
== END 2025-03-05 10:45 | disposition home or self-care (01) ==
LOC: HO.LABR 10:44
DX: Z79.899 Other long term (current) drug therapy (principal)
CPT/HCPCS: 36415; 85025

== ENCOUNTER 2025-04-02 12:37 | Outpatient (REF) | payer MEDICARE, MEDICAID, SELFPAY ==
[2025-04-02 13:14] LABS: MANUAL DIFF FLAG NO
--- OUTSIDE RECORDS SUMMARY | 2025-04-02 13:39 | XMS_ITS | Clinical Summary ---
Author Organization [facility] ity Address [address] [place] [address] Care Team Providers Care Well Logging Operator Mud Analysis Name Role Phone Unavailable Primary Care Provider [...] - 19+ 3-dose series) 2002 COVID-19 Vaccine ( - 2023-2 5 season) 2024 Depression Screening 09/12/2024 Influenza Vaccine (#1) 2025 HIB Vaccines Aged Out No longer [...] 5 Years) and At-Risk Patients (6 to 49 Years) Aged Out No longer eligible b ased on patient's age to complete this topic RSV Immunization Patients Un saurabh 20 months Aged Out No longer eligible b ased on patient's age to complete this topic Varicella Vaccines Aged Out No longer eligible based on patient's age to complete this topic
--- OUTSIDE RECORDS SUMMARY | 2025-04-02 13:39 | XMS_ITS | Clinical Summary ---
Author Organization [facility] Address [address] [place] [address] Care Team Providers Care Butt Welder Name Role Phone Unavailable Primary Care Provider [...] 83 07/02/2023 4:37 AM EDT Temperature 36.7 C (98 F) 07/02/2023 4:37 AM EDT Respiratory Rate 20 [...] 12.3(H) <5.7 % 07/01/2023 8:48 AM EDT [facility] Comment: A1c% Interpretation 5.7 - 6.0 Increase risk of diabetes 6.1 - 6.4 Higher risk of diabetes > or = 6.5 Consistent with diabetes Diabetes Care, 33(Supp 1):S1-S61, 2010 Estimated Average Glucose 306 mg/dL 07/01/2023 8:48 AM [facility] Blood specimen (specimen) Blood specimen / Unknown 07/01/2023 7:23 AM EDT 07/01/2023 8:06 AM EDT us Brad Panda MD LAB BLOOD ORDERABLES Final R esult HOSPITAL LAB See Below [facility] [address] [place] [address] * (ABNORMAL) Comprehensive Metabolic Panel (07/01/2023 7:23 AM EDT) Glucose 219(H) 65 - 99 mg/dL 07/01/2023 8:33 AM [facility] Comment:Fasting: <100 mg/dL, Non-Fasting: <200 mg/dL (ADA 2004) Blood Urea Nitrogen (BUN) 7(L) 8 - 21 mg/dL 07/01/2023 8:33 AM [facility] Creatinine 0.6 0.5 - 1.3 mg/dL 07/01/2023 8:33 AM [facility] eGFR >90 >59 07/01/2023 8:33 AM [facility] Comment:CKD-EPI (2020) in mL /min/1.73 sq meters. Sodium 139 136 - 145 mmol/L 07/01/2023 8:33 AM [facility] Potassium 3.8 3.4 - 5.3 mmol/L 07/01/2023 8:33 AM [facility] Chloride 104 98 - 107 mmol/L 07/01/2023 8:33 AM [facility] CO2 19(L) 22 - 33 mmol/L 07/01/2023 8:33 AM [facility] Calcium 8.7 8.7 - 10.5 mg/dL 07/01/2023 8:33 AM [facility] Alkaline Phosphatase 130(H) 45 - 128 U/L 07/01/2023 8:33 AM [facility] Aspartate Aminotrans (AST) 17 10 - 55 U/L 07/01/2023 8:33 AM EDT [facility] Alanine Aminotrans (ALT) 30 10 - 55 U/L 07/01/2023 8:33 AM EDT [facility] Bilirubin, Total 0.4 0.2 - 1.0 mg/dL 07/01/2023 8:33 AM EDT [facility] Protein, Total 6.5 6.3 - 8.3 g/dL 07/01/2023 8:33 AM EDT [facility] Albumin 4.0 3.5 - 5.0 g/dL 07/01/2023 8:33 AM EDT [facility] BUN/Creatinine Ratio 12 10.0 - 25.0 Ratio 07/01/2023 8:33 AM EDT [facility] Globulin 2.5 1.5 - 3.9 g/dL 07/01/2023 8:33 AM T [facility] Albumin/Globulin Ratio 1.6 1.0 - 3.0 Ratio 07/01/2023 8:33 AM EDT [facility] Anion Gap 16 7 - 17 07/01/2023 8:33 AM EDT [facility] Blood specimen (specimen) (Plasma/Serum) 07/01/2023 7:23 AM EDT 07/01/2023 8:06 AM EDT us Brad Panda MD LAB BLOOD ORDERABLES Final R esult HOSPITAL LAB See Below [address] [address] from Last 3 Months or Most Recently Relevant to Health Maintenance Insurance [facility] MEDICARE PART A & B Advance Directives * Full Code (Latest Code Status on File) Date Activated Date Inactivated Comments 06/30/2023 8:41 PM Question Answer Comments Decision Thoroughly Discussed with: Patient
[2025-04-02 13:48] LABS: Hematocrit 40.1 % (42.0-52.0); Hemoglobin 12.7 g/dl (14.0-18.0); Imm Gran Abs Auto 0.06 X10*3/uL (0.00-0.03); Imm Gran Pct Auto 0.6 % (0.0-0.4); Lymphocytes Absolute Auto 2.5 X10*3/uL (1.2-4.9); Mean Corpuscular HGB Conc 31.7 g/dl (31.0-36.0); Mean Corpuscular Hemoglobin 23.6 pg (27.0-33.0); Mean Corpuscular Volume 74.7 fL (80.0-98.0); NRBC Abs Auto 0.000 X10*3/uL (0.0-0.012); NRBC Pct Auto 0.0 /100WBC (0.0-0.2); Platelet Count 295 X10*3/uL (160-400); Red Blood Count 5.37 X10*6/uL (4.60-5.80); White Blood Count 9.6 X10*3/uL (4.8-10.8)
== END 2025-04-02 12:38 | disposition home or self-care (01) ==
LOC: HO.10HDL 12:37
DX: Z79.899 Other long term (current) drug therapy (principal)
CPT/HCPCS: 36415; 85025

== ENCOUNTER 2025-04-18 10:36 | Emergency (ER) | payer MEDICARE, MEDICAID, SELFPAY ==
--- NOTE | ~2025-04-18 | XR_ITS ---
EXAMINATION: XR CHEST 2 VIEWS HISTORY: CP COMPARISON: Comparison is made with the prior examination dated 08/18/2021. FINDINGS: PA and lateral views of the chest are submitted. The lungs are expanded and clear. There is no pleural effusion, pneumothorax, or pulmonary vascular congestion. The heart is normal in size. There is degenerative disc disease of the spine. XR/XR chest 2V IMPRESSION: No acute cardiopulmonary abnormality. Electronically signed by: Bunny Long MD 04/18/2025 11:12 AM EDT
--- NOTE | 2025-04-18 10:43 | ECG_ITS ---
Test Reason : CP Blood Pressure : */* mmHG Vent. Rate : 82 BPM Atrial Rate : 82 BPM P-R Int : 166 ms QRS Dur : 122 ms QT Int : 388 ms P-R-T Axes : 46 1 34 degrees QTcB Int : 453 ms Normal sinus rhythm Possible Left atrial enlargement Left ventricular hypertrophy with QRS widening ( R in aVL ) Nonspecific T wave abnormality Abnormal ECG When compared with ECG of 21-Apr-2024 19:42, No significant change was found Referred By: Generic ED Physician Electronically Signed By: AILIN BOLTON
[2025-04-18 10:59] LABS: MANUAL DIFF FLAG NO
[2025-04-18 11:00] VITALS: BP 159/73; PULSE 82; RESP 16; TEMP 36.2; O2SAT 96; BMI 49.9
[2025-04-18 11:00] LABS: Hematocrit 40.0 % (42.0-52.0); Hemoglobin 12.8 g/dl (14.0-18.0); Imm Gran Abs Auto 0.07 X10*3/uL (0.00-0.03); Imm Gran Pct Auto 0.9 % (0.0-0.4); Lymphocytes Absolute Auto 2.0 X10*3/uL (1.2-4.9); Mean Corpuscular HGB Conc 32.0 g/dl (31.0-36.0); Mean Corpuscular Hemoglobin 23.7 pg (27.0-33.0); Mean Corpuscular Volume 73.9 fL (80.0-98.0); NRBC Abs Auto 0.000 X10*3/uL (0.0-0.012); NRBC Pct Auto 0.0 /100WBC (0.0-0.2); Platelet Count 279 X10*3/uL (160-400); Red Blood Count 5.41 X10*6/uL (4.60-5.80); White Blood Count 8.2 X10*3/uL (4.8-10.8)
[2025-04-18 11:14] LABS: Anion Gap 12 (12-20); Blood Urea Nitrogen 7 mg/dL (9-16); Calcium 9.2 mg/dL (8.4-10.2); Carbon Dioxide 25 mmol/L (22-29); Chloride 106 mmol/L (96-108); Creatinine Clr Calc Pharmacy 165.1; Estimated Glomerular Filt Rate > 60; Potassium 3.7 mmol/L (3.3-5.1); Sodium 139 mmol/L (135-145)
[2025-04-18 11:28] LABS: Troponin-I High Sensitivity < 2.7 ng/L (<3.5-35.0)
--- OUTSIDE RECORDS SUMMARY | 2025-04-18 16:00 | XMS_ITS | Clinical Summary ---
Author Organization [facility] ity Address [address] [place] [address] Care Team Providers Care Custodian Athletic Equipment Name Role Phone Unavailable Primary Care Provider [...]
--- OUTSIDE RECORDS SUMMARY | 2025-04-18 16:00 | XMS_ITS | Clinical Summary ---
Author Organization [facility] Address [address] [place] [address] Care Team Providers Care Exploration Geologist Name Role Phone Unavailable Primary Care Provider [...] 12.3(H) <5.7 % 07/01/2023 8:48 AM EDT [facility] Comment: A1c% Interpretation 5.7 - 6.0 [...] Final R esult HOSPITAL LAB See Below [facility] [address] [place] [address] * (ABNORMAL) Comprehensive Metabolic Panel (07/01/2023 7:23 [...] - 55 U/L 07/01/2023 8:33 AM EDT [facility] Alanine Aminotrans (ALT) 30 10 - 55 U/L 07/01/2023 8:33 AM EDT [facility] Bilirubin, Total 0.4 0.2 - 1.0 mg/dL 07/01/2023 8:33 AM EDT [facility] Protein, Total 6.5 6.3 - 8.3 g/dL 07/01/2023 8:33 AM EDT [facility] Albumin 4.0 3.5 - 5.0 g/dL 07/01/2023 8:33 AM EDT [facility] BUN/Creatinine Ratio 12 10.0 - 25.0 Ratio 07/01/2023 8:33 AM EDT [facility] Globulin 2.5 1.5 - 3.9 g/dL 07/01/2023 8:33 AM T [facility] Albumin/Globulin Ratio 1.6 1.0 - 3.0 Ratio 07/01/2023 8:33 AM EDT [facility] Anion Gap 16 7 - 17 07/01/2023 8:33 AM EDT [facility] Blood specimen (specimen) (Plasma/Serum) 07/01/2023 7:23 AM EDT 07/01/2023 8:06 AM EDT us Brad Panda MD LAB BLOOD ORDERABLES Final R esult HOSPITAL LAB See Below [address] [address] from Last 3 Months or Most Recently Relevant to Health Maintenance Insurance [facility] MEDICARE PART A & B Advance Directives * Full Code (Latest Code Status on File) Date Activated Date Inactivated Comments 06/30/2023 8:41 PM Question Answer Comments Decision Thoroughly Discussed with: Patient
--- OUTSIDE RECORDS SUMMARY | 2025-04-18 16:00 | XMS_ITS ---
Author Name [facility] Organization Unknown Encounters Encounter Type Encounter Reason Primary Diagnosis Location Date Inpatient Periapical abscess without sinus Periapical abscess without sinus [facility] 06/30/2023 Ambulatory [facility] 06/30/2023 Care Team Organization Name Specialty Phone Email Start Date End Da te [facility] 06/30/2023 11/28/2024 [facility] 06/30/2023 06/30/2023
--- NOTE | 2025-04-18 16:11 | ED_ITS ---
HPI - Chest Pain General Chief Complaint: Chest Pain Stated Complaint: chest pain Time Seen by Provider: 04/18/25 16:10 Source: patient Mode of arrival: ambulatory Limitations: no limitations History of Present Illness ED Provider: Mariah Flores PA-C HPI narrative: Patient seeks medical attention in emergency department today for evaluation of right-sided chest wall pain over the axillary and anterior chest wall region that has occurred over a month ago. He states it has been basically always stool but when he moves his right arm out or across his chest it reproduces the pain in this area. Eating as well as sitting versus staying and laying down does make no difference for it. He has not had any rashes to the area. The only OTC measure that he has tried was a hot shower which made no clinical difference but he also did not have it run on there. He has tried no other therapy for this. He denies having any falls or trauma no paresthesias. No radiation. It is not worse with deep inspiration or bowel movements. He is denying abdominal pain no nausea no vomiting and no diarrhea. Patient then retracted TMs they will sometimes he feels nauseous if he does not eat but he does not currently feel nauseous. He denying any dizziness or headaches no fevers and no chills. No changes to his appetite or unintentional weight loss. He denies any symptoms he is able tolerate p.o. fluids and voiding regularly. This is the 1st time he has sought medical attention for this. No prior VTE. No wheezing or sob. Related Data Home Medications ?Medication ?Instructions ?Recorded ?Confirmed clozapine 200 mg tablet 200 mg PO BEDTIME 04/21/24 0 04/21/24 lithium carbonate 300 mg tablet 300 mg PO DAILY 04/21/24 metformin 1,000 mg tablet 1,000 mg PO BID 04/21/2407/05 olanzapine 5 mg tablet 5 mg PO BEDTIME 04/21/2407/05 omeprazole 20 mg capsule,delayed 20 mg PO DAILY 04/21/24 release prazosin 1 mg capsule 1 mg PO BEDTIME 04/21/2407/05 sertraline 50 mg tablet 50 mg PO DAILY 04/21/2404/12 trazodone 100 mg tablet 100 mg PO BEDTIME 04/21/24 0 04/21/24 Previous Rx's ?Medication ?Instructions ?Recorded lidocaine 5 % topical patch 1 patch topical DAILY pain #30 ea 04/18/25 Allergies Allergy/AdvReac Type Severity Reaction Status Date / Time No Known Allergies (No Known Allergy Verified 04/18/25 11:02 Allergies*) Review of Systems 2 Review of Systems: Yes all other systems are reviewed and are negative PMFSH Past Medical History Attestation statement: The following information was validated with the patient. Source: old records reviewed and nursing notes reviewed Medical History Post traumatic stress disorder (PTSD) Noncompliance by refusing intervention or support Schizoaffective disorder, bipolar type Depression Social History Social History Household Members: None Housing: Apartment Do you presently have visiting nurse or other home services: No Alcohol intake: current Alcohol intake frequency: holidays/special occasions only Alcohol type: beer Patient Tobacco Use Status: Current someday Tobacco user Tobacco use type: Cigarette Cigarette Packs Per Day: 0 Cigarettes Per Day: 0 Years Smoked: 1 year e-Cigarette/Vaping Use: Never Used Second Hand Smoke Exposure: Yes Substance Use Type: Marijuana Advance Directives: No Advance Directives Information Provided: No service: No Sexual orientation: Straight/Heterosexual Physical Exam 2 Vital Signs: Vital Signs: Last Vital Signs Temp 97 F 04/18/25 16:50 Pulse 87 04/18/25 16:50 Resp 16 04/18/25 16:50 BP 160/85 H 04/18/25 16:50 Pulse Ox 95 04/18/25 16:50 O2 Del Method Room Air 04/18/25 16:50 BMI result Body Mass Index 49.9 Const: General: cooperative, healthy appearing, comfortable, no acute distress and well developed Nutritional Appearance: obese O rientation/consciousness: patient oriented x3 Limitations: no limitations HEENT: Head: Yes normal to inspection and Yes No palpable skull fracture present Ears: hearing grossly normal bilaterally General nose exam: Normal external nose present Mouth: Normal oral and palatal mucosa present Teeth and gingiva: dentition normal Throat: Yes posterior oropharynx normal Eyes: General: appearance normal, both eyes and all related structures A lignment and Position: alignment normal Periorbital: periorbital findings normal Eyelids: Yes eyelids normal Conjunctivae: conjunctivae normal S clerae: sclerae normal Corneas: corneas normal Pupils: Equal, round and reactive pupils present EOM: EOMs intact bilaterally Neck: Neck: Yes normal visual inspection, Yes full ROM and Yes no lymphadenopathy Lymphatic: no lymphadenopathy noted Chest: Chest palpation & inspection: normal inspection of the chest and tenderness (right anterior lower mid axillary anterior chest wall, no crepitus) Breast/axilla inspection: normal inspection of the breasts Resp: Effort & Inspection: normal respiratory effort and able to speak in complete sentences Auscultation: clear to auscultation bilaterally P ercussion: percussion normal Cardio: Jugular venous distension: no JVD Palpation: normal PMI Rate: r egular rate Rhythm: regular rhythm Bruits: other (no bruit) Peripheral pulses: Peripheral pulses 2+ throughout GI: Inspection: Yes normal to inspection Palpation (GI): Soft to palpation, No hepatosplenomegaly present and Other GI palpation findings present (obese but nontender) Rectal Exam - Male: Yes deferred : General: Yes no CVA tenderness Back/Spine/Pelvis: Back: no CVA tenderness Thoracic/Lumbar Spine: thoracic and lumbar spine normal to inspection Skin: General skin exam: no rashes or lesions noted Neuro: General: patient oriented x3 Cranial nerves: Yes Equal, round and reactive pupils present Medications Administered Discontinued Medications Generic Name Dose Route Start Last Admin Trade Name Freq PRN Reason Stop Dose Admin Lidocaine 1 patch 04/18/25 16:23 04/18/25 16:31 Lidocaine 4 % Patch Adh..Patch TRANSDERMA 04/18/25 16:24 1 patch ONCE ONE Administration Protocol Medical Decision Making Medical Decision Making [facility] Narrative: Well-appearing 39-year-old male with history of PTSD schizoaffective disorder and anemia presenting to the emergency department today for evaluation of reproducible right-sided chest wall pain would upper limb movement for the past month. Patient had a rapid medical exam in triage he had basic labs and troponin along with EKG and chest x-ray ordered ahead of time. These resulted prior to me receiving care of the patient. Upon arrival here he is afebrile and well-appearing not appearing any acute respiratory distress. On physical exam he does have a positive serratus anterior strength test on right side and TTP of this muscle without crepitus or skin changes noted. EKG nonspecific T-wave abnormality and CXR normal.? DC: not likely younger normal EKG, neg troponin onset one month ago, can be ruled out PE: PERC score is 0, can rule out clinically PNA: no infectious sxs, CXR is clear PTX: no hypoxic or tachycardic, not pleuritic, CXR is normal pericarditis: no diffuse ST elevations, no friction rub on exam aortic dissection: BP normal, pulses equal and symmetric, no widened mediastinum on CXR mass effect: normal ekg Musculoskeletal: potential, tender chest wall + serratus anterior chest wall, not consistent with costochondritis GERD: potential no food association, pt denies, currently asx Anxiety: possible has hx of this and panic attacks No life-threatening etiology identified. She is stable with benign reassuring exam, will go to ED if worse. Patient agrees with plan. d/c to home. Differential Diagnosis Differential Diagnoses: The differential diagnosis associated with the presentation includes ACS GERD muscle strain rib injury Admission/Observation Consideration of admission/observation: Escalation of care including admission/observation considered Patient would have been admitted to the hospital had his work up had any findings where hospital admission was appropriate and his clinical presentation warranted hospital admission. Lab Data MDM Lab Attestation statement: I reviewed the patient's lab results. 04/18/25 10:53 04/18/25 10:53 Labs: Lab Results 04/18/25 Range/Units 10:53 WBC 8.2 (4.8-10.8) X10*3/uL RBC 5.41 (4.60-5.80) X10*6/uL Hgb 12.8 L (14.0-18.0) g/dl Hct 40.0 L (42.0-52.0) % MCV 73.9 L (80.0-98.0) fL MCH 23.7 L (27.0-33.0) pg MCHC 32.0 (31.0-36.0) g/dl RDW 15.1 (11.0-16.0) % Plt Count 279 (160-400) X10*3/uL MPV 8.7 L (9.4-12.4) fL Immature Gran % (Auto) 0.9 H (0.0-0.4) % Neut % (Auto) 63.3 (45-73) % Lymph % (Auto) 24.0 (20-40) % Rooks % (Auto) 7.7 (2-11) % Eos % (Auto) 3.5 (0-4) % Baso % (Auto) 0.6 (0-2) % Lymph # (Auto) 2.0 (1.2-4.9) X10*3/uL Rooks # (Auto) 0.6 (0.1-1.2) X10*3/uL Eos # (Auto) 0.3 (0.0-0.4) X10*3/uL Baso # (Auto) 0.1 (0.0-0.2) X10*3/uL Abs Immat Gran (auto) 0.07 H (0.00-0.03) X10*3/uL Absolute Neuts (auto) 5.2 (2.0-8.3) x10*3/uL Absolute Nucleated RBC 0.000 (0.0-0.012) X10*3/uL Nucleated RBC % (auto) 0.0 (0.0-0.2) /100WBC Sodium 139 (135-145) mmol/L Potassium 3.7 (3.3-5.1) mmol/L Chloride 106 (96-108) mmol/L Carbon Dioxide 25 (22-29) mmol/L Anion Gap 12 (12-20) BUN 7 L (9-16) mg/dL Creatinine 0.89 (0.5-1.4) mg/dL Estim Creat Clear Calc 165.1 Estimated GFR > 60 Random Glucose 208 H (60-115) mg/dL Calcium 9.2 (8.4-10.2) mg/dL Troponin I High Sens < 2.7 (<3.5-35.0) ng/L Independent Interpretation I performed an independent interpretation of an: EKG and Plain X-Ray Interpretation: No ischemia, no PTX, PNA< or widened mediastinum/ mass on CXR. Radiology Impression Discussion of test interpretation with radiology: I have reviewed the radiologist's reading. Tests considered The following testing was considered but not selected: Would have considered CTA of chest if PERC score was not 0. Prescription Management I considered prescription management with: Pain Medication Chronic Conditions Patient?s care impacted by: Other Social Determinants Patient?s care significantly limited by Social Determinants of Health including: Other Social Determinant of Health Discharge Plan Discharge Clinical Impression: Muscle strain of anterior chest wall Patient Disposition: Home, Self-Care Instructions: Muscle Strain (DC) Additional Instructions: You were seen in the emergency department today following a month of right-sided chest wall discomfort worse with arm movement moving to region of your chest wall this is most consistent with a strain of your serratus anterior muscle. You had reassuring labs today did not show any evidence for infection or cardiac pulmonary etiology. We discussed modification of activities at home such as putting or drinks on your right side and severe left side when resting or use her left hand to drink if your table is on that side. For any new or concerning symptoms please return to the emergency department. Information about your diagnosis: A serratus anterior muscle strain refers to an injury to the serratus anterior muscle, which is located on the side of the chest, beneath the armpit. It plays an important role in stabilizing the shoulder blade and helping to lift the arm. A strain occurs when the muscle is overstretched or torn, often due to repetitive activity, trauma, or overuse. Patient Information for Serratus Anterior Muscle Strain: 1. Symptoms: * Pain in the upper chest, typically on the side of the ribcage, under the armpit, or along the side of the ribs. * Sharp or aching pain that may worsen with specific movements such as lifting the arm, reaching, or pushing. * Difficulty with breathing deeply or performing certain motions due to pain. * Tenderness to the touch along the affected area. * Weakness or discomfort when trying to push or pull with the arm. * In some cases, there may be mild swelling or bruising in the affected area. 2. Common Causes: * Overuse or repetitive movements involving the shoulder and upper body (e.g., overhead sports like swimming, tennis, or weightlifting). * Trauma or direct injury to the chest wall (e.g., a fall, collision, or sudden twisting motion). * Improper technique during exercise or lifting can strain the muscle. * Sudden, forceful movements such as reaching, lifting, or pushing. 3. Diagnosis: * Physical examination: A healthcare provider will palpate (feel) the chest and side to assess tenderness, swelling, and range of motion. * Movement testing: They may ask the patient to perform specific movements (such as lifting the arm overhead) to see if it causes pain or discomfort, which can help confirm a muscle strain. * Imaging: In some cases, X-rays or MRI may be ordered if there is concern for more serious injury (such as a rib fracture or damage to other structures). 4. Treatment: Rest and Ice: * Rest: Avoid activities that aggravate the pain, especially overhead movements and heavy lifting. * Ice: Apply ice or a cold pack to the affected area for 15?20 minutes, several times a day, for the first 48?72 hours to reduce inflammation and swelling. Pain Relief: * Hoei-vfi-[id number] pain relievers like ibuprofen or acetaminophen can help manage pain and inflammation. Always follow dosing instructions and consult a healthcare provider if you have concerns, especially if you're on other medications. Compression and Support: * Elastic bandage: Wrapping or using a chest support can provide compression, helping reduce swelling and providing stability to the area. However, this should not be too tight as it can restrict breathing. Gentle Stretching and Strengthening: * After the acute pain subsides, gentle stretching and strengthening exercises can help restore range of motion and prevent future injury. A physical therapist may recommend specific exercises for the serratus anterior and surrounding muscles. * Strengthening: Gradually, as healing occurs, strengthening exercises can help stabilize the shoulder and chest muscles. Avoid pushing into pain. Gradual Return to Activity: * Avoid rushing back into activities that stress the chest and shoulder muscles. A slow, progressive return to activity is mckeon to preventing re-injury. 5. Recovery Timeline: * Mild strain: Recovery can take anywhere from 1-2 weeks, depending on the severity of the strain. * Moderate to severe strain: Recovery may take 3-6 weeks or longer, particularly if there is significant muscle damage. * Chronic cases: If not properly treated or if the injury is recurrent, the strain can become chronic and may require more intensive rehabilitation. 6. When to Seek Medical Attention: * If the pain does not improve with rest and basic treatment. * If there is severe pain, swelling, or bruising that persists. * If there is difficulty breathing deeply or if the pain radiates to the arm, back, or jaw (which could suggest a more serious condition such as heart problems). * If there is a clicking or popping sound during movement, which might indicate more severe injury. 7. Preventive Measures: * Proper warm-up and stretching before engaging in any strenuous activity. * Correct posture and body mechanics during exercise or lifting. * Strengthening of the upper body muscles, including the serratus anterior, to help prevent strain. * Avoiding overtraining and allowing sufficient recovery time between workouts. Summary: A serratus anterior muscle strain can be treated effectively with rest, ice, pain relief, and gradual rehabilitation. The condition typically improves over time with proper care, but it's important to follow appropriate guidelines for recovery to avoid reinjury. If symptoms are severe or persistent, consult a healthcare provider for further evaluation and treatment. Prescriptions: New lidocaine 5 % adhesive patch,medicated 1 patch topical DAILY Qty: 30 0RF Rx Instructions: leave on most painful area for up to 12 hrs No Action prazosin 1 mg capsule 1 mg PO BEDTIME olanzapine 5 mg tablet 5 mg PO BEDTIME trazodone 100 mg tablet 100 mg PO BEDTIME metformin 1,000 mg tablet 1,000 mg PO BID omeprazole 20 mg capsule,delayed release(DR/EC) 20 mg PO DAILY lithium carbonate 300 mg tablet 300 mg PO DAILY sertraline 50 mg tablet 50 mg PO DAILY clozapine 200 mg tablet 200 mg PO BEDTIME Referrals: Physician,Unknown J [Primary Care Provider, Medical] Interventions: ED Discharge Assessment Last Done: 04/18/25 16:50 Discharge Date/Time: 04/18/25 16:53 Print Language: Kinyarwanda
[2025-04-18] MEDS: Lidocaine 4 % Patch ADH..PATCH 1 PATCH TRANSDERMA (16:31)
[2025-04-18 16:50] VITALS: BP 160/85; PULSE 87; RESP 16; TEMP 36.1; O2SAT 95
== END 2025-04-18 16:53 | disposition home or self-care (01) ==
PROVIDERS: Emergency Provider Emergency Medicine
DX: R07.89 Other chest pain (principal); S16.1XXA Strain of muscle, fascia and tendon at neck level, initial encounter; X58.XXXA Exposure to other specified factors, initial encounter; Y93.89 Activity, other specified; Y92.89 Other specified places as the place of occurrence of the external cause; Y99.8 Other external cause status
CPT/HCPCS: 36415; 71046; 80048; 84484; 85025; 93005; 99283; 99284

== ENCOUNTER → 2025-04-18 10:43 | Outpatient (BNV) | payer MEDICARE, MEDICAID, SELFPAY | PROVIDERS: Visit Provider Radiology Diagnostic Radiology | DX: R07.9 Chest pain, unspecified (principal) | CPT/HCPCS: 71046 ==

== ENCOUNTER → 2025-04-18 10:43 | Outpatient (BNV) | payer MEDICARE, MEDICAID, SELFPAY | PROVIDERS: Emergency Provider Emergency Medicine; Visit Provider Internal Medicine | DX: I51.7 Cardiomegaly (principal) | CPT/HCPCS: 93010 ==

== ENCOUNTER 2025-06-25 10:51 | Outpatient (REF) | payer MEDICARE, MEDICAID, SELFPAY ==
--- OUTSIDE RECORDS SUMMARY | 2025-06-25 12:59 | XMS_ITS | Clinical Summary ---
Author Organization [facility] ity Address [address] [place] [address] Care Team Providers Care Sand Bobber Name Role Phone Unavailable Primary Care Provider [...] of 3 - 19+ 3-dose series) 2002 HPV Vaccines (1 - 3-dose SCD M series) 2010 Depression Screening 09/12/2024 COVID-19 Vaccine ( - 2023-2 5 season) 2025 Influenza Vaccine (#1) 2025 RSV Immunization Adult Patie nts (1 - 1-dose 75+ series) 2058 HIB Vaccines Aged Out No longer eligi [...]
--- OUTSIDE RECORDS SUMMARY | 2025-06-25 12:59 | XMS_ITS | Clinical Summary ---
Author Organization [facility]ly [facility] Address [address] [place] [address] Care Team Providers Care Multifocal Button Grinder Name Role Phone Unavailable Primary Care Provider [...] Ophthalmology Exam 1993 HIV Screening 1996 Microalbumin/Creatinine Ratio Urine 2001 DTaP/Tdap/Td Vaccines (1 - Tdap) 2002 Hepatitis B Vaccines (1 of 3 - 19+ 3-dose series) 2002 Pneumococcal Vaccine: Pediat ruddy (0-5 Years) and At-Risk Patients (6 to 49 Years) (1 of 2 - PCV) 2002 Diabetic Self-Management Tra ining (DSMT) 07/01/2023 Hemoglobin A1C 10/01/2023 07/01/2023 Creatinine with GFR 07/01/2024 07/01/2023, 06/30/2023, 06/30/2023 Medical Nutrition Therapy (MNT) 09/12/2024 Influenza Vaccine 04/12/2025 COVID-19 Vaccine ( - season) 2025 HPV Vaccines (No Doses Required) Completed Procedures Procedure Name Priority Date/Time Associated Diagnosis Comments HEMOGLOBIN A1C WITH ESTIMATED AVERAGE GLUCOSE STAT 07/01/2023 7:23 AM EDT COMPREHENSIVE METABOLIC PANEL STAT 07/01/2023 7:23 AM EDT from Last 3 Months or Most Recently Relevant to Health Maintenance Results * (ABNORMAL) Hemoglobin A1c with Estimated Average Glucose (07/01/2023 7:23 AM EDT) Hemoglobin A1C 12.3(H) <5.7 % 07/01/2023 8:48 AM EDT [facility] Comment: A1c% Interpretation 5.7 - 6.0 Increase risk of diabetes 6.1 - 6.4 Higher risk of diabetes > or = 6.5 Consistent with diabetes Diabetes Care, 33(Supp 1):S1-S61, 2010 Estimated Average Glucose 306 mg/dL 07/01/2023 8:48 AM [facility] Blood specimen (specimen) Blood specimen / Unknown 07/01/2023 7:23 AM EDT 07/01/2023 8:06 AM EDT us Brad Panda MD LAB BLOOD ORDERABLES Final R esult [facility]OSPITAL LAB See Below [facility] [address] [place] [address] * (ABNORMAL) Comprehensive Metabolic Panel (07/01/2023 7:23 AM EDT) Glucose 219(H) 65 - 99 mg/dL 07/01/2023 8:33 AM [facility] Comment:Fasting: <100 mg/dL, Non-Fasting: <200 mg/dL (ADA 2005) Blood Urea Nitrogen (BUN) 7(L) 8 - 21 mg/dL 07/01/2023 8:33 AM [facility] Creatinine 0.6 0.5 - 1.3 mg/dL 07/01/2023 8:33 AM [facility] eGFR >90 >59 07/01/2023 8:33 AM [facility] Comment:CKD-EPI (2020) in mL /min/1.73 sq meters. Sodium 139 136 - 145 mmol/L 07/01/2023 8:33 AM [facility] Potassium 3.8 3.4 - 5.3 mmol/L 07/01/2023 8:33 AM [facility] Chloride 104 98 - 107 mmol/L 07/01/2023 8:33 AM [facility] CO2 19(L) 22 - 33 mmol/L 07/01/2023 8:33 AM [facility] Calcium 8.7 8.7 - 10.5 mg/dL 07/01/2023 8:33 AM [facility] Alkaline Phosphatase 130(H) 45 - 128 U/L 07/01/2023 8:33 AM [facility] Aspartate Aminotrans (AST) 17 10 - 55 U/L 07/01/2023 8:33 AM EDT [facility] Alanine Aminotrans (ALT) 30 10 - 55 U/L 07/01/2023 8:33 AM EDT [facility] Bilirubin, Total 0.4 0.2 - 1.0 mg/dL 07/01/2023 8:33 AM EDT [facility] Protein, Total 6.5 6.3 - 8.3 g/dL 07/01/2023 8:33 AM EDT [facility] Albumin 4.0 3.5 - 5.0 g/dL 07/01/2023 8:33 AM EDT [facility] BUN/Creatinine Ratio 12 10.0 - 25.0 Ratio 07/01/2023 8:33 AM EDT [facility] Globulin 2.5 1.5 - 3.9 g/dL 07/01/2023 8:33 AM EDT [facility] Albumin/Globulin Ratio 1.6 1.0 - 3.0 Ratio 07/01/2023 8:33 AM EDT [facility] Anion Gap 16 7 - 17 07/01/2023 8:33 AM T [facility] Blood specimen (specimen) (Plasma/Serum) 07/01/2023 7:23 AM EDT 07/01/2023 8:06 AM EDT Brad Panda MD LAB BLOOD ORDERABLES Final R esult HOSPITAL LAB See Below [address] [address] from Last 3 Months or Most Recently Relevant to Health Maintenance Insurance [facility] MEDIC[facility] PART A & B Advance Directives * Full Code (Latest Code Status on File) Date Activated Date Inactivated Comments 06/30/2023 8:41 PM Question Answer Comments Decision Thoroughly Discussed with: Patient
[2025-06-25 13:15] LABS: MANUAL DIFF FLAG NO
[2025-06-25 13:35] LABS: Hematocrit 46.4 % (42.0-52.0); Hemoglobin 14.5 g/dl (14.0-18.0); Imm Gran Abs Auto 0.08 X10*3/uL (0.00-0.03); Imm Gran Pct Auto 0.7 % (0.0-0.4); Lymphocytes Absolute Auto 2.3 X10*3/uL (1.2-4.9); Mean Corpuscular HGB Conc 31.3 g/dl (31.0-36.0); Mean Corpuscular Hemoglobin 23.6 pg (27.0-33.0); Mean Corpuscular Volume 75.4 fL (80.0-98.0); NRBC Abs Auto 0.000 X10*3/uL (0.0-0.012); NRBC Pct Auto 0.0 /100WBC (0.0-0.2); Platelet Count 305 X10*3/uL (160-400); Red Blood Count 6.15 X10*6/uL (4.60-5.80); White Blood Count 11.3 X10*3/uL (4.8-10.8)
[2025-06-25 13:45] LABS: Hemoglobin A1C 234.4687 umol/L; Total Hemoglobin (HGBA1C) 3633.6194 umol/L
[2025-06-25 14:14] LABS: Alanine Aminotransferase 35 U/L (0-40); Albumin Level 4.6 g/dL (3.5-5.0); Alkaline Phosphatase 151 U/L (39-117); Anion Gap 15 (12-20); Aspartate Amino Transferase 35 U/L (5-37); Blood Urea Nitrogen 13 mg/dL (9-16); Calcium 9.6 mg/dL (8.4-10.2); Carbon Dioxide 25 mmol/L (22-29); Chloride 103 mmol/L (96-108); Cholesterol 253 mg/dL (<200); Estimated Glomerular Filt Rate > 60; HDL Cholesterol 27 mg/dL (>40); Potassium 4.0 mmol/L (3.3-5.1); Sodium 139 mmol/L (135-145); Total Protein 7.7 g/dL (6.5-8.0); Triglycerides 1501 mg/dL (<150)
[2025-06-25 14:27] LABS: Free T4 (Free Thyroxine) 0.89 ng/dL (0.71-1.85); Thyroid Stimulating Hormone 2.17 uIU/mL (0.32-4.0)
== END 2025-06-25 10:52 | disposition home or self-care (01) ==
LOC: HO.10HDL 10:51
PROVIDERS: Visit Provider Nurse Practitioner Family
DX: F25.1 Schizoaffective disorder, depressive type (principal); Z79.899 Other long term (current) drug therapy
CPT/HCPCS: 36415; 80053; 80061; 83036; 84439; 84443; 85025